=== PATIENT | male | born 1940 | race Caucasian/White ===

== ENCOUNTER 2017-02-25 14:06 | Inpatient (IN) | payer OTHER ==
[~2017-02-25] VITALS: Ht 175.3 cm; Wt 93.0 kg
[~2017-02-25 14:06] MED LIST: ASPCH81X PO; ATOR-24 PO; CHOLTAB3 PO; CLOP1TAB5 PO; COEN100C3 PO; LISI-729 PO; METO25TA3 PO; MULT-55 PO; MULTTAB58 PO; NTRGSL/4 SL; VITA400C15 PO
[2017-02-25 17:00] VITALS: BP 145/78; PULSE 57; TEMP 36.6; O2SAT 95; Ht 175.3 cm; Wt 93.0 kg
[2017-02-25] MEDS ORDERED: ACETAMINOPHEN 325 MG TAB PO PRN (17:00)
[2017-02-25] MEDS ORDERED: NITROGLYCERIN 0.4 MG SL PER TAB CHARGE SL PRN ×2 (17:00→18:45)
[2017-02-25 17:25] LABS: BASO % 0.4 %; BASO ABS # 0.03 K/uL (0-0.2); COMPLETE YES; EOS % 3.4 %; IG% 0.2 %; LYMPH % 29.7 %; LYMPH ABS # 2.39 K/uL (1.2-3.4); MEAN CORPUSCULAR HEMOGLOBIN 29.1 pg (25-34); MEAN CORPUSCULAR HGB CONC 34.3 g/dl (32-36); MEAN PLATELET VOLUME 9.1 fL (7.4-10.4); MONO % 9.1 %; NEUT % 57.2 %; PLATELET COUNT 156 K/uL (130-400); RED BLOOD COUNT 4.94 M/uL (4.7-6.1); WHITE BLOOD COUNT 8.05 K/uL (4.8-10.8)
[2017-02-25 17:51] LABS: ALT/SGPT 28 U/L (12-78); AST/SGOT 39 U/L (15-37); BLOOD UREA NITROGEN 18 mg/dl (7-18); BUN/CREATININE RATIO 22.2 (10-20); CALCIUM 8.3 mg/dl (8.5-10.1); CARBON DIOXIDE 25 mmol/L (21-32); CHLORIDE 109 mmol/L (98-107); CREATININE 0.82 mg/dl (0.60-1.40); GLUCOSE 153 mg/dl (70-99); POTASSIUM 3.5 mmol/L (3.5-5.1); SODIUM 141 mmol/L (136-145)
[2017-02-25 17:55] LABS: PARTIAL THROMBOPLASTIN RATIO 2.2; PROTHROMBIN TIME (PATIENT) 11.1 SECONDS (9.0-12.0)
[2017-02-25 17:58] LABS: ALB/GLOB RATIO 0.8 (0.9-2); ALKALINE PHOSPHATASE 123 U/L (45-117)
[2017-02-25] MEDS ORDERED: NITROGLYCERIN OINT 2% 1GM PACKET EXT SCH (18:15)
[2017-02-25] MEDS ORDERED: HEPARIN 25,000 UNIT/500ML D5W 500 ML IV PRN (19:15)
[2017-02-25 19:16] VITALS: BP 139/71; PULSE 78; TEMP 36.7; O2SAT 98
--- NOTE | 2017-02-25 19:21 | History and Physical ---
History & Physical Date & Time of Service: Feb 25, 2017 at 17:54 Chief Complaint: Chest Pain Primary Care Physician: Nilo Whitley DO . History of Present Illness Source: patient, clinic records, hospital records Pt is 77 y/o M with PMHx CAD, STEMI s/p 2 stents placed to LAD in 2012, HTN, Hyperlipidemia, CVA, presents from transfer from [facility] ER with c/o CP. Pt reports hx anterior chest pressure and tightness x 2 weeks that he would wake up with and lasted approx 2-3 hours. States he would burp a lot and then felt like CP resolved.No prior self treatment attempted. Denies relation CP with eating or worsening CP with exertion. Today he states woke up with the CP again , and later in morning was helping with meals on wheels when pain increased to 6 -7 out of 10 on pain scale and was constant with associated diaphoresis. Reports this CP today feels like his previous PR and He called EMS and was transported to [facility] ER. Was given 4 baby ASA. Pt states during transport pain decreased to 3/10 on pain scale without further intervention. In ER it is reported EKG with ST depression in V2, V3, V4 and elevation in AVR. Negative Troponin. Vitals were stable with BP: 126/89, Pulse: 92, Temp: 98.4F, Resp: 20, Pulse ox:97%. CXR with no acute infiltrate or cardiomegaly. He was started on Heparin drip. Pt follows with [facility] and was transferred here. Upon arrival here pt reports is CP free. Repeat troponin here is 6, EKG NSR rate 63 with 1st degree AV block, no significant ST elevation noted Pt does report 8 days ago started with stuffy nose and productive cough of yellow sputum. Last week tried OTC cold/flu medicine with minimal relief, hasn' t taken for 4 days. Denies fever/chills, SOB, hemoptysis. Pt was given Zithromax 500mg po at the ER. Sputum culture pending. Hx ECHO 05/2016 and EF:60-64%. Hx arterectomy LAD in 1993. Pt with hx bradycardia (HR 40's with 1st degree block) on metoprolol 12.5mg and metoprolol has been held since. Denies N/V/D/C, ADAMS, dizziness, syncope, vision changes, neck pain, neck stiffness, palpitations, sore throat, choking, otalgia, abdominal pain, paresthesias, weakness, extremity weakness, extremity edema, rashes, urinary symptoms. Past Medical/Surgical History Medical Problems: (1) Carotid artery disease Permanent Comment: 01/29/15 carotid US- 50-69% stenosis MYKEL, less than 50% stenosis LICA Status: Chronic (2) Coronary angioplasty Status: Chronic (3) Coronary artery disease Permanent Comment: S/p coronary intervention in 1993 undergoing coronary atherectomy of the left anterior descending. S/p acute coronary intervention for STEMI December 15, 2012, receiving two overlapping bare metal stents to the mid LAD. Moderate residual disease of the coronaries up to 40% left main, distal disease to the circumflex right coronary artery. Status: Chronic (4) Dyslipidemia Status: Chronic (5) History of bradycardia Permanent Comment: Holter monitor 06/16/16- dominant rhythm - sinus rhythm with first-degree AV block. PACs - mild frequency. PVCs - mild in frequency, with 141 isolated premature ventricular contractions, 8 ventricular couplets, 3 episodes of ventricular bigeminy, and 3 ventricular runs. Symptoms - none reported. Sinus bradycardia was noted with rates of 43 to 49 beats per minute during anticipated hours of sleep. No significant pauses were noted. No episodes of high-grade atrioventricular block noted. Status: Chronic (6) History of TIA (transient ischemic attack) Permanent Comment: 1995, negative workup, transient numbness Status: Chronic (7) HTN (hypertension) Status: Chronic Surgical Problems: (1) H/O lithotripsy Status: Chronic (2) S/P coronary artery stent placement Permanent Comment: 12/15/12, [facility], Dr. Shukla, 2 BMS to LAD Status: Chronic (3) S/p ureteral stent Status: Chronic Family History Noncontributory Social History Smoking Status: Former Smoker (Quit 1979, previously smoked 1ppd x 20 years) Smokeless Tobacco Use: Yes (snuff) Alcohol Use: socially (1 glass wine once a month) Drug Use: none Marital Status: Housing status: lives with significant other Occupational Status: retired Immunizations History of Influenza Vaccine: N/A History of Tetanus Vaccine?: Yes History of Pneumococcal: Yes Pneumococcal Date: Jul 23, 2011 History of Hepatitis B Vaccine: No Multi-Drug Resistant Organisms History of MDRO: No Allergies Coded Allergies: Iodine (Verified Allergy, Unknown, 06/22/09) Povidone (Verified Allergy, Unknown, 06/22/09) Home Medications Scheduled Aspirin (Aspirin Chewable), 81 MG PO DAILY Atorvastatin (Lipitor), 40 MG PO QAM Clopidogrel Bisulfate (Plavix), 75 MG PO QAM Coenzyme Q10 (Ubidecarenone) (Co Q-10), 100 MG PO DAILY Ergocalciferol (Vitamin D), 400 INTER.UNIT PO DAILY Lisinopril (Zestril), 5 MG PO QAM Multiple Vitamin (Multivitamin), 1 TABLET PO DAILY Multiple Vitamins W/ Minerals (Vision Vitamins), 1 TABLET PO DAILY Scheduled PRN Nitroglycerin (Nitrostat), 0.4 MG SL UD PRN Review of Systems Constitutional- no weight loss, See HPI Eyes- no acute visual changes ENT- see HPI Pulmonary- see HPI Cardiac- see HPI GI- no melena, no hematochezia, see HPI - no dysuria, no hematuria Musculoskeletal- no arthralgias, no myalgias Derm- no rashes, no new skin lesions Hematologic- no unusual bruising, no unusual bleeding Lymphatics- no adenopathy Endocrine- no polyuria or polydipsia; no heat or cold intolerance Neuro- no headaches, no focal neurologic symptoms Psych- no anxiety, no depression Physical Exam General Appearance: WD/WN, no apparent distress (Pt pleasant and talkative) Head: normocephalic, atraumatic Eyes: normal inspection, PERRL, EOMI, sclerae normal (conjunctivae clear; lids normal) ENT: normal ENT inspection, hearing grossly normal, pharynx normal, + nasal congestion Neck: supple, no adenopathy, thyroid normal, no JVD, trachea midline Respiratory/Chest: chest non-tender, lungs clear, normal breath sounds, no respiratory distress, no accessory muscle use Cardiovascular: regular rate, rhythm, no edema, no murmur, normal peripheral pulses Abdomen/GI: normal bowel sounds, non tender, soft Back: normal inspection Extremities/Musculoskelatal: normal inspection, normal capillary refill, no pedal edema, normal range of motion Neurologic/Psych: 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5-10.1 mg/dl Aspartate Amino Transf (AST/SGOT) 39 15-37 U/L Alanine Aminotransferase (ALT/SGPT) 28 12-78 U/L Albumin 3.3 3.4-5.0 gm/dl White Blood Count 8.05 4.8-10.8 K/uL Red Blood Count 4.94 4.7-6.1 M/uL Hemoglobin 14.4 14.0-18.0 g/dL Hematocrit 42.0 42-52 % Mean Corpuscular Volume 85.0 80-100 fL Mean Corpuscular Hemoglobin 29.1 25-34 pg Mean Corpuscular Hemoglobin Concent 34.3 32-36 g/dl Platelet Count 156 130-400 K/uL Mean Platelet Volume 9.1 7.4-10.4 fL Neutrophils (%) (Auto) 57.2 % Lymphocytes (%) (Auto) 29.7 % Monocytes (%) (Auto) 9.1 % Eosinophils (%) (Auto) 3.4 % Basophils (%) (Auto) 0.4 % Neutrophils # (Auto) 4.61 1.4-6.5 K/uL Lymphocytes # (Auto) 2.39 1.2-3.4 K/uL Monocytes # (Auto) 0.73 0.11-0.59 K/uL Eosinophils # (Auto) 0.27 0-0.5 K/uL Basophils # (Auto) 0.03 0-0.2 K/uL RDW Standard Deviation 42.8 36.4-46.3 fL RDW Coefficient of Variation 13.8 11.5-14.5 % Immature Granulocyte % (Auto) 0.2 % Immature Granulocyte # (Auto) 0.02 0.00-0.02 K/uL Impression Assessment and Plan Pt is 77yo M hx CAD, 2 stents to LAD, HTN, dyslipidemia, CVA presents with 2 week hx intermittent CP with worsening and persistent CP this morning. CHEST PAIN WITH ACS - NSTEMI -Hx CAD s/p 2 bare metal stents placed to LAD in 2012, follows with Dr Galicia -repeat EKG here with sinus rhythm rate 63, 1st degree AV block, no significant ST elevation noted -Troponin elevated to 6, CKMB 21.6 -will add magnesium lab -Nitro prn CP and repeat EKG for CP -Heparin drip continued from [facility] ER -ECHO to r/o wall motion abnormality -continue ASA and plavix -continue Lipitor -Consulted cardiology who recommends nitro paste 1" Q 6 hours. Per pt report he does not tolerate nitro well, as gets diaphoretic, dizzy and pt declines med at this time. -Plan for cardiac cath tomorrow am -Pt with hx bradycardia with beta blockers in past. Cardiology recommends holding at this time. -Will add fasting lipid panel tomorrow am. -Will repeat CBC, CMP, magnesium lab in am -Pt NPO after midnight as plan for cardiac cath tomorrow am POSSIBLE ACUTE BRONCHITIS -sputum culture pending from [facility]. F/U results tomorrow. -CXR at [facility] no acute infiltrate, COPD changes. -Pt given initial dose of Zithromax 500mg po in ER. At this time will hold on further abx as pt afebrile, no leukocytosis. HTN BP stable -continue lisinopril HYPERLIPIDEMIA -LDL was 73 on 06/05/16 -continue lipitor DVT PROPHYLAXIS -Pt on heparin drip DISPOSITION -admit tele -Full code as per discussion with pt -Follows with Dr Nilo Whitley for routine care Pt was seen with Dr Stafford Resuscitation Status FULL RESUSCITATION VTE Prophylaxis VTE Risk Assessment Done? Y/N: Yes Risk Level: Moderate Given or contraindicated: Other Anticoagulation (Heparin Drip) Note ATTENDING ADDENDUM Record reviewed. Patient interviewed and examined. Care coordinated with Grace Chaparro PA-C. Please refer to her documentation for patient's history. Briefly, 77 YO male followed by Dr. Galicia. History of coronary artery disease with PCI's of LAD in 1993 and 2012. Experiencing intermittent nonexertional chest pain over past few weeks. More severe / prolonged chest pain this morning. Took aspirin at home. Did not take NTG due to intolerance in the past. Went to ED at [facility] after about 2-3 hours of CP. Initial troponin was negative. Started on IV heparin. Referred to [facility] for further cardiac evaluation and management. CP-free upon arrival. EXAM: General- no distress VS- as noted HEENT- anicteric Neck- carotids 2/2 Lungs- clear Heart- RRR, I/ sys murmur at base, no gallop or rub Abdomen- + BS, soft, nontender Extremities- no pretibial edema or calf tenderness; radial and pedal pulses intact and symmetric Neuro- alert DATA: Total CPK 144 CPK-MB 22 Troponin I 6.12 Other lab studies as noted. EKG performed at 17:55 reviewed and demonstrated NSR at 63 / minute, first degree AV block, possible age-indeterminate septal infarct, no significant ST elevation or depression. ASSESSMENT AND PLAN: CHEST PAIN Known ischemic heart disease with PCI's LAD x 2. Recent worsening of chest pain, nonexertional. More severe / prolonged chest pain this morning. EKG at [facility] reportedly demonstrated lateral ST depression. EKG's here isoelectric ST segments. Initial troponin at [facility] normal, now 6. Probable non-STEMI. Took four 81 mg aspirin tablets at home. Started on IV heparin at [facility]. History of beta марина intolerance due to bradycardia. History of nitrate intolerance due to near-syncope. Check lipid profile. Continue atorvastatin. Consult Cardiology. NPO for possible cardiac cath tomorrow. COUGH Patient has a cough that is productive, but improving. No infiltrates on chest x-ray at [facility]. Received a dose of azithromycin there. Afebrile. Lungs clear. WBC normal. Antibiotics not indicated at this time. VTE PROPHYLAXIS IV heparin initially. Transition to low-dose enoxaparin after cardiac cath. Please refer to TIGIST Maradiaga's documentation for discussion of other issues. Red Stafford MD . Additional Copies To Nilo Whitley D.O.
[2017-02-25 23:31] VITALS: BP 104/61; PULSE 56; TEMP 36.7; O2SAT 95
[2017-02-26] VITALS (16 sets, daily range): BP systolic 115–159; BP diastolic 65–78; PULSE 47–56; TEMP 36.4–36.6; O2SAT 94–98
[2017-02-26 01:32] LABS: PARTIAL THROMBOPLASTIN RATIO 2.1
[2017-02-26 01:53] LABS: CKMB/CK RATIO 13.3 (0-3.0)
[2017-02-26 05:43] LABS: BASO % 0.6 %; BASO ABS # 0.05 K/uL (0-0.2); COMPLETE YES; EOS % 3.8 %; HEMATOCRIT 40.6 % (42-52); IG% 0.2 %; LYMPH % 31.6 %; LYMPH ABS # 2.72 K/uL (1.2-3.4); MEAN CELL VOLUME 85.5 fL (80-100); MEAN CORPUSCULAR HEMOGLOBIN 29.1 pg (25-34); MEAN PLATELET VOLUME 9.1 fL (7.4-10.4); MONO % 8.9 %; NEUT % 54.9 %; PLATELET COUNT 145 K/uL (130-400); RED BLOOD COUNT 4.75 M/uL (4.7-6.1); WHITE BLOOD COUNT 8.62 K/uL (4.8-10.8)
[2017-02-26 05:55] LABS: PARTIAL THROMBOPLASTIN RATIO 2.2
[2017-02-26 06:05] LABS: BUN/CREATININE RATIO 24.4 (10-20); CALCIUM 8.2 mg/dl (8.5-10.1); CREATININE 0.74 mg/dl (0.60-1.40); MAGNESIUM 2.2 mg/dl (1.8-2.4); POTASSIUM 3.8 mmol/L (3.5-5.1)
[2017-02-26 06:18] LABS: CHOLESTEROL/HDL RATIO 2.7
[2017-02-26] MEDS: ASPIRIN 81 MG ECTAB PO SCH (09:17)
[2017-02-26] MEDS: ATORVASTATIN 40 MG TAB PO SCH (09:17)
[2017-02-26] MEDS: CLOPIDOGREL BISULFATE 75 MG TAB PO SCH (09:19)
[2017-02-26] MEDS: CHOLECALCIFEROL 400 INTER.UNIT TAB PO SCH (09:21)
[2017-02-26] MEDS: LISINOPRIL 5 MG TAB PO SCH (09:22)
[2017-02-26] MEDS ORDERED: DC ALL ANTICOAGULANTS ONE (10:00)
--- NOTE | 2017-02-26 10:32 | Cardiology Consultation ---
Cardiology Consultation Date of Consultation: Feb 26, 2017 Requesting Physician: lizett Attending Farmworker Poultry: sofi History of Present Illness Patient is a 77 year old male with a hx of coronary atherectomy LAD 1993 and stents LAD 2012 presents with a Non-STEMI. Past Medical/Surgical History Problem List: Medical Problems: (1) Carotid artery disease (2) Chest pain (3) Coronary angioplasty (4) Coronary artery disease (5) Dyslipidemia (6) History of bradycardia (7) History of TIA (transient ischemic attack) (8) HTN (hypertension) Surgical Problems: (1) H/O lithotripsy (2) S/P coronary artery stent placement (3) S/p ureteral stent History Past Medical History: Per hx of CC Past Surgical History: Social History: none smoker Family History: noncontributory Review Of Systems General: The patient denies weight change, night sweats, fever, chills. Head: The patient denies headache and prior head trauma. Cardiovascular: The patient denies chest pain or chest discomfort, dyspnea on exertion, palpitations, PND, orthopnea, edema, spontaneous shortness of breath, syncope and near syncope. Pulmonary: The patient denies cough, wheeze, pleurisy, hemoptysis, sputum, and excessive snoring. Gastrointestinal: The patient denies nausea, vomiting, diarrhea, constipation, bloating, hematemesis, hematochezia, and abdominal pain. Skin: The patient denies diaphoresis and rash. Musculoskeletal: The patient denies joint pain, joint swelling, myalgia, back pain, neck pain and prior injuries. Neurological: The patient denies prior stroke and seizures Allergies Coded Allergies: Iodine (Verified Allergy, Unknown, 06/22/09) Povidone (Verified Allergy, Unknown, 06/22/09) Medications Reported Home Medications Medications Dose Route/Sig Max Daily Dose Days Date Category Zestril (Lisinopril) 5 Mg Tab 5 Mg PO QAM 12/17/12 Rx Plavix (Clopidogrel Bisulfate) 75 Mg Tab 75 Mg PO QAM 12/17/12 Rx Lipitor (Atorvastatin Calcium) 40 Mg Tab 40 Mg PO QAM 30 12/17/12 Rx Vitamin D (Ergocalciferol) 400 Inter.unit Tab 400 Inter.unit PO DAILY 12/15/12 Reported Co Q-10 (Coenzyme Q10 (Ubidecarenone)) 100 Mg Cap 100 Mg PO DAILY 12/15/12 Reported Multivitamin (Multiple Vitamin) 1 Tab Tab 1 Tablet PO DAILY 12/15/12 Reported Vision Vitamins (Multiple Vitamins W/ Minerals) 1 Tab Tab 1 Tablet PO DAILY 12/15/12 Reported Aspirin Chewable (Aspirin) 81 Mg Chew 81 Mg PO DAILY 12/15/12 Reported Nitrostat (Nitroglycerin) 0.4 Mg Tab 0.4 Mg SL UD PRN 05/20/06 Reported Physical Exam Vital Signs (Last 8hrs): Last 8 Hrs Date Time Temp Pulse Resp B/P (MAP) Pulse Ox O2 Delivery O2 Flow Rate FiO2 02/26/17 10:18 96 Nasal Cannula 2.0 02/26/17 08:00 Room Air 02/26/17 07:32 36.6 50 16 127/72 (90) 96 Room Air 02/26/17 05:26 36.6 52 18 115/67 98 Room Air 02/26/17 04:16 36.6 52 18 115/67 (83) 98 Room Air 02/26/17 04:00 Room Air General Appearance: Alert and Oriented x3. NAD. Head: Normocephalic Atraumatic. Eyes: PERRLA, EOMI, conjunctiva and sclera clear Neck: Supple. No carotid bruits noted. No JVD. No HJD. Respiratory: Breath sounds clear to auscultation bilaterally. No w/r/r. Cardiovascular: Reg rate and rhythm. S1 and S2 noted. No murmurs, rubs, gallops. PMI non displace. Abdomen: Normal bowel sounds, soft nontender. no abdominal bruits. Extremities: No edema, no clubbing or cyanosis. distal pulses 2/4 bilaterally. Neuro: No focal deficits. Psychiatric: Normal affect. Data Last 24 Hours Test 02/25/17 17:11 02/25/17 17:12 02/26/17 01:04 02/26/17 05:25 Prothrombin Time 11.1 SECONDS Prothromb Time International Ratio 1.0 Activated Partial Thromboplast Time 57.6 SECONDS 54.4 SECONDS 56.1 SECONDS Partial Thromboplastin Ratio 2.2 2.1 2.2 Sodium Level 141 mmol/L 141 mmol/L Potassium Level 3.5 mmol/L 3.8 mmol/L Chloride Level 109 mmol/L 109 mmol/L Carbon Dioxide Level 25 mmol/L 25 mmol/L Anion Gap 7.0 mmol/L 7.0 mmol/L Blood Urea Nitrogen 18 mg/dl 18 mg/dl Creatinine 0.82 mg/dl 0.74 mg/dl Estimated GFR () 100.3 104.6 Estimated GFR (Non- 86.5 90.2 BUN/Creatinine Ratio 22.2 24.4 Random Glucose 153 mg/dl 96 mg/dl Calcium Level 8.3 mg/dl 8.2 mg/dl Magnesium Level 2.3 mg/dl 2.2 mg/dl Total Bilirubin 1.1 mg/dl Aspartate Amino Transf (AST/SGOT) 39 U/L Alanine Aminotransferase (ALT/SGPT) 28 U/L Alkaline Phosphatase 123 U/L Total Creatine Kinase 144 U/L 132 U/L 120 U/L Creatine Kinase MB 21.6 ng/ml 17.6 ng/ml 14.4 ng/ml Creatine Kinase MB Ratio 15.0 13.3 12.0 Troponin I 6.120 ng/ml 6.030 ng/ml 4.040 ng/ml Total Protein 7.2 gm/dl Albumin 3.3 gm/dl Globulin 3.9 gm/dl Albumin/Globulin Ratio 0.8 White Blood Count 8.05 K/uL 8.62 K/uL Red Blood Count 4.94 M/uL 4.75 M/uL Hemoglobin 14.4 g/dL 13.8 g/dL Hematocrit 42.0 % 40.6 % Mean Corpuscular Volume 85.0 fL 85.5 fL Mean Corpuscular Hemoglobin 29.1 pg 29.1 pg Mean Corpuscular Hemoglobin Concent 34.3 g/dl 34.0 g/dl Platelet Count 156 K/uL 145 K/uL Mean Platelet Volume 9.1 fL 9.1 fL Neutrophils (%) (Auto) 57.2 % 54.9 % Lymphocytes (%) (Auto) 29.7 % 31.6 % Monocytes (%) (Auto) 9.1 % 8.9 % Eosinophils (%) (Auto) 3.4 % 3.8 % Basophils (%) (Auto) 0.4 % 0.6 % Neutrophils # (Auto) 4.61 K/uL 4.73 K/uL Lymphocytes # (Auto) 2.39 K/uL 2.72 K/uL Monocytes # (Auto) 0.73 K/uL 0.77 K/uL Eosinophils # (Auto) 0.27 K/uL 0.33 K/uL Basophils # (Auto) 0.03 K/uL 0.05 K/uL RDW Standard Deviation 42.8 fL 42.9 fL RDW Coefficient of Variation 13.8 % 13.7 % Immature Granulocyte % (Auto) 0.2 % 0.2 % Immature Granulocyte # (Auto) 0.02 K/uL 0.02 K/uL Est Creatinine Clear Calc Drug Dose 97.2 ml/min Triglycerides Level 91 mg/dl Cholesterol Level 93 mg/dl HDL Cholesterol 34 mg/dl LDL Cholesterol, Calculated 41 mg/dl VLDL Cholesterol, Calculated 18 mg/dl Cholesterol/HDL Ratio 2.7 Imaging: EKG: Telemetry reviewed: Assessment & Plan Plan for Cath today. Risks, Benefit and Options discussed with patient and is willing to proceed.
[2017-02-26] MEDS ORDERED: SODIUM CHLORIDE 0.9% 1000ML 1,000 ML IV SCH ×2 (11:15→16:15)
[2017-02-26] MEDS ORDERED: MIDAZOLAM HCL 1 MG/ML 2ML VIAL ONE (14:03)
[2017-02-26] MEDS ORDERED: RANITIDINE HCL 25 MG/ML INJ ONE (14:13)
[2017-02-26] MEDS ORDERED: METHYLPREDNISOLONE 125 MG VIAL ONE (14:13)
[2017-02-26] MEDS ORDERED: DiphenhydrAMINE HCL 50 MG/ML VIAL ONE (14:13)
[2017-02-26] MEDS ORDERED: HEPARIN SOD (PORCINE) 1000 UNIT/ML 10 ML VIAL ONE ×2 (14:33→16:04)
[2017-02-26] MEDS ORDERED: NiCARDipine HCL INJ 2.5 MG/ML 10 ML AMP ONE (14:43)
[2017-02-26] MEDS ORDERED: NITROGLYCERIN/D5W 100MCG/ML 20ML SYR ONE (14:44)
--- NOTE | 2017-02-26 14:55 | Cardiac Catheterization ---
Procedure Note Procedure Date Feb 26, 2017. Pre-Procedure Diagnosis Non STEMI AUC Score 9 Post-Procedure Diagnosis Severe CAD Procedure(s) Performed Coronary Angiography Marketing Editor Dr. Harris Plastic Boat Patcher(s) None Estimated Blood Loss None Medication(s) Heparin, Versed, Lidocaine 1%, Diphenhydramine Summary of Findings Severe CAD Hemodynamics Rest Ao: 147/70 Final Ao: 136/81 LV: Valve not crossed Recommendations PCI without planned CABG Specimens None Radiation Exposure (mGy) 1654 Contrast (mls) 78 Procedural Complication(s) None Disposition PCU ACC Data Cardiac Status Clinical evaluation leading to the procedure CAD Presntation: Non STEMI Anginal Classification: CCS III Heart Failure: No Cardiogenic Shock w/in 24Hrs: No Cardiac Arrest w/in 24Hrs: No Imaging studies past 6 months: No Stress studies past 6 months: No Coronary Anatomy Dominant: Right Left Main (% Stenosis): Normal LAD (% Stenosis): Normal (Patent stents) Circumflex (% Stenosis): Ostial (95), Proximal (95) OM1 (% Stenosis): Mid (50) RCA (% Stenosis): Normal Diagnostic Status: Urgent Closure Device Percutaneous Entry Location: Femoral
--- NOTE | 2017-02-26 15:21 | ECHOCARDIOGRAM REPORT ---
*NOTICE TO RECEIVING DEMOCRAT AGENCY This information is strictly Confidential and protected under [place] law. [place] law prohibits you from making any further disclosure of this information unless further disclosure is expressly permitted by the written consent of the person to whom it pertains or is authorized by law. A general authorization for the release of medical or other information is not sufficient for this purpose. Hospital accepts no responsibility if the information is made available to any other person, INCLUDING THE PATIENT. Interpretation Summary * Name: DOMONIQUE RAMOS Study Date: 02/26/2017 06:35 AM BP: 115/67 mmHg * Patient Location: C.2T\S\E218\S\1 HR: 52 * : 1940 (M/d/yyyy) Gender: Male Height: 69 in * Age: 77 yrs Ethnicity: CA Weight: 205 lb * Ordering Physician: Grace Maradiaga * Referring Physician: UNKNOWN * Performed By: Nieves Duvall RCS * * Reason For Study: Chest Pain * BSA: 2.1 m2 * -- Conclusions -- * The left ventricle is normal in size. * Left ventricular systolic function is normal. * Ejection Fraction = 55-60%. * The right ventricular systolic function is normal. * The left atrium is mildly dilated. * The right atrium is mildly dilated. * Aortic valve sclerosis mild, without significant aortic valvular stenosis. Procedure Details * A complete two-dimensional transthoracic echocardiogram was performed (2D, M-mode, Doppler and color flow Doppler). Left Ventricle * The left ventricle is normal in size. * There is normal left ventricular wall thickness. * Left ventricular systolic function is normal. * Ejection Fraction = 55-60%. * The left ventricular wall motion is normal. Right Ventricle * The right ventricle is normal size. * The right ventricular systolic function is normal. Atria * The left atrium is mildly dilated. * The right atrium is mildly dilated. Mitral Valve * The mitral valve is normal in structure and function. Tricuspid Valve * The tricuspid valve is normal in structure and function. Aortic Valve * Aortic valve sclerosis mild, without significant aortic valvular stenosis. * There is no significant aortic regurgitation. Pulmonic Valve * The pulmonic valve is not well visualized. * Mild pulmonic valvular regurgitation. Great Vessels * The aortic root and proximal ascending aorta are normal sized. Pericardium/Pleural * There is no pericardial effusion. MMode 2D Measurements and Calculations IVSd 1.1 cm IVSs 1.4 cm LVIDd 3.9 cm LVIDs 2.8 cm LVPWd 1.0 cm LVPWs 1.4 cm IVS/LVPW 1.1 FS 27.9 % EDV(Teich) 65.9 ml ESV(Teich) 29.8 ml EF(Teich) 54.7 % EDV(cubed) 59.3 ml ESV(cubed) 22.2 ml EF(cubed) 62.5 % % IVS thick 24.9 % % LVPW thick 32.9 % LV mass(C)d 134.6 grams LV mass(C)dI 64.5 grams/m\S\2 LV mass(C)s 125.6 grams LV mass(C)sI 60.2 grams/m\S\2 SV(Teich) 36.1 ml SI(Teich) 17.3 ml/m\S\2 SV(cubed) 37.1 ml SI(cubed) 17.8 ml/m\S\2 Ao root diam 3.7 cm Ao root area 10.5 cm\S\2 ACS 1.7 cm LA dimension 4.3 cm asc Aorta Diam 3.5 cm LA/Ao 1.2 Doppler Measurements and Calculations MV E max glendy 83.7 cm/sec MV A max glendy 49.9 cm/sec MV E/A 1.7 MV P1/2t max glendy 89.3 cm/sec MV P1/2t 66.4 msec MVA(P1/2t) 3.3 cm\S\2 MV dec slope 393.6 cm/sec\S\2 MV dec time 0.23 sec Ao V2 max 156.4 cm/sec Ao max PG 9.8 mmHg Ao max PG (full) 6.7 mmHg LV V1 max PG 3.1 mmHg LV V1 max 88.0 cm/sec PA V2 max 92.9 cm/sec PA max PG 3.5 mmHg PI max glendy 222.4 cm/sec PI max PG 19.8 mmHg PI dec slope 226.3 cm/sec\S\2 PI P1/2t 287.9 msec TR max glendy 234.5 cm/sec
[2017-02-26] MEDS ORDERED: CLOPIDOGREL BISULFATE 300 MG TAB PO ONE (15:55)
--- NOTE | 2017-02-26 16:01 | Procedure Note ---
Post-Mod Sedation Assessment General Date of Moderate Sedation Feb 26, 2017. Vital Signs: Vital Signs Past 12 Hours Date Time Temp Pulse Resp B/P (MAP) Pulse Ox O2 Delivery O2 Flow Rate FiO2 02/26/17 15:52 56 16 153/81 (105) 96 Room Air 02/26/17 12:00 Room Air 02/26/17 11:07 36.5 47 123/75 (91) 98 Nasal Cannula 02/26/17 10:18 96 Nasal Cannula 2.0 02/26/17 08:00 Room Air 02/26/17 07:32 36.6 50 16 127/72 (90) 96 Room Air 02/26/17 05:26 36.6 52 18 115/67 98 Room Air 02/26/17 04:16 36.6 52 18 115/67 (83) 98 Room Air Review - Discharge Criteria Vital Signs Stable: Yes Alert/Oriented/Conversant: Yes Returned to Baseline Mental St: Yes Nausea Absent/Minimal: Yes Pain/Discomfort/Absent/Minimal: Yes Normal/Baseline Respirations: Yes Active Bleeding?: No Pt Received D/C Instructions: N/A Prescriptions Given: Transmitted Specific Proced. D/C Criteria Distal Pulses Present (Cardiac: Yes Groin site assessed-Card Cath: N/A Voided Prior To Discharge: N/A Discharged Patients Adult Escort/Transportation: Yes
[2017-02-26] MEDS ORDERED: NITROGLYCERIN 0.4 MG SL PER TAB CHARGE SL PRN (16:15)
[2017-02-26] MEDS ORDERED: ACETAMINOPHEN 325 MG TAB PO PRN (16:15)
--- NOTE | 2017-02-26 16:17 | Cardiac Catheterization ---
Procedure Note Procedure Date Feb 26, 2017. 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 Harris. Briefly, patient found to have a severe 99% ostial circumflex stenosis. Patent prior LAD bare-metal stents. -- PCI -- Antithrombotic therapy: Heparin, clopidogrel Procedure: LM cannulated with EBU 3.5 guide Prowater wire placed into distal LAD Whisper wire passed across ostial LCx lesion into distal circumflex LCx lesion predilated with 2.5 and 3.0 compliant balloons Noted to have a severe ostial stenosis in large OM1 2nd Whisper wire placed into distal OM1 OM1 ostium predilated with 2.5 balloon 3.5 x 15 Integrity BMS into OM1 back into proximal circumflex. 2nd 3.5 x 12 Integrity BMS placed from ostium overlapping with 1st stent IVUS used to assess LM -- few stent struts noted to be hanging out in left main but IVUS catheter passed without difficulty IVUS of circumflex showed underexpanded stent at the site of original lesion in proximal circumflex Stents post-dilated with 3.5 noncompliant balloon Post procedure LISANDRA 3 flow, stent well expanded with minimal residual stenosis and no apparent cardiac complications. Arterial Closure: Angioseal Summary: 1. Successful PCI of ostial circumflex into 1st OM with 2 overlapping BMS (3.5 x 12, 3.5 x 15 Integrity) Recommendations: To PCU for continued monitoring Reloaded with clopidogrel 300mg tag and label cutter Continue dual-antiplatelet therapy for at least 1 year, likely indefinitely Continue statin, and ASCVD risk factor modification per Dr. Harris Consult cardiac Rehab Hemodynamics Rest Ao: 124/36/72 Final Ao: 159/60/100 LV: -- Recommendations PCI without planned CABG Specimens None Radiation Exposure (mGy) 5910 Contrast (mls) 258 Visi Fluids (cc crystalloids) 136 NS Drains None Anesthesia Moderate Procedural Complication(s) None Disposition PCU ACC Data Cardiac Status Clinical evaluation leading to the procedure CAD Presntation: Non STEMI Anginal Classification: CCS IV Heart Failure: No, NYHA Class: CCS I Diagnostic Physician's Name: Harjeet Harris DO Status: Elective Closure Device Percutaneous Entry Location: Femoral Closure Device: Angio-Seal Recommendations: PCI without planned CABG PCI Indication: PCI for high risk Non-STEMI Lesion Segment Name: Ostial circumflex Culprit Artery: Yes Stenosis Prior to Rx (%): 99 Chronic Total Occlusion: No IVUS: Yes FFR: No Pre-Procedure LISANDRA Flow: 3 Previously Treated Lesion: No Lesion Complexity: High/C Lesion Length (mm): 20 Thrombus Present: No Bifurcation Lesion: Yes Guidewire Across Lesion: Yes Guidewire: Stenosis Post-Procedure (%): 0 Post-Procedure LISANDRA Flow: 3 Device(s) Deployed: Yes Intraprocedure Events Significant Dissection: No Perforation: No
--- NOTE | 2017-02-26 18:16 | Progress Note ---
Medicine Progress Note Date & Time of Visit: Feb 26, 2017 at 09:52. Subjective Pt was seen and examined Lying in bed with no distress Pt said that he feels fine now Denies any chest pain, palpitation, dizziness and SOB Objective Last 8 Hrs Date Time Temp Pulse Resp B/P (MAP) Pulse Ox O2 Delivery O2 Flow Rate FiO2 02/26/17 17:45 56 20 131/70 (90) 96 Room Air 02/26/17 17:15 52 19 126/69 (88) 95 Room Air 02/26/17 17:00 51 15 146/71 (96) 95 Room Air 02/26/17 16:45 52 16 144/77 (99) 96 Room Air 02/26/17 16:30 47 19 159/76 (103) 98 Room Air 02/26/17 16:15 Room Air 02/26/17 16:15 36.6 53 18 152/78 (102) 97 Room Air 02/26/17 16:07 56 16 145/77 (99) 96 Room Air 02/26/17 15:52 56 16 153/81 (105) 96 Room Air 02/26/17 12:00 Room Air 02/26/17 11:07 36.5 47 123/75 (91) 98 Nasal Cannula 02/26/17 10:18 96 Nasal Cannula 2.0 Physical Exam: General- No acute distress Head- atraumatic Eyes- PERRL, EOMI ENT- oropharynx clear Neck- supple, no JVD Lungs- clear to auscultation Heart- regular rhythm Abdomen- normal bowel sounds, soft Extremities- no calf tenderness Neuro- alert, oriented x 3; PERRL, EOMI Skin- warm & dry Laboratory Results: Last 24 Hours Test 02/26/17 01:04 02/26/17 05:25 02/26/17 14:54 02/26/17 15:15 Activated Partial Thromboplast Time 54.4 SECONDS 56.1 SECONDS Partial Thromboplastin Ratio 2.1 2.2 Total Creatine Kinase 132 U/L 120 U/L Creatine Kinase MB 17.6 ng/ml 14.4 ng/ml Creatine Kinase MB Ratio 13.3 12.0 Troponin I 6.030 ng/ml 4.040 ng/ml White Blood Count 8.62 K/uL Red Blood Count 4.75 M/uL Hemoglobin 13.8 g/dL Hematocrit 40.6 % Mean Corpuscular Volume 85.5 fL Mean Corpuscular Hemoglobin 29.1 pg Mean Corpuscular Hemoglobin Concent 34.0 g/dl Platelet Count 145 K/uL Mean Platelet Volume 9.1 fL Neutrophils (%) (Auto) 54.9 % Lymphocytes (%) (Auto) 31.6 % Monocytes (%) (Auto) 8.9 % Eosinophils (%) (Auto) 3.8 % Basophils (%) (Auto) 0.6 % Neutrophils # (Auto) 4.73 K/uL Lymphocytes # (Auto) 2.72 K/uL Monocytes # (Auto) 0.77 K/uL Eosinophils # (Auto) 0.33 K/uL Basophils # (Auto) 0.05 K/uL RDW Standard Deviation 42.9 fL RDW Coefficient of Variation 13.7 % Immature Granulocyte % (Auto) 0.2 % Immature Granulocyte # (Auto) 0.02 K/uL Sodium Level 141 mmol/L Potassium Level 3.8 mmol/L Chloride Level 109 mmol/L Carbon Dioxide Level 25 mmol/L Anion Gap 7.0 mmol/L Blood Urea Nitrogen 18 mg/dl Creatinine 0.74 mg/dl Est Creatinine Clear Calc Drug Dose 97.2 ml/min Estimated GFR () 104.6 Estimated GFR (Non- 90.2 BUN/Creatinine Ratio 24.4 Random Glucose 96 mg/dl Calcium Level 8.2 mg/dl Magnesium Level 2.2 mg/dl Triglycerides Level 91 mg/dl Cholesterol Level 93 mg/dl HDL Cholesterol 34 mg/dl LDL Cholesterol, Calculated 41 mg/dl VLDL Cholesterol, Calculated 18 mg/dl Cholesterol/HDL Ratio 2.7 Kaolin Activated Coagulation Time 241 SECONDS 241 SECONDS Assessment & Plan NSTEMI Hx CAD s/p 2 bare metal stents placed to LAD in 2012, present with chest pain EKG showed no significant ST elevation Troponin on admission was 6.1 trending to 6.03 --> 4.04 On heparin drip Continue asa, plavix, statin No Beta 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 * Left ventricular systolic function is normal. * Ejection Fraction = 55-60%. * The right ventricular systolic function is normal. * The left atrium is mildly dilated. * The right atrium is mildly dilated. * Aortic valve sclerosis mild, without significant aortic valvular stenosis. Cough CXR at [facility] no acute infiltrate Afebrile, no leukocytosis No abx at this time Improved HTN continue lisinopril Monitor BP HYPERLIPIDEMIA LDL 41 on 03/03 Continue lipitor DVT PROPHYLAXIS Heprin drip CODE STATUS FULL CODE DISPOSITION Continue to monitor in telemetry Consultants: Cardiology Procedures: Cardia cath successful PCI Drug Eluting Stent Current Inpatient Medications: Current Inpatient Medications Medications (Trade) Dose Ordered Sig/Lucy Route Start Time Stop Time Status Last Admin Dose Admin Acetaminophen (Tylenol Tab) 650 mg Q4H PRN PO 02/25/17 17:00 03/27/17 16:59 Aspirin (Ecotrin Tab) 81 mg DAILY PO 02/26/17 09:00 03/28/17 08:59 02/26/17 09:17 81 MG Atorvastatin Calcium (Lipitor Tab) 40 mg QAM PO 02/26/17 09:00 03/28/17 08:59 02/26/17 09:17 40 MG Clopidogrel Bisulfate (plAVix TAB) 75 mg QAM PO 02/26/17 09:00 03/28/17 08:59 02/26/17 09:19 75 MG Cholecalciferol (Vitamin D Tab) 400 inter.unit DAILY PO 02/26/17 09:00 03/28/17 08:59 02/26/17 09:21 400 INTER.UNIT Lisinopril (Zestril Tab) 5 mg QAM PO 02/26/17 09:00 03/28/17 08:59 02/26/17 09:22 5 MG Nitroglycerin (Nitrostat Tab) 0.4 mg UD PRN SL 02/25/17 18:45 03/27/17 18:44 Sodium Chloride 1,000 ml @ 100 mls/hr Q10H IV 02/26/17 16:15 02/26/17 21:14 02/26/17 16:32 100 MLS/HR
[2017-02-27] MEDS ORDERED: SODIUM CHLORIDE 0.9% 1000ML 1,000 ML IV SCH
[2017-02-27 03:19] VITALS: BP 124/70; PULSE 49; TEMP 36.5; O2SAT 95
[2017-02-27 07:09] LABS: HEMATOCRIT 40.2 % (42-52); MEAN CELL VOLUME 83.9 fL (80-100); MEAN CORPUSCULAR HEMOGLOBIN 29.9 pg (25-34); MEAN CORPUSCULAR HGB CONC 35.6 g/dl (32-36); MEAN PLATELET VOLUME 9.5 fL (7.4-10.4); PLATELET COUNT 164 K/uL (130-400); RED BLOOD COUNT 4.79 M/uL (4.7-6.1); WHITE BLOOD COUNT 14.66 K/uL (4.8-10.8)
[2017-02-27 07:13] VITALS: BP 147/73; PULSE 54; TEMP 36.5; O2SAT 95
[2017-02-27 07:22] LABS: PARTIAL THROMBOPLASTIN RATIO 0.9
[2017-02-27 07:38] LABS: BUN/CREATININE RATIO 23.5 (10-20); CALCIUM 8.6 mg/dl (8.5-10.1); CREATININE 0.76 mg/dl (0.60-1.40); POTASSIUM 3.7 mmol/L (3.5-5.1)
[2017-02-27] MEDS: ASPIRIN 81 MG ECTAB PO SCH (08:29)
[2017-02-27] MEDS: ATORVASTATIN 40 MG TAB PO SCH (08:29)
[2017-02-27] MEDS: CLOPIDOGREL BISULFATE 75 MG TAB PO SCH (08:29)
[2017-02-27] MEDS: LISINOPRIL 5 MG TAB PO SCH (08:30)
[2017-02-27] MEDS: CHOLECALCIFEROL 400 INTER.UNIT TAB PO SCH (08:30)
[2017-02-27 11:29] VITALS: BP 113/63; PULSE 68; TEMP 36.4; O2SAT 95
--- NOTE | 2017-02-27 11:58 | CARDIOLOGY PROGRESS NOTE ---
DATE: 02/27/2017 FOLLOW-UP VISIT DATE: 02/27/2017 SUBJECTIVE: The patient is a 77-year-old male with history of previous coronary interventions who presented with progressive chest pain. Yesterday he underwent a cardiac catheterization that showed previous stents in his LAD to be patent; however, he had a new proximal stenosis of the left circumflex artery. He received a bare metal stent. His night was unremarkable and he is doing well. He is anxious to return home. OBJECTIVE: VITAL SIGNS: Blood pressure is 140/70, pulse is regular at 54. He is afebrile. HEAD, EYES, EARS, NOSE, AND THROAT: He is normocephalic. Pupils are equal and reactive to light. Extraocular muscles are intact bilaterally. NECK: The neck veins are flat. Carotids have good upstrokes bilaterally without bruits. Thyroid is nonpalpable. RESPIRATORY: Breath sounds equal bilaterally and clear to auscultation. CARDIOVASCULAR: Heart has a regular rhythm. Normal S1, S2. No S3, S4. No cardiac rubs or murmurs. GASTROINTESTINAL: Abdomen is soft, nontender without organomegaly. EXTREMITIES: Free of edema, digit clubbing, or cyanosis. NEUROLOGIC: Grossly intact. SKIN: Warm to touch. LYMPH NODES: Negative to palpation. IMPRESSION: 1. Unstable coronary artery disease. 2. Status post bare metal stent proximal left circumflex artery. RECOMMENDATIONS: The patient is ready for discharge. The catheterization site is without hematoma or bleeding. He has been ambulated. He has a follow-up appointment with Madhuri Plaza next week at our office.
[2017-02-27 12:08] VITALS: BP 113/63; PULSE 68; TEMP 36.4; O2SAT 95
--- NOTE | 2017-02-27 14:16 | Progress Note ---
Medicine Progress Note Date & Time of Visit: Feb 27, 2017 at 14:13. Subjective Pt was seen and examined Lying in bed with no distress pt said that he feels fine right groin area is not tender and no hematoma denies any chest pain, palpitation, dizziness and SOB Objective Last 8 Hrs Date Time Temp Pulse Resp B/P (MAP) Pulse Ox O2 Delivery O2 Flow Rate FiO2 02/27/17 12:08 36.4 68 20 95 Room Air 02/27/17 12:03 Room Air 02/27/17 11:29 36.4 68 20 113/63 (80) 95 Room Air 02/27/17 09:05 Room Air 02/27/17 07:13 36.5 54 21 147/73 (97) 95 Nasal Cannula Physical Exam: General- No acute distress Head- atraumatic Eyes- PERRL, EOMI ENT- oropharynx clear Neck- supple, no JVD Lungs- clear to auscultation Heart- regular rhythm Abdomen- normal bowel sounds, soft Extremities- no calf tenderness Neuro- alert, oriented x 3; PERRL, EOMI Skin- warm & dry Laboratory Results: Last 24 Hours Test 02/26/17 14:54 02/26/17 15:15 02/27/17 06:39 Kaolin Activated Coagulation Time 241 SECONDS 241 SECONDS White Blood Count 14.66 K/uL Red Blood Count 4.79 M/uL Hemoglobin 14.3 g/dL Hematocrit 40.2 % Mean Corpuscular Volume 83.9 fL Mean Corpuscular Hemoglobin 29.9 pg Mean Corpuscular Hemoglobin Concent 35.6 g/dl RDW Standard Deviation 41.1 fL RDW Coefficient of Variation 13.4 % Platelet Count 164 K/uL Mean Platelet Volume 9.5 fL Activated Partial Thromboplast Time 23.6 SECONDS Partial Thromboplastin Ratio 0.9 Sodium Level 139 mmol/L Potassium Level 3.7 mmol/L Chloride Level 107 mmol/L Carbon Dioxide Level 22 mmol/L Anion Gap 10.0 mmol/L Blood Urea Nitrogen 18 mg/dl Creatinine 0.76 mg/dl Est Creatinine Clear Calc Drug Dose 94.6 ml/min Estimated GFR () 103.4 Estimated GFR (Non- 89.2 BUN/Creatinine Ratio 23.5 Random Glucose 128 mg/dl Calcium Level 8.6 mg/dl Assessment & Plan NSTEMI Hx CAD s/p 2 bare metal stents placed to LAD in 2012, present with chest pain EKG showed no significant ST elevation Troponin on admission was 6.1 trending to 6.03 --> 4.04 On heparin drip Continue asa, plavix, statin No Beta 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 * Left ventricular systolic function is normal. * Ejection Fraction = 55-60%. * The right ventricular systolic function is normal. * The left atrium is mildly dilated. * The right atrium is mildly dilated. * Aortic valve sclerosis mild, without significant aortic valvular stenosis. Cough CXR at [facility] no acute infiltrate Afebrile, no leukocytosis No abx at this time Improved HTN continue lisinopril Monitor BP HYPERLIPIDEMIA LDL 41 on 03/03 Continue lipitor DVT PROPHYLAXIS Heprin drip CODE STATUS FULL CODE DISPOSITION discharge home today Consultants: Cardiology Procedures: Cardia cath successful PCI Drug Eluting Stent Current Inpatient Medications: Current Inpatient Medications Medications (Trade) Dose Ordered Sig/Lucy Route Start Time Stop Time Status Last Admin Dose Admin Acetaminophen (Tylenol Tab) 650 mg Q4H PRN PO 02/25/17 17:00 03/27/17 16:59 Aspirin (Ecotrin Tab) 81 mg DAILY PO 02/26/17 09:00 03/28/17 08:59 02/27/17 08:29 81 MG Atorvastatin Calcium (Lipitor Tab) 40 mg QAM PO 02/26/17 09:00 03/28/17 08:59 02/27/17 08:29 40 MG Clopidogrel Bisulfate (plAVix TAB) 75 mg QAM PO 02/26/17 09:00 03/28/17 08:59 02/27/17 08:29 75 MG Cholecalciferol (Vitamin D Tab) 400 inter.unit DAILY PO 02/26/17 09:00 03/28/17 08:59 02/27/17 08:30 400 INTER.UNIT Lisinopril (Zestril Tab) 5 mg QAM PO 02/26/17 09:00 03/28/17 08:59 02/27/17 08:30 5 MG Nitroglycerin (Nitrostat Tab) 0.4 mg UD PRN SL 02/25/17 18:45 03/27/17 18:44
--- NOTE | 2017-02-27 14:35 | Discharge Instructions ---
Discharge Instructions Date of Service Feb 27, 2017. Admission Reason for Admission: Chest Pain Discharge Discharge Diagnosis / Problem: NSTEMI, Cough, Hypertension Discharge Goals Goal(s): Decrease discomfort, Improve function, Improve disease control Activity Recommendations Activity Limitations: resume your previous activity . Instructions / Follow-Up Instructions / Follow-Up Follow up with your new primary care provider Dr. Whitley on 03/02 @ 1:05 pm Follow up appointment with cardiology Madhuri SHEPHERD next (already had appointment schedule) Continue Plavix and aspirin for at least 1 year. Please check the right groin area for any bleeding and swelling. Keep right groin area clean and dry when you are not showering. Do not use creams, lotions or ointment on the wound site. Do not strain during bowel movements for the first 3 to 4 days after the procedure to prevent bleeding from the catheter insertion site. Avoid heavy lifting (more than 10 pounds) and pushing or pulling heavy objects for the first 5 to 7 days after the procedure. Do not participate in strenuous activities for 5 days after the procedure. This includes most sports - jogging, golfing, play tennis, and bowling. You may climb stairs if needed, but walk up and down the stairs more slowly than usual. Gradually increase your activities until you reach your normal activity level within one week after the procedure. Current Hospital Diet Patient's current hospital diet: AHA Diet (Heart Healthy) Discharge Diet Recommended Diet: AHA Diet (Heart Healthy) Pending Studies Studies pending at discharge: no Laboratory Results Lipid Panel Test 02/26/17 05:25 Range/Units Triglycerides Level 91 0-150 mg/dl Cholesterol Level 93 0-200 mg/dl HDL Cholesterol 34 mg/dl Cholesterol/HDL Ratio 2.7 LDL Cholesterol, Calculated 41 mg/dl Medical Emergencies . Who to Call and When: Medical Emergencies: If at any time you feel your situation is an emergency, please call 911 immediately. . Non-Emergent Contact Non-Emergency issues call your: Primary Care Provider, [employer] Call Non-Emergent contact if: wound has increased drainage, wound has increased redness, wound has increased pain, you have any medication questions . . "Provider Documentation" section prepared by Valente Ferrara. . VTE Core Measure Inpt VTE Proph given/why not?: Other Anticoagulation (Heparin Drip)
--- NOTE | 2017-02-28 19:15 | Discharge Summary ---
Discharge Summary Date of Service Feb 28, 2017. Discharge Summary Admission Date: Feb 25, 2017 at 16:46 Discharge Date: Feb 27, 2017 Discharge Disposition: Home Principal Diagnosis: NSTEMI Secondary Diagnoses/Problems: Cough Hypertension Dyslipidemia Procedures: Cardia cath successful PCI Drug Eluting Stent ECHO Interpretation Summary * Name: DOMONIQUE RAMOS Study Date: 02/26/2017 06:35 AM BP: 115/67 mmHg * Patient Location: [facility]\\S\\[facility]\\S\\1 HR: 52 * : 1940 (M/d/yyyy) Gender: Male Height: 69 in * Age: 77 yrs Ethnicity: CA Weight: 205 lb * Ordering Physician: Grace Maradiaga * Referring Physician: UNKNOWN * Performed By: Nieves Duvall RCS * * Reason For Study: Chest Pain * BSA: 2.1 m2 * -- Conclusions -- * The left ventricle is normal in size. * Left ventricular systolic function is normal. * Ejection Fraction = 55-60%. * The right ventricular systolic function is normal. * The left atrium is mildly dilated. * The right atrium is mildly dilated. * Aortic valve sclerosis mild, without significant aortic valvular stenosis. Procedure Details * A complete two-dimensional transthoracic echocardiogram was performed (2D, M- mode, Doppler and color flow Doppler). Left Ventricle * The left ventricle is normal in size. * There is normal left ventricular wall thickness. * Left ventricular systolic function is normal. * Ejection Fraction = 55-60%. * The left ventricular wall motion is normal. Right Ventricle * The right ventricle is normal size. * The right ventricular systolic function is normal. Atria * The left atrium is mildly dilated. * The right atrium is mildly dilated. Mitral Valve * The mitral valve is normal in structure and function. Tricuspid Valve * The tricuspid valve is normal in structure and function. Aortic Valve * Aortic valve sclerosis mild, without significant aortic valvular stenosis. * There is no significant aortic regurgitation. Pulmonic Valve * The pulmonic valve is not well visualized. * Mild pulmonic valvular regurgitation. Great Vessels * The aortic root and proximal ascending aorta are normal sized. Pericardium/Pleural * There is no pericardial effusion. Consultations: Cardiology Medication Reconciliation Continued Medications: Aspirin (Aspirin Chewable) 81 Mg Chew 81 MG PO DAILY, TAB Atorvastatin (Lipitor) 40 Mg Tab 40 MG PO QAM for 30 Days, 6 Refills Clopidogrel Bisulfate (Plavix) 75 Mg Tab 75 MG PO QAM, #30 6 Refills Coenzyme Q10 (Ubidecarenone) (Co Q-10) 100 Mg Cap 100 MG PO DAILY Ergocalciferol (Vitamin D) 400 Inter.unit Tab 400 INTER.UNIT PO DAILY, TAB Lisinopril (Zestril) 5 Mg Tab 5 MG PO QAM, #30 6 Refills Multiple Vitamin (Multivitamin) 1 Tab Tab 1 TABLET PO DAILY, TAB Multiple Vitamins W/ Minerals (Vision Vitamins) 1 Tab Tab 1 TABLET PO DAILY Nitroglycerin (Nitrostat) 0.4 Mg Tab 0.4 MG SL UD PRN Admission Information HPI (per Admitting provider): Pt is 77 y/o M with PMHx CAD, STEMI s/p 2 stents placed to LAD in 2012, HTN, Hyperlipidemia, CVA, presents from transfer from [facility] ER with c/o CP. Pt reports hx anterior chest pressure and tightness x 2 weeks that he would wake up with and lasted approx 2-3 hours. States he would burp a lot and then felt like CP resolved.No prior self treatment attempted. Denies relation CP with eating or worsening CP with exertion. Today he states woke up with the CP again , and later in morning was helping with meals on wheels when pain increased to 6 -7 out of 10 on pain scale and was constant with associated diaphoresis. Reports this CP today feels like his previous MA and He called EMS and was transported to [facility]. Was given 4 baby ASA. Pt states during transport pain decreased to 3/10 on pain scale without further intervention. In ER it is reported EKG with ST depression in V2, V3, V4 and elevation in AVR. Negative Troponin. Vitals were stable with BP: 126/89, Pulse: 92, Temp: 98.4F, Resp: 20, Pulse ox:97%. CXR with no acute infiltrate or cardiomegaly. He was started on Heparin drip. Pt follows with [facility] cardiology group and was transferred here. Upon arrival here pt reports is CP free. Repeat troponin here is 6, EKG NSR rate 63 with 1st degree AV block, no significant ST elevation noted Pt does report 8 days ago started with stuffy nose and productive cough of yellow sputum. Last week tried OTC cold/flu medicine with minimal relief, hasn' t taken for 4 days. Denies fever/chills, SOB, hemoptysis. Pt was given Zithromax 500mg po at the ER. Sputum culture pending. Hx ECHO 05/2016 and EF:60-64%. Hx arterectomy LAD in 1993. Pt with hx bradycardia (HR 40's with 1st degree block) on metoprolol 12.5mg and metoprolol has been held since. Denies N/V/D/C, ADAMS, dizziness, syncope, vision changes, neck pain, neck stiffness, palpitations, sore throat, choking, otalgia, abdominal pain, paresthesias, weakness, extremity weakness, extremity edema, rashes, urinary symptoms. Physical Exam (per Admitting): General Appearance: WD/WN, no apparent distress (Pt pleasant and talkative) Head: normocephalic, atraumatic Eyes: normal inspection, PERRL, EOMI, sclerae normal (conjunctivae clear; lids normal) ENT: normal ENT inspection, hearing grossly normal, pharynx normal, + nasal congestion Neck: supple, no adenopathy, thyroid normal, no JVD, trachea midline Respiratory/Chest: chest non-tender, lungs clear, normal breath sounds, no respiratory distress, no accessory muscle use Cardiovascular: regular rate, rhythm, no edema, no murmur, normal peripheral pulses Abdomen/GI: normal bowel sounds, non tender, soft Back: normal inspection Extremities/Musculoskelatal: normal inspection, normal capillary refill, no pedal edema, normal range of motion Neurologic/Psych: study abroad advisor II-XII nml as tested, alert, normal mood/affect, oriented x 3 Skin: normal color, warm/dry, no rash Hospital Course NSTEMI Hx CAD s/p 2 bare metal stents placed to LAD in 2012, present with chest pain EKG showed no significant ST elevation Troponin on admission was 6.1 trending to 6.03 --> 4.04 On heparin drip Continue asa, plavix, statin No Beta 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 * Left ventricular systolic function is normal. * Ejection Fraction = 55-60%. * The right ventricular systolic function is normal. * The left atrium is mildly dilated. * The right atrium is mildly dilated. * Aortic valve sclerosis mild, without significant aortic valvular stenosis. Cough CXR at [facility] no acute infiltrate Afebrile, no leukocytosis No abx at this time Improved HTN continue lisinopril Monitor BP HYPERLIPIDEMIA LDL 41 on 03/03 Continue lipitor DVT PROPHYLAXIS Heprin drip CODE STATUS FULL CODE DISPOSITION discharge home today Total time spent on discharge = 35 minutes This includes examination of the patient, discharge planning, medication reconciliation, and communication with other providers. Discharge Instructions Discharge Instructions Date of Service Feb 27, 2017. Admission Reason for Admission: Chest Pain Discharge Discharge Diagnosis / Problem: NSTEMI, Cough, Hypertension Discharge Goals Goal(s): Decrease discomfort, Improve function, Improve disease control Activity Recommendations Activity Limitations: resume your previous activity . Instructions / Follow-Up Instructions / Follow-Up Follow up with your new primary care provider Dr. Whitley on 03/02 @ 1:05 pm Follow up appointment with cardiology Madhuri SHEPHERD next (already had appointment schedule) Continue Plavix and aspirin for at least 1 year. Please check the right groin area for any bleeding and swelling. Keep right groin area clean and dry when you are not showering. Do not use creams, lotions or ointment on the wound site. Do not strain during bowel movements for the first 3 to 4 days after the procedure to prevent bleeding from the catheter insertion site. Avoid heavy lifting (more than 10 pounds) and pushing or pulling heavy objects for the first 5 to 7 days after the procedure. Do not participate in strenuous activities for 5 days after the procedure. This includes most sports - jogging, golfing, play tennis, and bowling. You may climb stairs if needed, but walk up and down the stairs more slowly than usual. Gradually increase your activities until you reach your normal activity level within one week after the procedure. Current Hospital Diet Patient's current hospital diet: AHA Diet (Heart Healthy) Discharge Diet Recommended Diet: AHA Diet (Heart Healthy) Pending Studies Studies pending at discharge: no Laboratory Results Lipid Panel Test 02/26/17 05:25 Range/Units Triglycerides Level 91 0-150 mg/dl Cholesterol Level 93 0-200 mg/dl HDL Cholesterol 34 mg/dl Cholesterol/HDL Ratio 2.7 LDL Cholesterol, Calculated 41 mg/dl Medical Emergencies . Who to Call and When: Medical Emergencies: If at any time you feel your situation is an emergency, please call 911 immediately. . Non-Emergent Contact Non-Emergency issues call your: Primary Care Provider, Relay Tester Call Non-Emergent contact if: wound has increased drainage, wound has increased redness, wound has increased pain, you have any medication questions . . "Provider Documentation" section prepared by Valente Ferrara. . VTE Core Measure Inpt VTE Proph given/why not?: Other Anticoagulation (Heparin Drip) Additional Copies To Nilo Whitley D.O.
== END 2017-02-27 15:21 | disposition home or self-care (01) | DRG 247 ==
LOC: C.2T 16:46
PROVIDERS: ADMIT Hospitalist; ATTEND Hospitalist
PROC: B211YZZ Fluoroscopy of Multiple Coronary Arteries using Other Contrast (ICD-10-PCS; 2017-02-26)
PROC: 027035Z Dilation of Coronary Artery, One Artery with Two Drug-eluting Intraluminal Devices, Percutaneous Approach (ICD-10-PCS; principal; 2017-02-26 14:14)
DX: I21.4 Non-ST elevation (NSTEMI) myocardial infarction (principal); I25.10 Atherosclerotic heart disease of native coronary artery without angina pectoris; R05 Cough; I25.2 Old myocardial infarction; I10 Essential (primary) hypertension; E78.5 Hyperlipidemia, unspecified; Z79.02 Long term (current) use of antithrombotics/antiplatelets; Z79.82 Long term (current) use of aspirin; Z79.899 Other long term (current) drug therapy; Z95.5 Presence of coronary angioplasty implant and graft; Z86.73 Personal history of transient ischemic attack (TIA), and cerebral infarction without residual deficits; Z87.891 Personal history of nicotine dependence

== ENCOUNTER 2024-05-02 09:34 | Inpatient (IN) ==
--- NOTE | 2024-05-02 10:00 | Emergency Department Note ---
Impression & Plan Bradycardia, Dysrhythmia, AV heart block, Elevated troponin ED Provider Note NAME: DOMONIQUE RAMOS AGE: 84 SEX: M : 1940 ARRIVES VIA: Ambulance INFORMANT: [Patient] ED PROVIDER(S): [Galdino Herrera MD] CHIEF COMPLAINT: Cardiac assessment HISTORY OF PRESENT ILLNESS: The patient is an 84-year-old male who was at a scheduled cardiology appointment when he was found to be bradycardic. There was concern for conduction disease and he was sent to our hospital by ambulance. Patient admits to feeling fatigued lately but he is not short of breath, there has been no syncope, no chest pain. He does take metoprolol twice a day. Upon arrival, the patient was found to be quite bradycardic. I was called to see the patient in the room. At the time of my assessment, he denied complaints. PMHx/PSHx/Social Hx: See Below PHYSICAL EXAM: GENERAL: Patient is in no acute distress. HEENT: No acute trauma, normocephalic atraumatic, mucous membranes moist, no nasal congestion. NECK: No stridor, no adenopathy, no meningismus, trachea is midline. LUNGS: Clear to auscultation bilaterally, no wheeze, no rhonchi, breath sounds equal. HEART: Bradycardic with a somewhat irregular rhythm. ABDOMEN: Soft, nontender, no peritonitis. EXTREMITIES: No cyanosis, full range of motion of all the joints without pain or difficulty. NEUROLOGIC: Oriented x 3, no acute motor or sensory deficits, no focal weakness. SKIN: No jaundice, no diaphoresis. DIFFERENTIAL DIAGNOSIS: Conduction disease, AR, medication reaction, electrolyte imbalance, among others. EMERGENCY DEPARTMENT PROCEDURES: MEDICAL DECISION MAKING: There is no leukocytosis or concerning anemia. There is a normal platelet count. There is no coagulopathy. There is no significant electrolyte abnormality or renal failure. There were some subtle liver enzyme elevations. No evidence for pancreatitis. Patient appeared to be in a euthyroid state. Lyme disease testing was negative. ECG showed type II second-degree AV block at times and at times, third-degree AV block. There was some ventricular escape noted. Cardiac enzyme testing x 1 is slightly elevated, this could certainly be consistent with cardiac injury. Chest x-ray did not show CHF or pneumonia. On exam, the patient seemed asymptomatic from the bradycardia and heart block. I did speak with cardiology. The patient is being admitted to the hospital for pacemaker placement. Fortunately, the patient did not require pacing here in the ED, he did not require atropine or other measures to combat the lower rate/heart block. I spoke with the patient, he understands the need for a hospital stay. The on- call hospitalist was consulted. I spoke with case management. Prior/Outside records/notes reviewed: Today's outpatient cardiology notes describing his presentation, their concerns and the need for an ER referral. ECG per my interpretation: Indication was bradycardia. ECG shows what appears to be a sinus bradycardia with a type II second-degree AV block. The rate was 28. There was no ST elevation, no PVCs. The QTc was 317. Potential old septal infarct was seen. Repeat ECG per my interpretation: Indication was bradycardia. ECG shows what appears to be third-degree AV block there is a right bundle branch block, presumed ventricular escape. No acute ST elevation, no PVCs. QTc was 389. Compared to the previous ECG, the right bundle branch block is now present, third-degree block is now present. Continuous Cardiac Monitoring per my interpretation: An order was placed for continuous cardiac monitoring. The monitor shows a rate of 30 with third-degree AV block. Imaging/x-ray results per my interpretation: Chest x-ray did not show pneumonia or CHF. Chronic Medical/Social conditions affecting care: Advanced age. Care/Management discussed with: Cardiology-Dr. Palomo. Level of care consideration(s): After review of the information above and other included data: --I believe the patient requires escalation of care to admission Critical Care Note: I have personally spent 49 minutes of critical care time in the direct management of this patient. This includes bedside care, interpretation of diagnostic studies, and testing, discussion with consultants, patient, and family members, and other required patient management activities. This 49 minutes is in excess of all separately billable procedures. 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 PACs - mild frequency. PVCs - mild in frequency, with 141 isolated premature ventricular contractions, 8 ventricular couplets, 3 episodes of ventricular bigeminy, and 3 ventricular runs. Symptoms - none reported. Sinus bradycardia was noted with rates of 43 to 49 beats per minute during anticipated hours of sleep. No significant pauses were noted. No episodes of high-grade atrioventricular block noted." Carotid artery disease (Chronic 12/15/12) "01/29/15 carotid US- 50-69% stenosis MYKEL, less than 50% stenosis LICA" Chest pain Coronary artery disease with exertional angina Dyslipidemia (Chronic) S/P coronary artery stent placement (Chronic) "12/15/12, [facility], Dr. Shukla, 2 BMS to LAD" Medical History Coronary artery disease (12/15/12) "S/p coronary intervention in 1993 undergoing coronary atherectomy of the left anterior descending. S/p acute coronary intervention for STEMI December 15, 2012, receiving two overlapping bare metal stents to the mid LAD. Moderate residual disease of the coronaries up to 40% left main, distal disease to the circumflex right coronary artery. " Surgical History History of coronary artery stent placement Social History Smoking Status: Former smoker Tobacco Type: Cigarettes Second Hand Exposure: No; Do You Dip or Chew Tobacco: No; Tobacco Cessation Education Requested by Patient: No Hx Alcohol Use: No Hx Substance Use: No Preferred Language: Khmer Communication Ability: Effective Partner Integration Planner Required: No Beliefs That Will Affect Care: None Current Living Situation: Spouse Other Information That Helps Us Care for You: No Feels Safe at Home: Yes Safety Concerns: Feels Safe At This Time Allergies Allergies Allergy/AdvReac Type Severity Reaction Status Date / Time iodine Allergy Unknown Unknown Verified 05/02/24 11:02 povidone Allergy Unknown Unknown Verified 05/02/24 11:02 Home Meds Home Medications Medication Instructions Recorded Confirmed aspirin 81 mg chewable tablet 81 mg PO QAM #0 tabs 12/15/12 05/02/24 ascorbic acid (vitamin C) 500 mg 1,000 mg PO QDL 10/17/20 05/02/24 tablet (Vitamin C) atorvastatin 40 mg tablet 40 mg PO QAM 10/18/20 05/02/24 cholecalciferol (vitamin D3) 25 25 mcg PO QDL 10/18/20 05/02/24 mcg (1,000 unit) tablet (Vitamin D3) clopidogrel 75 mg tablet 75 mg PO QAM 10/18/20 05/02/24 coenzyme Q10 100 mg capsule 100 mg PO QDL 10/18/20 05/02/24 (CoQ-10) nitroglycerin 0.4 mg sublingual 0.4 mg sublingual Q5M PRN Chest 10/18/20 05/02/24 tablet Pain lisinopril 10 mg tablet 10 mg PO QAM 05/02/24 05/02/24 metoprolol tartrate 25 mg tablet 25 mg PO BID 05/02/24 05/02/24 vitamin E 268 mg (400 unit) capsule 268 mg PO QDL 05/02/24 05/02/24 vitamins A,C,H-ehbn-qsnzly 4,296 1 cap PO BID 05/02/24 05/02/24 mcg-226 mg-90 mg capsule (PreserVision AREDS) Results & Data (ED) Vital Signs Vital Signs - 24 hr 05/02/24 09:53 05/02/24 09:58 05/02/24 09:58 Temperature 36.9 C Temperature Source Oral Pulse Rate 30 L 60 Pulse Rate [Apical] Respiratory Rate 20 Respiratory Effort / Characteristics Non-Labored Respiratory Depth Normal Blood Pressure 162/84 H Blood Pressure [Right Arm] Blood Pressure Mean 110 Blood Pressure Mean [Right Arm] Blood Pressure Position [Right Arm] Pulse Oximetry 98 100 Oxygen Delivery Method Room Air Room Air Sepsis Recent Fever Within 48 Hours No Sepsis New/Unexplained Change in Mental Status No Sepsis Action Taken by Nursing No Action Required 05/02/24 10:08 05/02/24 10:08 Temperature Temperature Source Pulse Rate Pulse Rate [Apical] 29 L Respiratory Rate 20 Respiratory Effort / Characteristics Non-Labored Respiratory Depth Normal Blood Pressure Blood Pressure [Right Arm] 162/84 H Blood Pressure Mean Blood Pressure Mean [Right Arm] 110 Blood Pressure Position [Right Arm] Sitting Pulse Oximetry 100 96 Oxygen Delivery Method Room Air Room Air Sepsis Recent Fever Within 48 Hours Sepsis New/Unexplained Change in Mental Status Sepsis Action Taken by Longterm Medications Current Medication List: was personally reviewed by me Laboratory Data Attestation: I reviewed the patient's lab results. 05/02/24 09:45 05/02/24 09:45 Lab Results 05/02/24 05/02/24 Range/Units 09:45 09:51 WBC 9.69 (4.8-10.8) K/ul RBC 5.03 (4.70-6.10) M/uL Hgb 14.6 (14.0-18.0) g/dl POC Hgb 14.3 (14.0-18.0) g/dl Hct 43.0 (42.0-52.0) % POC Hct 42 (42-52) % MCV 85.5 (80.0-100.0) fL MCH 29.0 (25.0-34.0) pg MCHC 34.0 (32.0-36.0) g/dL RDW Std Deviation 43.8 (36.4-46.3) fL RDW Coeff of Katelynn 14.2 (11.5-14.5) % Plt Count 164 (130-400) K/uL MPV 10.2 (9.4-12.4) fL Immature Gran % (Auto) 0.4 % Neut % (Auto) 62.0 % Lymph % (Auto) 24.5 % Newberry % (Auto) 9.8 % Eos % (Auto) 2.7 % Baso % (Auto) 0.6 % Neut # (Auto) 6.01 (1.40-6.50) K/uL Lymph # (Auto) 2.37 (1.20-3.40) K/uL Newberry # (Auto) 0.95 H (0.11-0.59) K/uL Eos # (Auto) 0.26 (0.00-0.50) K/uL Baso # (Auto) 0.06 (0.00-0.20) K/uL Immature Gran # (Auto) 0.04 (0.01-0.20) K/uL PT 11.1 (9.0-12.0) Seconds INR 1.0 (0.9-1.1) APTT 23 (21-31) Seconds PTT Ratio 0.9 POC Sodium 141 (135-144) mmol/L Sodium 140 (136-145) mmol/L POC Potassium 3.9 (3.3-5.0) mmol/L Potassium 3.9 (3.5-5.1) mmol/L POC Chloride 108 (101-112) mmol/L Chloride 109 H (98-107) mmol/L Carbon Dioxide 22 (21-32) mmol/L POC Total CO2 21 L (24-31) mmol/L Anion Gap 9 (3-11) POC Anion Gap 17.0 (16-25) mmol/L POC BUN 14 (7-18) mg/dl BUN 15 (6-23) mg/dl Creatinine 0.76 (0.6-1.4) mg/dl POC Creatinine 0.9 (0.6-1.3) mg/dl Est Cr Clr Drug Dosing 79.8 ml/min eGFR 89.74 BUN/Creatinine Ratio 19.7 (10-20) Glucose 95 (70-99(Fasting)) mg/dl POC Glucose (other) 98 (70-99) mg/dl Calcium 9.3 (8.6-10.3) mg/dl POC Ioniz Calcium Shai 1.22 (1.12-1.32) mmol/l Magnesium 2.0 (1.7-2.4) mg/dl Total Bilirubin 1.2 H (0.2-1.0) mg/dl AST 20 (13-39) U/L ALT 13 (7-52) U/L Alkaline Phosphatase 109 H (34-104) U/L Troponin I High Sens 22.2 H (0-20) pg/ml Total Protein 6.8 (6.0-8.3) gm/dl Albumin 3.9 (3.4-5.0) gm/dl Globulin 2.9 (2.5-4.0) gm/dl Albumin/Globulin Ratio 1.3 (0.9-2) Lipase 35 (11-82) U/L TSH 1.798 (0.300-4.500) uIu/ml Lyme Disease Screen Negative (Negative) Administered Medications Sodium Chloride (Nss) 1,000 mls @ 50 mls/hr IV .Q20H ONE Stop: 05/03/24 07:41 Last Admin: 05/02/24 12:26 Dose: 50 mls/hr Documented By: AMAPRO Discontinued Medications Atropine Sulfate (Atropine So4 1 Mg/Ml 1ml Vial) Confirm Administered Dose 1 mg .ROUTE .STK-MED ONE Stop: 05/02/24 09:56 Last Admin: 05/02/24 11:13 Dose: Not Given Documented By: VISH Bupivacaine HCl (Bupivacaine 0.25% Pf 30 Ml Vial) Confirm Administered Dose 30 ml .ROUTE .STK-MED ONE Stop: 05/02/24 15:14 Last Admin: 05/02/24 16:21 Dose: 30 ml Documented By: MARTHA Cefazolin Sodium (Cefazolin 330 Mg/Ml 1 Gm Vial) Confirm Administered Dose 1,980 mg .ROUTE .STK-MED ONE Stop: 05/02/24 15:58 Last Admin: 05/02/24 16:22 Dose: 1,980 mg Documented By: CORI Diphenhydramine HCl (Diphenhydramine 50 Mg/Ml Vial) Confirm Administered Dose 50 mg .ROUTE .STK-MED ONE Stop: 05/02/24 16:04 Last Admin: 05/02/24 16:22 Dose: 50 mg Documented By: CORI Lidocaine HCl (Lidocaine 1% Local 20 Ml Vial) Confirm Administered Dose 20 ml .ROUTE .STK-MED ONE Stop: 05/02/24 15:14 Last Admin: 05/02/24 16:21 Dose: 20 ml Documented By: MARTHA Methylprednisolone (Methylprednisolone 125 Mg/2 Ml Vial) Confirm Administered Dose 125 mg .ROUTE .ST-MED ONE Stop: 05/02/24 16:04 Last Admin: 05/02/24 16:23 Dose: 125 mg Documented By: CORI Potassium Chloride (Potassium Chloride Crtab 20 Meq Tabcr) 20 meq PO ONE ONE Stop: 05/02/24 11:21 Last Admin: 05/02/24 12:26 Dose: 20 meq Documented By: AMPARO Sterile Water (Water, Sterile For Inj 10 Ml Vial) Confirm Administered Dose 10 ml .ROUTE .STK-MED ONE Stop: 05/02/24 15:14 Last Admin: 05/02/24 16:22 Dose: 10 ml Documented By: MARTHA Vancomycin HCl (Vancomycin Hcl 1000mg/20ml Vial) Confirm Administered Dose 50 mg .ROUTE .STinnocutis-MED ONE Stop: 05/02/24 15:14 Last Admin: 05/02/24 16:22 Dose: 50 mg Documented By: MARTHA Imaging Data Radiologist's Impression: Chest X-Ray 05/02/24 10:00 XR chest 1V portable HISTORY: 84 years-old Male Chest pain, nonspecific COMPARISON: 10/18/2020 TECHNIQUE: AP view of the chest FINDINGS: Cardiomediastinal and hilar silhouettes are unchanged. Median sternotomy. Mild chronic interstitial coarsening. No pneumothorax, large pleural effusion or lobar airspace consolidation. Bones appear grossly intact. IMPRESSION: Cardiomegaly without acute process. ACT 112: Negative or not required by law. The above report was generated using voice recognition software. It may contain grammatical, syntax or spelling errors. Electronically signed by: Guanako Rodriguez M.D. 05/02/2024 10:50 AM Discharge Plan Visit Data Chief Complaint: Cardiac Assessment Stated Complaint: CARDIAC ASSESSMENT, BRADYCARDIA ED Provider: Galdino Herrera Discharge Problem: Bradycardia, Dysrhythmia, AV heart block, Elevated troponin Patient Disposition: Admitted As Inpatient Condition: Serious Discharge Instructions Interventions: ED Discharge Assessment Last Done: 05/02/24 11:16 Discharge Problem: Dysrhythmia Qualifiers: Arrhythmia type: unspecified cardiac arrhythmia Qualified Code(s): I49.9 - Cardiac arrhythmia, unspecified
[2024-05-02 10:05] LABS: iSTAT Creatinine 0.9 mg/dl (0.6-1.3); iSTAT Hemoglobin 14.3 g/dl (14.0-18.0); iSTAT Ionized Calcium 1.22 mmol/l (1.12-1.32); iSTAT Potassium 3.9 mmol/L (3.3-5.0)
[2024-05-02 10:35] LABS: Basophils # (auto) 0.06 K/uL (0.00-0.20); Basophils % (auto) 0.6 %; Eosinophils # (auto) 0.26 K/uL (0.00-0.50); Eosinophils % (auto) 2.7 %; Hemoglobin 14.6 g/dl (14.0-18.0); Immature Granulocytes # (auto) 0.04 K/uL (0.01-0.20); Immature Granulocytes % (auto) 0.4 %; Lymphocytes # (auto) 2.37 K/uL (1.20-3.40); Lymphocytes % (auto) 24.5 %; Mean Corpuscular Volume 85.5 fL (80.0-100.0); Mean Platelet Volume 10.2 fL (9.4-12.4); Monocytes # (auto) 0.95 K/uL (0.11-0.59); Monocytes % (auto) 9.8 %; Neutrophils # (auto) 6.01 K/uL (1.40-6.50); Platelet Count 164 K/uL (130-400); RDW Coefficient of Variation 14.2 % (11.5-14.5); RDW Standard Deviation 43.8 fL (36.4-46.3); Red Blood Count 5.03 M/uL (4.70-6.10); White Blood Count 9.69 K/ul (4.8-10.8)
[2024-05-02 10:46] LABS: Albumin Globulin Ratio 1.3 (0.9-2); Albumin Level 3.9 gm/dl (3.4-5.0); BUN Creatinine Ratio 19.7 (10-20); Bilirubin,Total 1.2 mg/dl (0.2-1.0); Calcium 9.3 mg/dl (8.6-10.3); Creatinine Clr Calc Pharmacy 79.8 ml/min; Globulin 2.9 gm/dl (2.5-4.0); Potassium 3.9 mmol/L (3.5-5.1); Total Protein 6.8 gm/dl (6.0-8.3)
[2024-05-02 10:50] LABS: Troponin I High Sensitivity 22.2 pg/ml (0-20)
--- NOTE | 2024-05-02 10:51 | XRay Report ---
XR chest 1V portable HISTORY: 84 years-old Male Chest pain, nonspecific COMPARISON: 10/18/2020 TECHNIQUE: AP view of the chest FINDINGS: Cardiomediastinal and hilar silhouettes are unchanged. Median sternotomy. Mild chronic interstitial c oarsening. No pneumothorax, large pleural effusion or lobar airspace consolidation. Bones appear rosangela sly intact. IMPRESSION: Cardiomegaly without acute process. ACT 112: Negative or not required by law. The above report was generated using voice recognition software. It may contain grammatical, syntax o r spelling errors. Electronically signed by: Guanako Rodriguez M.D. 05/02/2024 10:50 AM
[2024-05-02 10:52] LABS: Partial Thromboplastin Ratio 0.9; Partial Thromboplastin Time 23 Seconds (21-31); Prothrombin Time 11.1 Seconds (9.0-12.0)
[2024-05-02 11:00] LABS: Thyroid Stimulating Hormone 1.798 uIu/ml (0.300-4.500)
[2024-05-02] MEDS: ATROPINE SO4 1 MG/ML 1ML VIAL ONE (11:13)
[2024-05-02] MEDS ORDERED: ACETAMINOPHEN 325 MG TAB PO PRN (11:42)
[2024-05-02] MEDS ORDERED: NITROGLYCERIN SL 0.4 MG/TAB TAB SL PRN (11:42)
[2024-05-02] MEDS ORDERED: POLYETHYLENE (MIRALAX) 17 GM PACK PO PRN (11:42)
[2024-05-02] MEDS ORDERED: PROMETHAZINE 6.25 MG/50.25 ML BAG IV PRN (11:42)
[2024-05-02] MEDS ORDERED: MAGNESIUM HYDROXIDE SUSP 30 ML UDC PO PRN (11:42)
--- NOTE | 2024-05-02 12:24 | History & Physical Report ---
Date of Service May 02, 2024 Assessment & Plan (1) Third degree AV block: (2) Elevated troponin: Plan Gaurav Ocampo is an 84-year-old male with past medical history significant for dyslipidemia, emphysema, HTN, bilateral carotid artery stenosis, cerebrovascular disease, history of CVA on DAPT, CAD s/p CABG x 3 in 2020, history of OR s/p stenting, bradycardia, paroxysmal atrial fibrillation, chewing tobacco use, history of cigarette use and history of renal calculi whom presented to the ED on 05/02/2024 via EMS after he was found to have a third-degree heart block on outpatient EKG with AV dissociation during a routine cardiology visit today with Madhuri Plaza PA-C at [facility]. Patient has been relatively asymptomatic recently except for some mild fatigue and intermittent "brain fog" which has been ongoing since this weekend. Upon arrival to the ED, he was found to be significantly bradycardic with a heart rate in the 20s however he remained completely asymptomatic. Telemetry in the ED revealed possible second-degree type II AV block with intermittent ventricular escape beats per discussion with the ED provider. No atropine was given in the ED; his heart rate slightly remained in the 30s-40s during our conversation in the ED. He denies any recent tick bites. He took his medications this morning, including his metoprolol tartrate 25mg which he takes twice a day. On-call resident in diagnostic radiology, Dr. Palomo, was made aware of this patient by the ED provider. Third-Degree AV Block, Elevated Troponin: History as per above and HPI. CXR unremarkable. Lab work personally reviewed and rather unremarkable except for elevated initial troponin of 22.2 and repeat troponin of 20.4; EKG revealed sinus bradycardia with second-degree AV block with 2:1 AV conduction. Troponin likely elevated secondary to demand ischemia however will continue to trend Q6H - less likely ACS. TSH WNL, Lyme disease screen negative. Cardiology consult pending. Patient made NPO in anticipation for possible cardiac pacemaker placement. Hold home metoprolol tartrate. Check resting echocardiogram. Pacer pads at bedside. Hold home Plavix, continue ASA for now. Can consider adding on PRN IV atropine if patient were to become symptomatic. Monitor closely on telemetry. Other Chronic Medical Conditions: * HTN - BP stable, slightly hypertensive. Can resume home lisinopril for now. * HLD/CAD - Continue atorvastatin, ASA. Plavix on hold for now as per above. DVT Prophylaxis: SCDs/TEDs for now ISO anticipated cardiac pacemaker insertion. Code Status: FULL CODE PCP: Nilo Whitley DO Disposition: Admit to PCU/Telemetry for close cardiac monitoring. Patient seen in collaboration with Dr. Pack. Please see addendum. I spent a total of 55 minutes coordinating, documenting, and providing care for this patient excluding time spent in the performance of separately billed services. This included personally reviewing all current laboratories and imaging studies, medical reconciliation, outpatient chart review and discussion with specialists. This chart was completed in part utilizing Speech Voice Recognition Software. Grammatical errors, random word insertions, pronoun errors, and incomplete sentences are an occasional consequence of this system due to software limitations, ambient noise, and hardware issues. Any formal questions or concerns about the content, text, or information contained within the body of this dictation should be directly addressed to the provider for clarification. Admission and Anticipated Discharge Date Admission Date: May 02, 2024 History of Present Illness Chief Complaint: Referred by Cardiology: 3rd Degree Heart Block Primary Care Provider: Nilo Whitley DO Gaurav Ocampo is an 84-year-old male with past medical history significant for dyslipidemia, emphysema, HTN, bilateral carotid artery stenosis, cerebrovascular disease, history of CVA on Plavix, CAD s/p CABG x 3 in 2020, history of OR s/p stenting, bradycardia, paroxysmal atrial fibrillation, chewing tobacco use, history of cigarette use and history of renal calculi whom presented to the ED on 05/02/2024 via EMS after he was found to have a third degree heart block on outpatient EKG with AV dissociation during a routine cardiology visit with Madhuri Plaza PA-C at [facility]. History obtained from patient, family at bedside and associated chart review. Patient has been relatively asymptomatic recently except for some mild fatigue and intermittent "brain fog" which has been ongoing since this weekend. Denies any recent chest pain, shortness of breath, palpitations or syncopal events. Upon arrival to the ED, he was found to be significantly bradycardic with a heart rate in the 20s however he remained completely asymptomatic. Telemetry in the ED revealed possible second-degree type II AV block with intermittent ventricular escape beats per discussion with the ED provider. His heart rate remained in the 30s to 40s throughout our conversation in the ED and telemetry was consistent with second-degree type II AV block with intermittent ventricular escape beats. He did endorse some occasional dizziness when rising quickly from a stooped position - a symptom he has experienced for most of his life per his . He denies any recent tick bites. He took his medications this morning, including his metoprolol tartrate 25mg which he takes twice a day. He denies any recent cough, fever, chills or increased lower extremity edema. On-call resident in diagnostic radiology, Dr. Palomo, was made aware of this patient by the ED provider. Instructed to keep the patient NPO in anticipation for cardiac pacemaker placement. Allergies Allergy/AdvReac Type Severity Reaction Status Date / Time iodine Allergy Unknown Unknown Verified 05/02/24 11:02 povidone Allergy Unknown Unknown Verified 05/02/24 11:02 Home Medications Medication Instructions Recorded Confirmed Type aspirin 81 mg chewable tablet 81 mg PO QAM #0 tabs 12/15/12 05/02/24 History ascorbic acid (vitamin C) 500 mg 1,000 mg PO QDL 10/17/20 05/02/24 History tablet (Vitamin C) atorvastatin 40 mg tablet 40 mg PO QAM 10/18/20 05/02/24 History cholecalciferol (vitamin D3) 25 25 mcg PO QDL 10/18/20 05/02/24 History mcg (1,000 unit) tablet (Vitamin D3) clopidogrel 75 mg tablet 75 mg PO QAM 10/18/20 05/02/24 History coenzyme Q10 100 mg capsule 100 mg PO QDL 10/18/20 05/02/24 History (CoQ-10) nitroglycerin 0.4 mg sublingual 0.4 mg sublingual Q5M PRN Chest 10/18/20 05/02/24 History tablet Pain lisinopril 10 mg tablet 10 mg PO QAM 05/02/24 05/02/24 History metoprolol tartrate 25 mg tablet 25 mg PO BID 05/02/24 05/02/24 History vitamin E 268 mg (400 unit) capsule 268 mg PO QDL 05/02/24 05/02/24 History vitamins A,C,J-aytx-milmia 4,296 1 cap PO BID 05/02/24 05/02/24 History mcg-226 mg-90 mg capsule (PreserVision AREDS) Past Med/Surg History Problem List Elevated troponin Third degree AV block S/P CABG x 3 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 S/p acute coronary intervention for STEMI December 15, 2012, receiving two overlapping bare metal stents to the mid LAD. Moderate residual disease of the coronaries up to 40% left main, distal disease to the circumflex right coronary artery. " History of TIA (transient ischemic attack) (Chronic) "1995, negative workup, transient numbness" HTN (hypertension) (Chronic) History of bradycardia (Chronic) "Holter monitor 06/16/16- dominant rhythm - sinus rhythm with first-degree AV block. PACs - mild frequency. PVCs - mild in frequency, with 141 isolated premature ventricular contractions, 8 ventricular couplets, 3 episodes of ventricular bigeminy, and 3 ventricular runs. Symptoms - none reported. Sinus bradycardia was noted with rates of 43 to 49 beats per minute during anticipated hours of sleep. No significant pauses were noted. No episodes of high-grade atrioventricular block noted." Carotid artery disease (Chronic 12/15/12) "01/29/15 carotid US- 50-69% stenosis MYKEL, less than 50% stenosis LICA" Chest pain Coronary artery disease with exertional angina Dyslipidemia (Chronic) S/P coronary artery stent placement (Chronic) "12/15/12, [facility], Dr. Shukla, 2 BMS to LAD" Surgical History History of coronary artery stent placement Social History Smoking Status: Former smoker Tobacco Type: Cigarettes Second Hand Exposure: No; Do You Dip or Chew Tobacco: No; Tobacco Cessation Education Requested by Patient: No Hx Alcohol Use: No Hx Substance Use: No Preferred Language: Citizen Of [place] Communication Ability: Effective Knock Up Assembler Required: No Beliefs That Will Affect Care: None Current Living Situation: Spouse Other Information That Helps Us Care for You: No Feels Safe at Home: Yes Safety Concerns: Feels Safe At This Time Review of Systems Review of Systems: At least ten systems reviewed and negative, except as noted in the HPI. Physical Exam Physical Exam: General: WD/WN, vitals as above, NAD, sitting up in bed, pleasant, family at bedside. A+Ox3, euthymic affect. HEENT: Normocephalic, atraumatic. Conjunctivae normal. External ear and nose normal, oropharynx slightly dry. Respiratory: Normal respiratory effort, lungs clear to auscultation, no wheeze/rales/rhonchi. No accessory muscle use. Cardiovascular: Bradycardic rate, somewhat irregular rhythm, normal peripheral pulses, trace BLE edema. Vessels: No JVD. Abdomen/GI: Normal bowel sounds, soft, nondistended, nontender to palpation in all quadrants. Extremities/Musculoskeletal: No cyanosis or clubbing, extremities motor strength intact, moves all extremities. Neurologic: No overt focal deficits, CN's II-XI not formally tested but appear grossly intact bilaterally. Skin: No rashes, normal color, warm/dry. Results & Data Results & Data Vital Signs (Past 12 Hours) Vital Signs Temp Pulse Pulse Resp BP BP Pulse Ox 05/02/24 11:46 36.4 C L 53 L 16 188/82 H 96 05/02/24 11:42 36.4 C L 53 L 15 188/82 H 96 05/02/24 11:16 47 L 20 186/93 H 97 05/02/24 10:53 47 L 20 165/78 H 96 05/02/24 10:53 96 05/02/24 10:08 96 05/02/24 10:08 29 L 20 162/84 H 100 05/02/24 09:58 100 05/02/24 09:58 36.9 C 60 20 162/84 H 98 05/02/24 09:53 30 L O2 Del Method 05/02/24 11:46 Room Air 05/02/24 11:42 Room Air 05/02/24 11:16 Room Air 05/02/24 10:53 Room Air 05/02/24 10:53 Room Air 05/02/24 10:08 Room Air 05/02/24 10:08 Room Air 05/02/24 09:58 Room Air 05/02/24 09:58 Room Air 05/02/24 09:53 Laboratory Results Short CBC 05/02/24 Range/Units 09:45 WBC 9.69 (4.8-10.8) K/ul Hgb 14.6 (14.0-18.0) g/dl Hct 43.0 (42.0-52.0) % Plt Count 164 (130-400) K/uL BMP 05/02/24 09:45 Sodium 140 Potassium 3.9 Chloride 109 H Carbon Dioxide 22 BUN 15 Creatinine 0.76 Glucose 95 Calcium 9.3 Liver Function 05/02/24 Range/Units 09:45 Total Bilirubin 1.2 H (0.2-1.0) mg/dl AST 20 (13-39) U/L ALT 13 (7-52) U/L Alkaline Phosphatase 109 H (34-104) U/L Albumin 3.9 (3.4-5.0) gm/dl Diagnostic Findings Chest X-Ray 05/02/24 10:00 XR chest 1V portable HISTORY: 84 years-old Male Chest pain, nonspecific COMPARISON: 10/18/2020 TECHNIQUE: AP view of the chest FINDINGS: Cardiomediastinal and hilar silhouettes are unchanged. Median sternotomy. Mild chronic interstitial coarsening. No pneumothorax, large pleural effusion or lobar airspace consolidation. Bones appear grossly intact. IMPRESSION: Cardiomegaly without acute process. ACT 112: Negative or not required by law. The above report was generated using voice recognition software. It may contain grammatical, syntax or spelling errors. Electronically signed by: Guanako Rodriguez M.D. 05/02/2024 10:50 AM Medications Administered Sodium Chloride (Nss) 1,000 mls @ 50 mls/hr IV .Q20H ONE Stop: 05/03/24 07:41 Last Admin: 05/02/24 12:26 Dose: 50 mls/hr Documented By: [facility] Discontinued Medications Atropine Sulfate (Atropine So4 1 Mg/Ml 1ml Vial) Confirm Administered Dose 1 mg .ROUTE .STK-MED ONE Stop: 05/02/24 09:56 Last Admin: 05/02/24 11:13 Dose: Not Given Documented By: ES Potassium Chloride (Potassium Chloride Crtab 20 Meq Tabcr) 20 meq PO ONE ONE Stop: 05/02/24 11:21 Last Admin: 05/02/24 12:26 Dose: 20 meq Documented By: [facility] Code Status & VTE Plan Code Status FULL CODE VTE Prophylaxis Plan VTE Prophylaxis will be ordered: Yes Supervising Physician Co-Signing Physician Notes Patient is an 84-year-old male with history of coronary artery disease s/p stent, TIA, hypertension, nephrolithiasis, hyperlipidemia, CVA, S/P CABG, paroxysmal atrial fibrillation and other medical problems presents for evaluation after recommendations from his primary resident in diagnostic radiology for third-degree AV block which was noted on an EKG as outpatient. Patient reports feeling " fogginess" since Thursday but otherwise denies any dyspnea, dizziness, nausea, diaphoresis, chest pain, palpitations, fever, chills, syncopal episode. He also denies recent tick bite, accidental overdosing on his metoprolol. Please review HPI for complete details of presentation. I personally reviewed blood work and imaging studies. Blood work fairly within normal limits. Mild troponin elevation to 0.2. TSH normal. Potassium 3.9, magnesium 2.0. Chest x-ray showed cardiomegaly without acute process. EKG showed sinus bradycardia with high degree AV block. VT 536, QTc 441. Physical Exam: Vitals signs as noted above General Appearance:Moderately built and nourished, no apparent distress Head: normocephalic, Atraumatic Eyes: normal inspection, EOMI Neck: supple, Trachea midline Respiratory/Chest: Normal breath sounds, CTA, No accessory muscle use Cardiovascular: S1, S2, No murmur, bradycardia Abdomen/GI:Soft, Non tender, Bowel sounds present Extremities/Musculoskeletal:normal inspection, trace pedal edema Neurologic/Psych:AAOX3, grossly no focal neurological deficits Skin: normal color, warm Third-degree AV block Lyme screen negative Normal TSH Chest x-ray showed no acute process Mild troponin elevation, less likely ACS Hold metoprolol Check resting echo Avoid AV nacho blocking agents Pacer pads at bedside N.p.o. for now for possible pacemaker placement today Cardiology consulted Consider adding atropine as needed if patient becomes symptomatic Monitor and replete electrolytes as needed Will hold Plavix and continue aspirin for now Monitor on telemetry I personally interviewed and examined at bedside. Patient's care is coordinated with Dunkleberger, Lucy PA-C. I have reviewed the advanced practitioner's documentation, and I agree with plan of care. Please refer to the documentation above for details of patient's presentation and for discussion of other issues. I spent a total [id number] coordinating, documenting, and providing care for this patient excluding time spent in the performance of separately billed services.
[2024-05-02] MEDS: SODIUM CHLORIDE 0.9% 1,000 ML IV ONE (12:26)
[2024-05-02] MEDS: POTASSIUM CHLORIDE CRTAB 20 MEQ TABCR PO ONE (12:26)
--- NOTE | 2024-05-02 12:50 | Cardiology Consultation ---
Date of Consultation May 02, 2024 Assessment & Plan (1) Intermittent complete heart block: (2) Mobitz type 2 second degree atrioventricular block: (3) HTN (hypertension): (4) S/P CABG x 3: Plan 84-year-old male with intermittent complete heart block and A-V dissociation. No significant symptoms reported. Dual-chamber pacemaker implantation indicated. Risk, benefits, alternatives to procedure discussed. Patient agreeable to proceed. Metoprolol discontinued. TSH and Lyme screen within normal limits. Baseline renal function and electrolytes stable. Transcutaneous pacer pads in place. Hypertensive since admission. Will require titration of LATONYA inhibitor and/or addition of calcium channel марина therapy post device implantation. History of Present Illness Reason for Consultation: Complete heart block Requesting Physician: Hannah Ayala PA-C Attending Physician: Aidan Pack MD History of Present Illness 84-year-old male present to the outpatient clinic earlier today for routine follow-up. Bradycardia noted on exam prompting ECG demonstrating complete heart block. Patient referred to the emergency department for further evaluation. Notes mild fatigue "head feeling fuzzy" over the past few weeks. Denies light headedness, dizziness, syncope, or near syncope. Currently resting comfortably. Sinus rhythm first-degree AV block noted on telemetry. Transcutaneous pacer pads in place. Denies chest pain or shortness of breath. No recent orthopnea, PND, or lower extremity edema. Family present at bedside. Offers no additional concerns/complaints. Cardiac history: 1. Coronary artery disease with severe coronary heart disease of the distal left main, proximal LAD and left circumflex. He was subsequently admitted to [facility] and underwent CABG x3 with EGAN to LAD, SVG to OM and PDA on 10/22/2020 2. Paroxysmal atrial fibrillation in the post op setting without recurrence. 3. Hypertension 4. History of CVA on plavix 5. B/L carotid vascular disease - follows with Vascular surgery 6. Dyslipidemia Allergies Allergy/AdvReac Type Severity Reaction Status Date / Time iodine Allergy Unknown Unknown Verified 05/02/24 11:02 povidone Allergy Unknown Unknown Verified 05/02/24 11:02 Home Medications Medication Instructions Recorded Confirmed Type aspirin 81 mg chewable tablet 81 mg PO QAM #0 tabs 12/15/12 05/02/24 History ascorbic acid (vitamin C) 500 mg 1,000 mg PO QDL 10/17/20 05/02/24 History tablet (Vitamin C) atorvastatin 40 mg tablet 40 mg PO QAM 10/18/20 05/02/24 History cholecalciferol (vitamin D3) 25 25 mcg PO QDL 10/18/20 05/02/24 History mcg (1,000 unit) tablet (Vitamin D3) clopidogrel 75 mg tablet 75 mg PO QAM 10/18/20 05/02/24 History coenzyme Q10 100 mg capsule 100 mg PO QDL 10/18/20 05/02/24 History (CoQ-10) nitroglycerin 0.4 mg sublingual 0.4 mg sublingual Q5M PRN Chest 10/18/20 05/02/24 History tablet Pain lisinopril 10 mg tablet 10 mg PO QAM 05/02/24 05/02/24 History metoprolol tartrate 25 mg tablet 25 mg PO BID 05/02/24 05/02/24 History vitamin E 268 mg (400 unit) capsule 268 mg PO QDL 05/02/24 05/02/24 History vitamins A,C,F-osdk-woxmeg 4,296 1 cap PO BID 05/02/24 05/02/24 History mcg-226 mg-90 mg capsule (PreserVision AREDS) Patient History Surgical History History of coronary artery stent placement Social History Smoking Status: Former smoker Tobacco Type: Cigarettes Second Hand Exposure: No; Do You Dip or Chew Tobacco: No; Tobacco Cessation Education Requested by Patient: No Hx Alcohol Use: No Hx Substance Use: No Preferred Language: Macedonian Communication Ability: Effective Sports Development Officer Required: No Beliefs That Will Affect Care: None Current Living Situation: Spouse Other Information That Helps Us Care for You: No Feels Safe at Home: Yes Safety Concerns: Feels Safe At This Time Review of Systems Review of Systems: All systems reviewed & are unremarkable except as noted in Subjective Physical Exam Constitutional: well nourished; no acute distress Respiratory: no respiratory distress, no labored breathing and no retractions Auscultation: lungs clear to auscultation bilaterally; no crackles, no rales, no rhonchi and no wheezes Cardiovascular: Rate/Rhythm: regular rate, regular rhythm and + bradycardic Heart Sounds: normal S1, normal S2 and + murmur (1/6Systolic ejection murmur) Vessels: radial pulses present; no JVD Extremities: no edema Gastrointestinal (Abdomen): Inspection/Auscultation: abdomen normal to inspection and normal bowel sounds; abdomen not distended Percussion/Palpation: abdomen soft; abdomen nontender, no guarding and abdomen not rigid Neurologic: CN's II-XI intact bilaterally and moves all extremities; no focal motor deficits Results & Data Vital Signs (Past 12 Hours) Vital Signs Temp Pulse Pulse Resp BP BP Pulse Ox 05/02/24 11:46 36.4 C L 53 L 16 188/82 H 96 05/02/24 11:42 36.4 C L 53 L 15 188/82 H 96 05/02/24 11:16 47 L 20 186/93 H 97 05/02/24 10:53 47 L 20 165/78 H 96 05/02/24 10:53 96 05/02/24 10:08 96 05/02/24 10:08 29 L 20 162/84 H 100 05/02/24 09:58 100 05/02/24 09:58 36.9 C 60 20 162/84 H 98 05/02/24 09:53 30 L O2 Del Method 05/02/24 11:46 Room Air 05/02/24 11:42 Room Air 05/02/24 11:16 Room Air 05/02/24 10:53 Room Air 05/02/24 10:53 Room Air 05/02/24 10:08 Room Air 05/02/24 10:08 Room Air 05/02/24 09:58 Room Air 05/02/24 09:58 Room Air 05/02/24 09:53 Laboratory Results Cardiac Enzymes 05/02/24 Range/Units 09:45 AST 20 (13-39) U/L Troponin I High Sens 22.2 H (0-20) pg/ml Coagulation 05/02/24 Range/Units 09:45 PT 11.1 (9.0-12.0) Seconds APTT 23 (21-31) Seconds CBC 05/02/24 Range/Units 09:45 WBC 9.69 (4.8-10.8) K/ul RBC 5.03 (4.70-6.10) M/uL Hgb 14.6 (14.0-18.0) g/dl Hct 43.0 (42.0-52.0) % Plt Count 164 (130-400) K/uL Neut # (Auto) 6.01 (1.40-6.50) K/uL Lymph # (Auto) 2.37 (1.20-3.40) K/uL Levy # (Auto) 0.95 H (0.11-0.59) K/uL Eos # (Auto) 0.26 (0.00-0.50) K/uL Baso # (Auto) 0.06 (0.00-0.20) K/uL Comprehensive Metabolic Panel 05/02/24 Range/Units 09:45 Sodium 140 (136-145) mmol/L Potassium 3.9 (3.5-5.1) mmol/L Chloride 109 H (98-107) mmol/L Carbon Dioxide 22 (21-32) mmol/L BUN 15 (6-23) mg/dl Creatinine 0.76 (0.6-1.4) mg/dl Glucose 95 (70-99(Fasting)) mg/dl Calcium 9.3 (8.6-10.3) mg/dl AST 20 (13-39) U/L ALT 13 (7-52) U/L Alkaline Phosphatase 109 H (34-104) U/L Total Protein 6.8 (6.0-8.3) gm/dl Albumin 3.9 (3.4-5.0) gm/dl Intake and Output 05/01/24 05/02/24 05/02/24 22:59 06:59 14:59 Other: Weight 91.626 kg Weight Measurement Method Standing Scale Patient Weight 05/03/24 06:59 Weight 91.626 kg (3) HTN (hypertension) Hypertension type: primary hypertension Qualified Code(s): I10 - Essential (primary) hypertension
--- OUTSIDE RECORDS SUMMARY | 2024-05-02 12:53 | External Medical Summary | Summary of Care ---
Author Name Unknown Organization [facility] Address [address] [place] [address] Phone [phone] Care Team Providers Care Occupational Health Technician Name Role Phone Nilo Whitley DO Primary Care Provider [phone] Reason for Visit * Reason Onset Date Comments Health Maintenance 04/18/2024 Encounter Details Date Type Department Care Team (Late st Contact Info) Description 04/18/2024 Telephone Family Practice [facility] [address] [place] [address] Nilo Whitley DO [address] [place] [address] Health Maintenance Allergies Active Allergy Reactions Criticality Noted Date Comments Iodine Rash Low 08/08/2002 documented as of this encounter (statuses as of 04/18/2024) Medications ASPIRIN EC LOW STRENGTH TBEC 81 MG OR Take 1 Tablet by mouth in the morning. 34 11 3 Active VISION VITAMINS PO TABS 1 TABLET DAILY 0 6 Active VITAMIN D 400 UNITS PO TABS take 1 tablet by mouth daily 3 Active COENZYME Q-10 100 MG PO CAPS 1 tablet daily Active vitamin c (ASCORBIC ACID) 500 MG Tablet Take 2 Tablets by mouth in the morning. Active Nitroglycerin 0.4 MG Sublingual Tablet Sublingual (Nitrostat) Place 1 Tablet under the tongue every 5 minutes as needed for Pain, Chest. 1 Active Cyanocobalamin 500 MCG Oral Tablet Take 1 Tablet by mouth in the morning. 1 Active Vitamin E 45 MG (100 UNIT) Oral Capsule Take by mouth daily . Active Zinc 50 MG Oral Tablet Take 1 Tablet by mouth in the morning. Active Lisinopril 10 MG Oral Tablet (Prinivil)Indicatio ns:HTN, goal below 140/90 take 1 tablet by mouth every morning 90 Tablet 3 4 Active Atorvastatin Calcium 40 MG Oral Tablet (Lipitor)Indication s:ASCVD (arteriosclerotic cardiovascular disease),Dyslipidem ia, goal LDL below 70 take 1 tablet by mouth every morning 90 Tablet 1 4 Active Clopidogrel Bisulfate 75 MG Oral Tablet (pLAVix)Indications :Cerebrovascular disease, arteriosclerotic, post-stroke,S/P coronary artery stent placement take 1 tablet by mouth every morning 90 Tablet 1 4 Active Metoprolol Tartrate 25 MG Oral Tablet (Lopressor)Indicati ons:HTN, goal below 140/90,ASCVD (arteriosclerotic cardiovascular disease),S/P coronary artery stent placement,S/P CABG x 3,Paroxysmal atrial fibrillation (HCC) take 1 tablet by mouth every 12 hours 180 Tablet 4 Active documented as of this encounter (statuses as of 04/18/2024) Active Problems Problem Noted Date Diagnosed Date Atherosclerosis of [place] co ronary artery of [place] heart without angina pectoris 06/29/2023 Paroxysmal atrial fibrillation 11/01/2021 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 CEREBROVASCULAR DZ, POST-STROKE 12/14/2008 Overview (12/14/2008): Modified per CVA protocol #8. ministroke negative workup, transient numbness CAROTID STENOSIS, NON-SYMPTOMATIC 11/02/2008 Overview (11/02/2008): Modified per Carotid Stenosis protocol #10 HTN, goal below 140/90 08/06/2002 documented as of this encounter (statuses as of 04/18/2024) Resolved Problems Problem Noted Date Diagnosed Date Resolved Date COPD, group A, by GOLD 2017 classification 01/28/2021 06/29/2023 Overview: Per COPD GOLD Classification Multiple vessel coronary artery disease 10/18/2020 11/01/2021 Unstable angina 10/18/2020 05/13/2022 Chronic obstructive pulmonary disease 06/18/2018 12/16/2018 NSTEMI (non-ST elevation billy cardial infarction) 03/05/2017 12/11/2017 Acute conjunctivitis 05/14/2013 018 Stomatitis 05/14/2013 12/11/2017 Viral infection 05/14/2013 12/11/2017 CEREBROVASCULAR DZ, POST-STROKE 11/02/2008 12/14/2008 Overview (12/14/2008): Modified per CVA protocol #8. ministroke negative workup, transient numbness Carotid Stenosis, non-symptomatic 07/12/2008 11/02/2008 Overview (11/02/2008): Modified per Carotid Stenosis protocol #10 ADVANCE DIRECTIVE INFORMATION 09/24/2004 03/21/2024 Overview (09/24/2004): No, Advance Directive brochure given to patient at prior appointment. CAD (coronary artery disease) 08/06/2002 10/30/2021 Overview (10/30/2021): More specified condition noted on pl with angina Mixed dyslipidemia 08/06/2002 Overview (04/26/2009): Per Lipid Taxonomy. Cerebrovascular event, ill-d efined, within last 8 weeks 07/14/1995 11/02/2008 Overview (11/02/2008): Modified per CVA protocol #8 Calculus of kidney 0 documented as of this encounter (statuses as of 04/18/2024) Immunizations Name Administration Dates Next Due COVID-19 mRNA, LNP-s, No Pre serve, 2-Dose Series (Moderna) 09/12/2020,08/15/2020 COVID-19, mRNA, LNP-s, PF, B ooster, 100mcg/0.5mg (Moderna) 04/23/2021 Pneumococcal Conjugate Vacc, 13 Valent (Prevnar) 06/08/2017 Pneumococcal Polysaccharide PPV23 (Pneumovax) TD, Preservative Free 07/06/2008 TDAP (age 10 and older)(Boostrix) 06/18/2018 documented as of this encounter Social History Tobacco Use Types Packs/Day Years Used Date Smoking Tobacco: Former Cigarettes 1 20 0 05/18/1959 - 05/18/1979 Smokeless Tobacco: Current Snuff Comments:01/13/2024 1 1/2 can s per week declined pamphlet Alcohol Use Standard Drinks/Week Comments No 0 (1 standard drink = 0.6 oz pur e alcohol) PHQ-2 Answer Date Recorded PHQ Adult Total Score 0 02/24/2022 Hunger Vital Sign Answer Date Recorded Within the past 12 months, y ou worried that your food would run out before you got the money to buy more. Never true 01/09/20 24 Within the past 12 months, t he food you bought just didn't last and you didn't have money to get more. Never true 01/09/2024 Childcare Answer Date Recorded Do you feel overwhelmed with taking care of a child, family member or friend? No 01/09/2024 Does your family need help f inding childcare? (Household - for ages 0-17 years) Not on file 01/09/2024 Clothing Answer Date Recorded Have you been unable to get clothing when it was really needed? No 01/09/2024 Is your family able to get c lothes or diapers when needed? (Household - for ages 0-17 years) Not on file 01/09/2024 Personal Safety Answer Date Recorded Do you feel unsafe or have concerns for your saf ety? No 01/09/2024 Do you have concerns for you r family's safety? (Household - for ages 0-17 years) Not on file 01/09/2024 Utilities Answer Date Recorded Do you have trouble paying y our heating, water, or electric bill? No 01/09/2024 Is your family able to pay t he heat, water, or electric bill? (Household - for ages 0-17 years) Not on file 01/09/2024 Does your family have access to good internet? (Household - for ages 0-17 years) Not on file 01/09/2024 Employment Status Answer Date Recorded Are you unemployed or without regular income? No 01/09/2024 Does the household have a re gular source of income? (Household - for ages 0-17 years) Not on file 01/09/2024 Social Connections Answer Date Recorded How often do you feel lonely or isolated from th ose around you? Never 01/09/2024 Financial Resource Strain Answer Date R ecorded Do you have any trouble payi ng for your medications, or do you think you might in the future? No 01/09/2024 Does your family have troubl e paying for medicine? (Household - for ages 0-17 years) Not on file 01/09/2024 Transportation Needs Answer Date Record ed Do you have trouble getting a ride to medical visits or work? (Adult - for ages 18 years and over) Not on file 01/09/2024 Does your family have a hard time getting a ride to doctors visits? (Household - for ages 0-17 years) Not on file 01/09/2024 Has lack of transportation k ept you from medical appointments, meetings, work, or from getting things needed for daily living? Check all that apply. No 01/09/2024 Do you (or your family) have trouble finding or paying for a ride (transportation)? (Household - for ages 0-17 years) Not on file 01/09/2024 Housing Stability Answer Date Recorded Do you currently live in a s helter or have no steady place to sleep at night? No 01/09/2024 Do you think you are at risk of becoming homeless? (Adult - for ages 18 years and over) Not on file 01/09/2024 Does your family worry about paying for your home or becoming homeless? (Household - for ages 0-17 years) Not on file 0 01/09/2024 Are you homeless or worried that you might be in the future? No 01/09/2024 Are you (or your family) neha eless or worried that you might be in the future? (Household - for ages 0-17 years) Not on file Food Insecurity Answer Date Recorded Do you need food for this week? No 01/09/2024 Are you able to get enough f ood for your family? (Household - for ages 0-17 years) Not on file 01/09/2024 Does your family need food t his week? (Household - for ages 0-17 years) Not on file 01/09/2024 Do you always have enough fo od for your family? 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 Answer Date of Assessment Author No 10/18/2020 6:57 PM EDT Clyde Lopez RN * Are you blind or do you have serious difficulty seeing, even when wearing glasses? Answer Date of Assessment Author No 10/18/2020 6:57 PM PRUDENCIOT Clyde Lopez RN * Do you have serious difficulty walking or climbing stairs? (5 years old or older) Answer Date of Assessment Author Yes 10/18/2020 6:57 PM PRUDENCIOT Clyde Lopez RN * Do you have difficulty dressing or bathing? (5 years old or older) Answer Date of Assessment Author No 10/18/2020 6:57 PM EDT Clyde Lopez RN * Because of a physical, mental, or emotional condition, do you have difficulty doing errands alone such as visiting a doctors office or shopping? (15 years old or older) Answer Date of Assessment Author No 10/18/2020 6:57 PM Clyde Reaves RN documented as of this encounter Mental Status * Because of a physical, mental, or emotional condition, do you have serious difficulty concentrating, remembering, or making decisions? (5 years old or older) Answer Entry Date Author No 10/18/2020 6:57 PM Clyde Reaves RN documented in this encounter Miscellaneous Notes * Telephone Encounter - Mikayla Fregoso LPN - 04/18/2024 2:54 PM EST Care Gaps Comprehensive Care Outreach Last Office/Telemedicine Visit: 2024 (in office), 09/22/2019 (telemedicine) Next Office Visit: 07/26/2024 Hemoglobin AIC Results: Lab Results Component Value Date/Time HEMOGLOBIN A1C - [facility] 5.8 (H) 10/19/2020 07:45 AM HEMOGLOBIN A1C - [facility] 5.8 (H) 10/18/2020 07:04 PM HEMOGLOBIN A1C - [facility] 5.6 06/03/2005 08:14 AM HEMOGLOBIN A1C - [facility] 5.1 12/23/1999 08:43 AM BP Readings from Last 1 Encounters: 01/15/24 146/80 Reviewed Health Maintenance below: Health Maintenance Topic Date Due Alpha-1 Antitrypsin Never done Zoster Vaccines (1 of 2) Never done Depression Screening 02/24/2023 Adult Wellness Visit 02/24/2023 Influenza Vaccine (FLU shot) (1) 01/17/2024 COVID-19 Vaccine ( season) 2024 awv Care Gap Outreach Action Taken: [employer] message sent documented in this encounter Plan of Treatment Upcoming Encounters Date Type Department Care Team (Late st Contact Info) Description 05/02/2024 8:00 AM EST Office Visit Cardiology, [address] [place] [address] [address] PA-C [address] [place] [address] 07/26/2024 3:20 PM EDT Office Visit Family Practice [facility] [address] [place] [address] Nilo Whitley DO [address] [place] [address] Scheduled Procedures Name Priority Associated Diagnoses Date/Ti me COLONOSCOPY FLEXIBLE PROXIMA L DIAGNOSTIC Recall History of colonic polyps Health Maintenance Due Date Last Done Comments Alpha-1 Antitrypsin 01/16/1960 Zoster Vaccines (1 of 2) 01/16/1992 Adult Wellness Visit 02/24/2023 02/24/2022, 01/26/20 21 Depression Screening 02/24/2023 02/24/2022 COVID-19 Vaccine ( season) 2024 04/23/2021, 09/12/2020, 08/15/2020 Influenza Vaccine (FLU shot) (#1) 2024 03/14/2003 GFR 01/14/2025 2024, 05/18, 05/05/2022, Additional history exists O2 ASSESSMENT COMPLETED IN PAST YEAR FOR COPD 01/14/2025 2024 Albumin/Creatinine Ratio 06/04/2026 06/04/2023, 04/17 DTap/Tdap Vaccines (2 - Td or Tdap) 06/18/2028 06/18/2018, 07/06/2008 Pneumococcal Vaccine: 65+ Years Completed 06/08/2017, 08/09/2008 Colonoscopy Discontinued 01/26/2019, 01/16, 08/03/2008 RETIRED - COLONOSCOPY-EVERY 5 YRS AGES 18-100 Discontinued 01/26/2019, 01/26/2019, 08/03/2008 HPV (Gardasil) Vaccine Aged Out No lo nger eligible based on patient's age to complete this topic Hepatitis B Vaccine Aged Out No longe r eligible based on patient's age to complete this topic MENINGOCOCCAL (MENACTRA/MENVEO) Aged Out No longer eligible based on patient's age to complete this topic documented as of this encounter Medical Devices Implanted Type Area Baseball Glove Stuffer Device Identifier Shelf Expiration Date Model / Serial / Lot Suture Steel 6 B&[id number] [id number] - [id number] Implanted:Qty: 7 on 10/22/2020 by Harjeet Coeloh MD at OR [facility] [place] N/A: Sternum JNJ : [employer] 05/17/2025 [id number] / / [id number] documented as of this encounter Advance Directives * Full Code (Latest Code Status on File) Date Activated Date Inactivated Comments 10/22/2020 11:24 AM 10/28/2020 6:20 PM This order r eflects the patients wishes and were consensually agreed upon. * Full Code Date Activated Date Inactivated Comments 10/18/2020 7:10 PM 10/22/2020 6:29 AM This order ref lects the patients wishes and were consensually agreed upon. Care Teams Occupational Health Technician Relationship Specialty Start Date End Date Nilo Whitley DO [address] [place] [address] PCP - General Family Medicine 02/27/17 documented as of this encounter
--- OUTSIDE RECORDS SUMMARY | 2024-05-02 12:54 | External Medical Summary ---
Author Name Unknown Address Unknown Organization [id number]:[facility] [facility] [address] [place] [id number] Laboratory Report Ordering Provider Test Date Status CHRISTALJUWAN 2024 14:05:24 Final Observation Date Value Abnormality Reference (Units ) Status Mallard light chains, Free, Serum 2024 14:05:24 27.46 Above high normal 3.30-19.40 (mg/L) Final Lambda light chains, free, Serum 2024 14:05:24 20.91 5.71-26.30 (mg/L) Final KAPPA LAMBDA [facility] RATIO 2024 14:05:24 1.31 0.26-1.65 Final Performing Location [facility] [place] - [address] [place] [address]
--- OUTSIDE RECORDS SUMMARY | 2024-05-02 12:54 | External Medical Summary | Summary of Care ---
Author Name Unknown Organization [facility] Address [address] [address] Phone [phone] Care Team Providers Care Business Data Analyst Name Role Phone Christal Echeverria DO Primary Care Provider [phone] Reason for Visit * Reason Comments eRx-Medication Refill Encounter Details Date Type Department Care Team (Late st Contact Info) Description 12/03/2023 Refill Family Practice [facility] [place] [address] [facility] [place] [id number] Christal Echeverria DO [address] [facility] [place] [address] ATHEROSCLEROTIC CORONARY DISEASE; Dyslipidemia, goal LDL below 70 Allergies Active Allergy Reactions Criticality Noted Date Comments Iodine Rash Low 08/08/2002 documented as of this encounter (statuses as of 12/03/2023) Medications Medication Sig Dispensed Refills Start Date End Date Status ASPIRIN EC LOW STRENGTH TBEC 81 MG OR Take 1 Tablet by mouth in the morning. 34 11 08/08/2002 Active VISION VITAMINS PO TABS 1 TABLET DAILY 0 05/27/2005 Active VITAMIN D 400 UNITS PO TABS take 1 tablet by mouth daily 12/17/2012 Active COENZYME Q-10 100 MG PO CAPS 1 tablet daily Active vitamin c (ASCORBIC ACID) 500 MG Tablet Take 2 Tablets by mouth in the morning. Active Nitroglycerin 0.4 MG Sublingual Tablet Sublingual (Nitrostat) Place 1 Tablet under the tongue every 5 minutes as needed for Pain, Chest. 10/18/2020 Active Cyanocobalamin 500 MCG Oral Tablet Take 1 Tablet by mouth in the morning. 10/18/2020 Active Vitamin E 45 MG (100 UNIT) Oral Capsule Take by mouth daily . Active Zinc 50 MG Oral Tablet Take 1 Tablet by mouth in the morning. Active Metoprolol Tartrate 25 MG Oral Tablet (Lopressor)Indicatio ns:HTN, goal below 140/90,ASCVD (arteriosclerotic cardiovascular disease),S/P coronary artery stent placement,S/P CABG x 3,Paroxysmal atrial fibrillation (HCC) take 1 tablet by mouth every 12 hours 180 Tablet 3 04/20/2023 Active Lisinopril 10 MG Oral Tablet (Prinivil)Indication s:HTN, goal below 140/90 take 1 tablet by mouth every morning 90 Tablet 3 05/28/2023 Active Clopidogrel Bisulfate 75 MG Oral Tablet (pLAVix)Indications: Cerebrovascular disease, arteriosclerotic, post-stroke,S/P coronary artery stent placement take 1 tablet by mouth every morning 90 Tablet 1 07/03/2023 Active Atorvastatin Calcium 40 MG Oral Tablet (Lipitor)Indications :ASCVD (arteriosclerotic cardiovascular disease),Dyslipidemi a, goal LDL below 70 take 1 tablet by mouth every morning 90 Tablet 1 12/03/2023 Active Atorvastatin Calcium 40 MG Oral Tablet (Lipitor)Indications :ASCVD (arteriosclerotic cardiovascular disease),Dyslipidemi a, goal LDL below 70 take 1 tablet by mouth every morning 90 Tablet 1 06/08/2023 Discontinued documented as of this encounter (statuses as of 12/03/2023) Active Problems Problem Noted Date Diagnosed Date Atherosclerosis of [place] co ronary artery of [place] heart without angina pectoris 06/29/2023 Paroxysmal atrial fibrillation 11/01/2021 Coronary artery disease invo lving [place] coronary artery with angina pectoris 11/06/2020 Emphysema lung 11/06/2020 Unspecified atrial fibrillation 11/06/2020 S/P CABG x 3 10/28/2020 Asymptomatic stenosis of right carotid artery History of RI (myocardial infarction) 12/11/2017 Obesity, Class I, BMI 30.0-34.9 (see actual BMI) 12/11/2017 Family history of malignant neoplasm of prostate 06/08/2017 S/P coronary artery stent placement 03/05/2017 Bradycardia 09/22/2016 Chews tobacco 05/14/2013 Dyslipidemia, goal LDL below 70 04/26/2009 Overview: Per Lipid Taxonomy. CEREBROVASCULAR DZ, POST-STROKE 12/14/2008 Overview: Modified per CVA protocol #8. ministroke negative workup, transient numbness CAROTID STENOSIS, NON-SYMPTOMATIC 11/02/2008 Overview: Modified per Carotid Stenosis protocol #10 ADVANCE DIRECTIVE INFORMATION 09/24/2004 Overview: No, Advance Directive brochure given to patient at prior appointment. HTN, goal below 140/90 08/06/2002 documented as of this encounter (statuses as of 12/03/2023) Resolved Problems Problem Noted Date Diagnosed Date [...] 05/14/2013 12/11/2017 CEREBROVASCULAR DZ, POST-STROKE 11/02/2008 12/14/2008 Overview: Modified per CVA protocol #8. ministroke negative workup, transient numbness Carotid Stenosis, non-symptomatic 07/12/2008 11/02/2008 Overview: Modified per Carotid Stenosis protocol #10 CAD (coronary artery disease) 08/06/2002 10/30/2021 Overview: More specified condition noted on pl with angina Mixed dyslipidemia 08/06/2002 9 Overview: Per Lipid Taxonomy. Cerebrovascular event, ill-d efined, within last 8 weeks 07/14/1995 11/02/2008 Overview: Modified per CVA protocol #8 Calculus of kidney 0 documented as of this encounter (statuses as of 12/03/2023) Immunizations Name Administration Dates Next Due COVID-19 [...] 05/18/1959 - 05/18/1979 Smokeless Tobacco: Current Snuff Comments:1 1/2 cans per week . Alcohol Use Standard Drinks/Week Comments No 0 (1 standard drink = 0.6 oz pur e alcohol) PHQ-2 Answer Date Recorded PHQ Adult Total Score 0 02/24/2022 Hunger Vital Sign Answer Date Recorded Within the past 12 months, y ou worried that your food would run out before you got the money to buy more. Never true 11/13/19 23 Within the past 12 months, t he food you bought just didn't last and you didn't have money to get more. Never true 11/12/2022 Childcare Answer Date Recorded Do you feel overwhelmed with taking care of a child, family member or friend? No 11/12/2022 Does your family need help f inding childcare? (Household - for ages 0-17 years) Not on file 11/12/2022 Clothing Answer Date Recorded Have you been unable to get clothing when it was really needed? No 11/12/2022 Is your family able to get c lothes or diapers when needed? (Household - for ages 0-17 years) Not on file 11/12/2022 Personal Safety Answer Date Recorded Do you feel unsafe or have concerns for your saf ety? No 11/12/2022 Do you have concerns for you r family's safety? (Household - for ages 0-17 years) Not on file 11/12/2022 Utilities Answer Date Recorded Do you have trouble paying y our heating, water, or electric bill? (Adult - for ages 18 years and over) Not on file 11/16/2023 Is your family able to pay t he heat, water, or electric bill? (Household - for ages 0-17 years) Not on file 11/16/2023 Does your family have access to good internet? (Household - for ages 0-17 years) Not on file 11/16/2023 Employment Status Answer Date Recorded Are you unemployed or without regular income? No 11/12/2022 Does the household have a re gular source of income? (Household - for ages 0-17 years) Not on file 11/12/2022 Social Connections Answer Date Recorded How often do you feel lonely or isolated from those around you? (Adult - for ages 18 years and over) Not on file 11/16/2023 Financial Resource Strain Answer Date R ecorded Do you have any trouble payi ng for your medications, or do you think you might in the future? No 11/12/2022 Does your family have troubl e paying for medicine? (Household - for ages 0-17 years) Not on file 11/12/2022 Transportation Needs Answer Date Record ed READ ONLY Do you have troubl e getting a ride to medical visits or work? Never True 11/12/2022 Does your family have a hard time getting a ride to doctors visits? (Household - for ages 0-17 years) Not on file 11/12/2022 Has lack of transportation k ept you from medical appointments, meetings, work, or from getting things needed for daily living? Check all that apply. (Adult - for ages 18 years and over) Not on file 11/12/2022 Do you (or your family) have trouble finding or paying for a ride (transportation)? (Household - for ages 0-17 years) Not on file 11/12/2022 Housing Stability Answer Date Recorded Do you currently live in a s helter or have no steady place to sleep at night? No 11/12/2022 READ ONLY Do you think you a re at risk of becoming homeless? No 11/12/2022 Does your family worry about paying for your home or becoming homeless? (Household - for ages 0-17 years) Not on file 0 11/12/2022 Are you homeless or worried that you might be in the future? (Adult - for ages 18 years and over) Not on file Are you (or your family) neha eless or worried that you might be in the future? (Household - for ages 0-17 years) Not on file Food Insecurity Answer Date Recorded Do you need food for this week? No 11/12/2022 Are you able to get enough f ood for your family? (Household - for ages 0-17 years) Not on file 11/12/2022 Does your family need food t his week? (Household - for ages 0-17 years) Not on file 11/12/2022 Do you always have enough fo od for your family? (Household - for ages 0-17 years) Not on file 11/12/2022 Sex and Gender Information Value Date Recorded Sex Assigned at Male 10/30/2021 7:44 AM EDT Gender Identity Male 10/30/2021 7:44 AM EDT Sexual Orientation Straight 10/30/2021 7: 44 AM EDT Job Start Date Occupation Industry Not on file Not on file Not on file documented as of this encounter Functional Status Functional Status Response Date of Assess ment Are you deaf or do you have serious difficulty h earing? No 10/18/2020 Are you blind or do you have serious difficulty seeing, even when wearing glasses? No 10/18/2020 Do you have serious difficul ty walking or climbing stairs? (5 years old or older) Yes 10/18/2020 Do you have difficulty dress ing or bathing? (5 years old or older) No 10/18/2020 Because of a physical, menta l, or emotional condition, do you have difficulty doing errands alone such as visiting a doctor s office or shopping? (15 years old or older) No 10/19/19 Cognitive Status Response Date of Assessm ent Because of a physical, menta l, or emotional condition, do you have serious difficulty concentrating, remembering, or making decisions? (5 years old or older) No 10/18/2020 documented as of this encounter Miscellaneous Notes * Telephone Encounter - Gail Patel RPh - 12/03/2023 5:31 PM EDT * Telephone Encounter - Gail Patel RPh - 12/03/2023 5:31 PM EDTSigned Prescriptions: Disp Refills Atorvastatin Calcium 40 MG Oral Tablet (Li*90 Tab*1 Sig: take 1 tablet by mouth every morning Authorizing Provider: CHRISTAL ECHEVERRIA Ordering User: GAIL PATEL documented in this encounter Plan of Treatment Upcoming Encounters Date Type Department Care Team (Late st Contact Info) Description 01/06/2024 10:30 AM EDT Imaging Vascular Lab, [facility] 2nd [facility] [address] [place] [address] 01/13/2024 10:30 AM EDT Office Visit Vascular Surgery, [facility] [address] [facility] [place] [address] Tacho John MD [address], [place] [id number] 2024 1:00 PM EDT Office [facility] [address] [place] [address] Christal Echeverria, [address] [place] [address] Scheduled Procedures Name Priority Associated Diagnoses Date/Ti me COLONOSCOPY FLEXIBLE PROXIMA L DIAGNOSTIC Recall History of colonic polyps Health Maintenance Due Date Last Done Comments Alpha-1 Antitrypsin 01/16/1960 Zoster Vaccines (1 of 2) 01/16/1992 COVID-19 Vaccine ( season) 2023 04/23/2021, 09/12/2020, 08/15/2020 Depression Screening 02/24/2023 02/24/2022 Influenza Vaccine (FLU shot) (#1) 2024 03/14/2003 Colonoscopy 01/27/2024 01/26/2019, 01/16, 08/03/2008 GFR 06/04/2024 06/04/2023, 04/17, 04/16/2021, Additional history exists O2 ASSESSMENT COMPLETED IN PAST YEAR FOR COPD 06/29/2024 06/29/2023 Albumin/Creatinine Ratio 06/04/2026 06/04/2023, 04/17 DTaP,Tdap,and Td Vaccines (2 - Td or Tdap) 06/18/2028 06/18/2018, 07/06/2008 Pneumococcal Vaccine: 65+ Years Completed 06/08/2017, 08/09/2008 RETIRED - COLONOSCOPY-EVERY 5 YRS AGES 18-100 [...] this encounter Medical Devices Implanted Type Area Bioinformatics Programmer Device Identifier Shelf Expiration Date Model / Serial / Lot Suture Steel 6 [id number] - [id number] Implanted:Qty: 7 on 10/22/2020 by [place]jeet [place] [facility] [place] Sternum [place] : [employer] 05/17/2025 [id number] / / [id number] documented as of this encounter Visit Diagnoses Diagnosis ATHEROSCLEROTIC CORONARY DISEASE Unspecified cardiovascular disease Dyslipidemia, goal LDL below 70 Other and unspecified hyperlipidemia documented in this encounter Advance Directives * Full Code (Latest Code Status on File) Date Activated Date Inactivated Comments 10/22/2020 11:24 AM 10/28/2020 6:20 PM This order r eflects the patients wishes and were consensually agreed upon. * Full Code Date Activated Date Inactivated Comments 10/18/2020 7:10 PM 10/22/2020 6:29 AM This order ref lects the patients wishes and were consensually agreed upon. Care Teams Business Data Analyst Relationship Specialty Start Date End Date Christal Echeverria DO [address] [place] [address] PCP - General Family Medicine 02/27/17 documented as of this encounter
--- OUTSIDE RECORDS SUMMARY | 2024-05-02 12:54 | External Medical Summary ---
Author Name Unknown Address Unknown Organization [id number]:[facility] [place] [address] Laboratory Report Ordering Provider Test Date Status CHRISTALJUWAN 2024 14:02:25 Final Warfarin Therapy
INR: 2 .0-3.0 conventional anticoagulation
INR: 2.5- 3.5 high intensity anticoagulation Observation Date Value Abnormality Reference (Units ) Status PT 2024 14:02:25 14.0 11.6-15.2 (seconds) Final INR 2024 14:02:25 1.1 0.8-1.2 Final Performing Location [facility] [place] [address]
--- OUTSIDE RECORDS SUMMARY | 2024-05-02 12:54 | External Medical Summary ---
Author Name Unknown Address Unknown Organization [id number]:[facility] [place] [address] [place] [address] Laboratory Report Ordering Provider Test Date Status JWUAN SIEGEL 2024 14:02:25 Final Anticoagulation may affect t esting. Refer to [facility] Test Catalog for a list of effects. Observation Date Value Abnormality Reference (Units ) Status aPTT panel - Platelet poor plasma 2024 14:02:25 28 21-38 (seconds) Final Performing Location [facility] [place] [address] [place] [address]
--- OUTSIDE RECORDS SUMMARY | 2024-05-02 12:54 | External Medical Summary ---
Author Name Unknown Address Unknown Organization [id number]:[facility] [place] - [address] [place] [id number] Laboratory Report Ordering Provider Test Date Status JUWAN SIEGEL 2024 14:05:24 Final Observation Date Value Abnormality Reference (Units) Status PARAPROTEIN NORMAL/ABNORMAL 2024 14:05:24 Normal Normal Final Immunofixation for Serum or Plasma 2024 14:05:24 No monoclonal gammopathy detected. Final Performing Location [facility] [place] - [address] [place] [id number]
--- OUTSIDE RECORDS SUMMARY | 2024-05-02 12:54 | External Medical Summary | Summary of Care ---
Author Name Unknown Organization [facility] Address [address] [address] Phone [phone] Care Team Providers Care Public Improvement Inspector Name Role Phone Nilo Whitley DO Primary Care Provider [phone] Reason for Referral * Evaluate & Treat - Unlimited Visits (Within 30 days (routine)) - Authorized Specialty Diagnoses / Procedures Referred By Contac t Referred To Contact Cardiovascular Medicine / Cardiology Diagnoses HTN, goal below 140/90 S/P coronary artery stent placement Coronary artery disease involving [place] coronary artery of [place] heart with angina pectoris (HCC) Paroxysmal atrial fibrillation (HCC) Nilo Whitley DO [address] [place] [id number] Referral ID Status Reason Start Date Expiration Date Visits Requested Visits Authorized [id number] Authorized Specialty Services Required 2024 999 999 Question Answer Referral Priority Within 30 days (routine) Where should this appointment be scheduled? [facility] To which of the following clinics are you referring your patient? General Cardiology Clinic Reason for Visit * Reason Comments Follow Up Encounter Details Date Type Department Care Team (Late st Contact Info) Description 2024 1:00 PM EDT Office Visit Family Practice [facility] Le[facility] [address] [place] [id number] Nilo Whitley DO [address] [place] [address] Easy bruising*; Pulmonary emphysema, unspecified emphysema type (HCC); HTN, goal below 140/90; S/P coronary artery stent placement; Coronary artery disease involving [place] coronary artery of [place] heart with angina pectoris (HCC); Paroxysmal atrial fibrillation (HCC) Allergies Active Allergy Reactions Criticality Noted Date Comments Iodine Rash Low 08/08/2002 documented as of this encounter (statuses as of 2024) Medications Medication Sig Dispensed Refills Start Date [...] Active Metoprolol Tartrate 25 MG Oral Tablet (Lopressor)Indications :HTN, goal below 140/90,ASCVD (arteriosclerotic cardiovascular disease),S/P coronary artery stent placement,S/P CABG x 3,Paroxysmal atrial fibrillation (HCC) take 1 tablet by mouth every 12 hours 180 Tablet 3 04/20/2023 Active Lisinopril 10 MG Oral Tablet (Prinivil)Indications: HTN, goal below 140/90 take 1 tablet by mouth every morning 90 Tablet 3 05/28/2023 Active Clopidogrel Bisulfate 75 MG Oral Tablet (pLAVix)Indications:Ce rebrovascular disease, arteriosclerotic, post-stroke,S/P coronary artery stent placement take 1 tablet by mouth every morning 90 Tablet 1 07/03/2023 Active Atorvastatin Calcium 40 MG Oral Tablet (Lipitor)Indications:A SCVD (arteriosclerotic cardiovascular disease),Dyslipidemia, goal LDL below 70 take 1 tablet by mouth every morning 90 Tablet 1 12/03/2023 Active documented as of this encounter (statuses as of 2024) Active Problems Problem Noted Date Diagnosed Date Atherosclerosis of [place] co ronary artery of [place] heart without angina pectoris 06/29/2023 Paroxysmal atrial fibrillation 11/01/2021 Coronary artery disease invo lving [place] coronary artery with angina pectoris 11/06/2020 Emphysema lung 11/06/2020 Unspecified atrial fibrillation 11/06/2020 S/P CABG x 3 10/28/2020 Asymptomatic stenosis of right carotid artery History of [place] (myocardial infarction) 12/11/2017 Obesity, Class I, BMI [...] as of this encounter (statuses as of 2024) Resolved Problems Problem Noted Date Diagnosed Date [...] on pl with angina Mixed dyslipidemia 08/06/2002 Overview: Per Lipid Taxonomy. Cerebrovascular event, ill-d efined, within last 8 weeks 07/14/1995 11/02/2008 Overview: Modified per CVA protocol #8 Calculus of kidney 0 documented as of this encounter (statuses as of 2024) Immunizations Name Administration Dates Next Due COVID-19 [...] money to buy more. Never true 01/09/20 Within the past 12 months, t he [...] on file documented as of this encounter Last Filed Vital Signs Vital Sign Reading Time Taken Comments Blood Pressure 146/80 2024 1:01 PM EDT Pulse 50 2024 1:01 PM EDT Temperature 36.4 C (97.6 F) 2024 1:01 PM ED T Respiratory Rate - - Oxygen Saturation 98% 2024 1:01 PM EDT Inhaled Oxygen Concentration - - Weight 91.7 kg (202 lb 3.2 oz) 2024 1:01 P M EDT Height - - Body Mass Index 31.15 06/29/2023 9:52 AM EST documented in this encounter Functional Status Functional Status Response [...] No 10/18/2020 documented as of this encounter Progress Notes * Nilo Whitley, DO - 2024 1:22 PM EDT Subjective: Gaurav Ocampo is a 83 year old male. Chief Complaint Patient presents with Follow Up HPI: Pt here in follow-up. 84nd birthday tomorrow. Feeling pretty good. He had his vascular visit earlier this week. They discussed his bruising. It is always his left arm and not his R. Also on his L leg. Has a knot there. We discussed any possible cause at home or with acitivity. Muscle tear from a few years ago passed. He has had extra bruising since May. Does not bother him much but interested in seeing if thereis a reason why. Told before he may have bleeding issues. Does not need a colonoscopy anymore. We talked about his records. 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 34 11 VISION VITAMINS PO TABS 1 TABLET DAILY 0 VITAMIN D 400 UNITS PO TABS take 1 tablet by mouth daily COENZYME Q-10 100 MG PO CAPS 1 tablet daily vitamin c (ASCORBIC ACID) 500 MG Tablet Take 2 Tablets by mouth in the morning. Nitroglycerin 0.4 MG Sublingual Tablet Sublingual (Nitrostat) Place 1 Tablet under the tongue every5 minutes as needed for Pain, Chest. Cyanocobalamin 500 MCG Oral Tablet Take 1 Tablet by mouth in the morning. Vitamin E 45 MG (100 UNIT) Oral Capsule Take by mouth daily . Zinc 50 MG Oral Tablet Take 1 Tablet by mouth in the morning. Metoprolol Tartrate 25 MG Oral Tablet (Lopressor) take 1 tablet by mouth every 12 hours 180 Tablet 3 Lisinopril 10 MG Oral Tablet (Prinivil) take 1 tablet by mouth every morning 90 Tablet 3 Clopidogrel Bisulfate 75 MG Oral Tablet (pLAVix) take 1 tablet by mouth every morning 90 Tablet 1 Atorvastatin Calcium 40 MG Oral Tablet (Lipitor) take 1 tablet by mouth every morning 90 Tablet 1 No current facility-administered medications for this visit. Review of patient's allergies indicates: Allergen Reactions Iodine Rash OBJECTIVE: BP 146/80 | Pulse 50 | Temp 36.4 C (97.6 F) | Wt 91.7 kg (202 lb 3.2 oz) | SpO2 98% | BMI 31.15kg/m | BSA 2.09 m Estimated body mass index is 31.15 kg/m as calculated from the following: Height as of 06/29/23: 1.716 m (5' 7.56"). Weight as of this encounter: 91.7 kg (202 lb 3.2 oz). BP Readings from Last 3 Encounters: 01/15/24 146/80 01/13/24 180/92 06/29/23 124/70 Wt Readings from Last 3 Encounters: 01/15/24 91.7 kg (202 lb 3.2 oz) 01/13/24 92.2 kg (203 lb 4.8 oz) 06/29/23 93.4 kg (206 lb) ROS: Negative except for above PHYSICAL EXAM: General: alert, healthy, and no distress Head: Normocephalic, No masses, lesions, tenderness or abnormalities Heart: regular rate & rhythm, no murmur, and no gallops Lungs: chest symmetric with normal AP diameter, no chest deformities noted, no chest wall tenderness, lungs clear to auscultation Extremities: less than 2 second capillary refill, no joint deformities, effusion, or inflammation Bruises on his L arm and leg. Nothing on the R. ASSESSMENT/Plan Easy bruising (Primary) - CBC; Future; Expected date: 2024 - PT INR; Future; Expected date: 2024 - APTT; Future; Expected date: 2024 - MONOCLONAL GAMMOPATHIES SCREENING PANEL; Future; Expected date: 2024 - COMPREHENSIVE METABOLIC PANEL; Future; Expected date: 2024 Pulmonary emphysema, unspecified emphysema type (HCC) HTN, goal below 140/90 - CARDIOLOGY REFERRAL OP S/P coronary artery stent placement - CARDIOLOGY REFERRAL OP Coronary artery disease involving [place] coronary artery of [place] heart with angina pectoris (HCC) - CARDIOLOGY REFERRAL OP Paroxysmal atrial fibrillation (HCC) - CARDIOLOGY REFERRAL OP I spent a total of 40 minutes on the date of service in preparation, delivery, and documentation ofthe care provided to this patient, excluding any time spent on the performance of any procedure or separately billable services. Will do blood work for easy bruising. May just be blood thinners. The above was discussed and understanding was expressed. Nilo Whitley DO documented in this encounter Nursing Notes * Maki Heredia CMA - 2024 12:59 PM EDT Gaurav Ocampo presents for 6 month recheck. Medications & HM reviewed. He would like to discuss bruising on mostly his left side. Currently has unknown bruising on his left arm, previously had arandom bruise on his left thigh and does not result from any injury. He denies any pain. documented in this encounter Plan of Treatment Upcoming Encounters Date Type Department Care Team (Late st Contact Info) Description 05/02/2024 8:00 AM EST Office Visit Cardiology, [facility] [address] [place] [address] [address] PA-C [address] [address] 07/26/2024 3:20 PM EDT Office Visit Family Practice [facility] [address] [facility] [place] [address] Nilo Whitley DO [address] [facility] [place] [id number] Pending Results Name Type Priority Associated Diagnoses Date /Time PT INR Lab Routine Easy bruising 2024 2:02 PM EDT APTT Lab Routine Easy bruising 2024 2:02 PM EDT MONOCLONAL GAMMOPATHIES SCREENING PANEL Lab Routine Easy bruising 2024 2:05 PM EDT COMPREHENSIVE METABOLIC PANEL Lab Routine Easy bruising 2024 2:02 PM EDT Scheduled Orders Name Type Priority Associated Diagnoses Orde r Schedule PT INR Lab Routine Easy bruising Expected: 2024 (Approximate), Expires: 01/14/2025 APTT Lab Routine Easy bruising Expected: 2024 (Approximate), Expires: 01/14/2025 MONOCLONAL GAMMOPATHIES SCREENING PANEL Lab Routine Easy bruising Expected: 2024, Expires: 01/14/2025 COMPREHENSIVE METABOLIC PANEL Lab Routine Easy bruising Expected: 2024 (Approximate), Expires: 01/14/2025 Scheduled Procedures Name Priority Associated Diagnoses Date/Ti me COLONOSCOPY FLEXIBLE PROXIMA L DIAGNOSTIC Recall History of colonic polyps Scheduled Referrals Name Type Priority Associated Diagnoses Orde r Schedule CARDIOLOGY REFERRAL OP Referral Within 30 days (routine) HTN, goal below 140/90 S/P coronary artery stent placement Coronary artery disease involving [place] coronary artery of [place] heart with angina pectoris (HCC) Paroxysmal atrial fibrillation (HCC) Ordered: 2024 Health Maintenance Due Date Last Done Comments Alpha-1 Antitrypsin 01/16/1960 Zoster Vaccines (1 of 2) 01/16/1992 COVID-19 Vaccine ( season) 2023 04/23/2021, 09/12/2020, 08/15/2020 Adult Wellness Visit 02/24/2023 02/24/2022, 01/26/20 21 Depression Screening 02/24/2023 02/24/2022 Influenza Vaccine (FLU shot) (#1) 2024 03/14/2003 GFR 06/04/2024 06/04/2023, 04/17, 04/16/2021, Additional history [...] this encounter Medical Devices Implanted Type Area Weight Count Operator Device Identifier Shelf Expiration Date Model / Serial / Lot Suture Steel 6 B&S19 [id number] - [id number] Implanted:Qty: 7 on 10/22/2020 by Harjeet Coelho MD at [place] [facility] [place] N/A: Sternum JNJ : [employer] 05/17/2025 [id number] / / [id number] documented as of this encounter Visit Diagnoses Diagnosis Easy bruising- Primary Other symptoms involving skin and integumentary tissues Pulmonary emphysema, unspecified emphysema type (HCC) HTN, goal below 140/90 Unspecified essential hypertension S/P coronary artery stent placement Postsurgical percutaneous transluminal coronary angioplasty status Coronary artery disease involving [place] coronary artery of [place] heart with angina pectoris (HCC) Paroxysmal atrial fibrillation (HCC) Atrial fibrillation documented in this encounter Advance Directives * [...] and were consensually agreed upon. Care Teams Public Improvement Inspector Relationship Specialty Start Date End Date Nilo Whitley DO [address] [place] [address] PCP - General Family Medicine 02/27/17 documented as of this encounter
--- OUTSIDE RECORDS SUMMARY | 2024-05-02 12:54 | External Medical Summary ---
Author Name Unknown Address Unknown Organization [id number]:[facility] [place] [facility] [place] [address] [facility] [address] Laboratory Report Ordering Provider Test Date Status JUWAN SIEGEL 2024 14:05:24 Final Observation Date Value Abnormality Reference (Units) Status PARAPROTEIN NORMAL/ABNORMAL 2024 14:05:24 Normal Normal Final Protein 2024 14:05:24 7.0 6.0-8.3 (g/dL) Final Albumin/Protein.total [Pure mass fraction] in Serum or Plasma by Electrophoresis 2024 14:05:24 3.82 3.30-4.40 (g/dL) Final Alpha 1 globulin/Protein.tota l [Pure mass fraction] in Serum or Plasma by Electrophoresis 2024 14:05:24 0.18 0.10-0.30 (g/dL) Final Alpha 2 globulin/Protein.tota l [Pure mass fraction] in Serum or Plasma by Electrophoresis 2024 14:05:24 0.83 0.60-1.00 (g/dL) Final Beta globulin/Protein.tota l [Pure mass fraction] in Serum or Plasma by Electrophoresis 2024 14:05:24 0.85 0.80-1.30 (g/dL) Final Gamma globulin/Protein.tota l [Pure mass fraction] in Serum or Plasma by Electrophoresis 2024 14:05:24 1.32 0.70-1.70 (g/dL) Final Protein Fractions [Interpretation] in Serum or Plasma by Electrophoresis Narrative 2024 14:05:24 Normal serum protein electrophoretic pattern. Final Performing Location [facility] [place] [address] [place] [address]
--- OUTSIDE RECORDS SUMMARY | 2024-05-02 12:54 | External Medical Summary | Summary of Care ---
Author Name Unknown Organization [facility] Address [address] [address] Phone [phone] Care Team Providers Care Stewardesses Teacher Name Role Phone Malachi Whitleye Elizabeth PAREDES Primary Care Provider [phone] Reason for Visit * Reason Comments Outpatient Testing Encounter Details Date Type Department Care Team (Late st Contact Info) Description 2024 2:00 PM EDT Laboratory Laboratory [facility] [address] [id number] [facility] [address] [facility] [place] [address] S/P coronary artery stent placement; Encounter for long-term (current) use of medications; Easy bruising Allergies Active Allergy Reactions Criticality Noted Date [...] Problem Noted Date Diagnosed Date Atherosclerosis of [place] co ronary artery of [place] heart without angina pectoris 06/29/2023 Paroxysmal atrial fibrillation 11/01/2021 Coronary artery disease invo lving [place] coronary artery with angina pectoris 11/06/2020 Emphysema lung 11/06/2020 Unspecified atrial fibrillation 11/06/2020 S/P CABG x 3 10/28/2020 Asymptomatic stenosis of right carotid artery History of [place] (myocardial infarction) 12/11/2017 Obesity, Class I, BMI [...] Valent (Prevnar) 06/08/2017 Pneumococcal Polysaccharide PPV23 (Pneumovax) Seasonal Influenza, Trivalen t, (IIV3), with Preserv, (Fluzone) 03/14/2003 TD, Preservative Free 07/06/2008 TDAP (age 10 [...] No 01/09/2024 Does the household have a [facility] source of income? (Household - for ages [...] No 10/18/2020 documented as of this encounter Plan of Treatment Upcoming Encounters Date Type Department Care Team (Late st Contact Info) Description 05/02/2024 8:00 AM EST Office Visit Cardiology, [facility] [address] [place] [address] [address] PA-C [address] [place] [address] 07/26/2024 3:20 PM EDT Office Visit Family Practice [facility] [address] [facility] [place] [address] Nilo Whitley DO [address] [facility] [place] [address] Pending Results Name Type Priority Associated Diagnoses Date /Time CBC Lab Routine S/P coronary artery stent placement Encounter for long-term (current) use of medications 2024 2:02 PM EDT PT INR Lab Routine Easy bruising 2024 2:02 PM EDT APTT Lab Routine Easy bruising 2024 2:02 PM EDT COMPREHENSIVE METABOLIC PANEL Lab Routine Easy bruising 2024 2:02 PM EDT MONOCLONAL GAMMOPATHIES SCREENING PANEL Lab Routine Easy bruising 2024 2:05 PM EDT SERUM PROTEIN ELECTROPHORESIS REFLEX PROFILE Lab Routine Easy bruising 2024 2:05 PM EDT SERUM FREE LIGHT CHAINS Lab Routine Easy bruising 2024 2:05 PM EDT SERUM IMMUNOFIXATION Lab Routine Easy bruising 2024 2:05 PM EDT Scheduled Orders Name Type Priority Associated Diagnoses Orde r Schedule URINE IMMUNOFIXATION, BENCE SHAFFER PROTEIN, RANDOM URINE Lab Routine Easy bruising Ordered: 2024 Scheduled Procedures Name Priority Associated Diagnoses Date/Ti [...] this encounter Medical Devices Implanted Type Area Mortgage Loan Underwriter Device Identifier Shelf Expiration Date Model / Serial / Lot Suture Steel 6 B&S19 M654g - [id number] Implanted:Qty: 7 on 10/22/2020 by Harjeet Coelho MD at OR [facility] [place] N/A: Sternum JNJ : [employer] 05/17/2025 [id number] / / RABBTJ documented as of this encounter Visit Diagnoses Diagnosis S/P coronary artery stent placement Postsurgical percutaneous transluminal coronary angioplasty status Encounter for long-term (current) use of medications Encounter for long-term (current) use of other medications Easy bruising Other symptoms involving skin and integumentary tissues documented in this encounter Advance Directives * [...] and were consensually agreed upon. Care Teams Stewardesses Teacher Relationship Specialty Start Date End Date Nilo Whitley DO [address] [place] [address] PCP - General Family Medicine 02/27/17 documented as of this encounter
--- OUTSIDE RECORDS SUMMARY | 2024-05-02 12:54 | External Medical Summary | Summary of Care ---
Author Name Unknown Organization [facility] Address [address] [place] [address] Phone [phone] Care Team Providers Care Iron Carrier Name Role Phone Angi Nilo Elizabeth PAREDES Primary Care Provider [phone] Reason for Visit * Reason Comments eRx-Medication Refill Encounter Details Date Type Department Care Team (Late st Contact Info) Description 04/06/2024 Refill Cardiology, [facility] [address] [place] [address] Tacho Huynh DO [address] [place] [address] HTN, goal below 140/90; ASCVD (arteriosclerotic cardiovascular disease); S/P coronary artery stent placement; S/P CABG x 3; Paroxysmal atrial fibrillation (HCC) Allergies Active Allergy Reactions Criticality Noted Date Comments Iodine Rash Low 08/08/2002 documented as of this encounter (statuses as of 04/07/2024) Medications ASPIRIN EC LOW STRENGTH TBEC 81 MG OR Take 1 Tablet by mouth in the morning. 34 11 08/09/19 03 Active VISION VITAMINS PO TABS 1 TABLET DAILY 0 05/27/19 06 Active VITAMIN D 400 UNITS PO TABS take 1 tablet by mouth daily 12/18/19 13 Active COENZYME Q-10 100 MG PO CAPS 1 tablet daily Active vitamin c (ASCORBIC ACID) 500 MG Tablet Take 2 Tablets by mouth in the morning. Active Nitroglycerin 0.4 MG Sublingual Tablet Sublingual (Nitrostat) Place 1 Tablet under the tongue every 5 minutes as needed for Pain, Chest. 10/19/19 Active Cyanocobalamin 500 MCG Oral Tablet Take 1 Tablet by mouth in the morning. 10/19/19 21 Active Vitamin E 45 MG (100 UNIT) Oral Capsule Take by mouth daily . Active Zinc 50 MG Oral Tablet Take 1 Tablet by mouth in the morning. Active Lisinopril 10 MG Oral Tablet (Prinivil)Indicati ons:HTN, goal below 140/90 take 1 tablet by mouth every morning 90 Tablet 3 05/28/19 24 Active Atorvastatin Calcium 40 MG Oral Tablet (Lipitor)Indicatio ns:ASCVD (arteriosclerotic cardiovascular disease),Dyslipide ayesha, goal LDL below 70 take 1 tablet by mouth every morning 90 Tablet 1 12/03/19 24 Active Clopidogrel Bisulfate 75 MG Oral Tablet (pLAVix)Indication s:Cerebrovascular disease, arteriosclerotic, post-stroke,S/P coronary artery stent placement take 1 tablet by mouth every morning 90 Tablet 1 03/01/20 24 Active Metoprolol Tartrate 25 MG Oral Tablet (Lopressor)Indicat ions:HTN, goal below 140/90,ASCVD (arteriosclerotic cardiovascular disease),S/P coronary artery stent placement,S/P CABG x 3,Paroxysmal atrial fibrillation (HCC) take 1 tablet by mouth every 12 hours 180 Tablet 04/07/20 24 Active Metoprolol Tartrate 25 MG Oral Tablet (Lopressor)Indicat ions:HTN, goal below 140/90,ASCVD (arteriosclerotic cardiovascular disease),S/P coronary artery stent placement,S/P CABG x 3,Paroxysmal atrial fibrillation (HCC) take 1 tablet by mouth every 12 hours 180 Tablet 3 04/20/20 23 024 Discontinued documented as of this encounter (statuses as of 04/07/2024) Active Problems Problem Noted Date Diagnosed Date Atherosclerosis of [place] co ronary artery of [place] heart without angina pectoris 06/29/2023 Paroxysmal atrial fibrillation 11/01/2021 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 Cerebrovascular event, ill-d efined, within last 8 weeks 07/14/1995 11/02/2008 Overview (11/02/2008): Modified per CVA protocol #8 Calculus of kidney 0 documented as of this encounter (statuses as of 04/07/2024) Immunizations Name Administration Dates Next Due COVID-19 [...] the money to buy more. 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 Answer Date of Assessment Author No 10/18/2020 6:57 PM EDT John, Clyde H, RN * Are you blind or do you have serious difficulty seeing, even when wearing glasses? Answer Date of Assessment Author No 10/18/2020 6:57 PM EDT Clyde Lopez RN * Do you have [...] encounter Miscellaneous Notes * Telephone Encounter - Anne-Marie Ibrahim RPh - 04/07/2024 8:37 AM ESTSigned Prescriptions: Disp Refills Metoprolol Tartrate 25 MG Oral Tablet (Lop*180 Ta*0 Sig: take 1tablet by mouth every 12 hoursAuthorizing Provider: ANGÉLICA CASTAÑEDA User: ANNE-MARIE IBRAHIM * Telephone Encounter - Anne-Marie Ibrahim RPh - 04/07/2024 8:32 AM EST BP on 01/13/24 was elevated at vascular surgery appt. Note states pt checks at home and it is well controlled. Otherwise BP readings are mostly at goal. RX authorized. Zero refills given until upcoming appt. 05/02/2024. Pt was to follow up in 6 months from last visit. Anne-Marie Ibrahim, Pharm.D. Clinical Pharmacist [facility] 04/07/2024, 8:36 AM [phone] documented in this encounter Plan of Treatment Upcoming Encounters Date Type Department Care Team (Late st Contact Info) Description 05/02/2024 8:00 AM EST Office Visit Cardiology, [facility] [address] [place] [address] Angélica Castañeda, JOAO [address] [place] [address] 07/26/2024 3:20 PM EDT Office Visit Family Practice [facility] [address] [facility] [place] [address] Nilo Whitley, DO [address] [facility] [place] [address] Scheduled Procedures Name Priority Associated Diagnoses Date/Ti [...] this encounter Medical Devices Implanted Type Area Silver Wrapper Device Identifier Shelf Expiration Date Model / Serial / Lot Suture Steel 6 B&S19 M654g - [id number] Implanted:Qty: 7 on 10/22/2020 by Harjeet Coelho MD at OR [facility] N/A: Sternum JNJ : [employer] 05/17/2025 [id number] / / RABBTJ documented as of this encounter Visit Diagnoses Diagnosis HTN, goal below 140/90 Unspecified essential hypertension ASCVD (arteriosclerotic cardiovascular disease) Unspecified cardiovascular disease S/P coronary artery stent placement Postsurgical percutaneous transluminal coronary angioplasty status S/P CABG x 3 Postsurgical aortocoronary bypass status Paroxysmal atrial fibrillation (HCC) Atrial fibrillation documented [...] and were consensually agreed upon. Care Teams Iron Carrier Relationship Specialty Start Date End Date Nilo Whitley DO [address] [place] [address], [place] [address] PCP - General Family Medicine 02/27/17 documented as of this encounter
--- OUTSIDE RECORDS SUMMARY | 2024-05-02 12:54 | External Medical Summary ---
Author Name Unknown Address Unknown Organization K09[facility] [place] [address] Laboratory Report Ordering Provider Test Date Status NASEEM STEIN 2024 14:02:25 Final Observation Date Value Abnormality Reference (Units ) Status WBC, Total 2024 14:02:25 7.75 4.00-10.8 0 (K/uL) Final RBC 2024 14:02:25 5.08 4.50-5.25 (M/uL) Final Hemoglobin 2024 14:02:25 15.3 14.0-16.8 (g/dL) Final HCT 2024 14:02:25 45.2 40.0-48.4 (%) Final MCV 2024 14:02:25 89.0 82.0-99.5 (fL) Final MCH 2024 14:02:25 30.1 27.0-34.0 (pg) Final MCHC 2024 14:02:25 33.8 32.0-36.0 (g/dL) Final RDW 2024 14:02:25 14.8 11.5-15.5 (%) Final Platelets 2024 14:02:25 151 140-400 (K /uL) Final MPV 2024 14:02:25 9.9 6.6-11.1 ( fL) Final Performing Location [facility] [place] [address]
--- OUTSIDE RECORDS SUMMARY | 2024-05-02 12:54 | External Medical Summary ---
Author Name Unknown Address Unknown Organization K09[facility] [address] [place] [address] Laboratory Report Ordering Provider Test Date Status JUWAN SIEGEL 2024 14:02:25 Final Observation Date Value Abnormality Reference (Units ) Status BUN 2024 14:02:25 20 6-20 (mg/dL) Final Creatinine 2024 14:02:25 1.1 0.6-1.2 (mg/dL) Final Glomerular filtration rate/1.73 sq M.predicted [Volume Rate/Area] in Serum, Plasma or Blood by Creatinine-based formula (CKD-EPI) 2024 14:02:25 69 >=60 (mL/min) Final eGFR is calculated based on the CKD-EPI 2020 equation. Sodium 2024 14:02:25 144 135-146 (m mol/L) Final Potassium 2024 14:02:25 4.4 3.5-5.1 (m mol/L) Final Cl 2024 14:02:25 107 98-107 (mm ol/L) Final CO2 2024 14:02:25 21 Below low normal 22- 32 (mmol/L) Final Anion gap 2024 14:02:25 16 Above high normal 7- 15 (mmol/L) Final Glucose 2024 14:02:25 100 70-120 (mg /dL) Final Albumin 2024 14:02:25 4.3 3.8-5.0 (g /dL) Final AST (Aspartate aminotransferase) 2024 14:02:25 27 10-50 (U/L) Fin al Alk Phos 2024 14:02:25 139 Above high normal 35 -130 (U/L) Final Bilirubin, Total 2024 14:02:25 1.4 Above high no rmal <=1.2 (mg/dL) Final Calcium 2024 14:02:25 9.5 8.4-10.2 ( mg/dL) Final Protein 2024 14:02:25 7.0 6.0-8.3 (g /dL) Final ALT (Alanine aminotransferase) 2024 14:02:25 18 10-50 (U/L) Anastacio preston Performing Location [facility] [address] [place] [address]
--- OUTSIDE RECORDS SUMMARY | 2024-05-02 12:54 | External Medical Summary | Summary of Care ---
Author Name Unknown Organization [facility] Address [address] [address] Phone [phone] Care Team Providers Care Seafood Technology Specialist Name Role Phone Malachi Whitleye Elizabeth PAERDES Primary Care Provider [phone] Reason for Visit * Reason Comments Outpatient Testing Encounter Details Date Type Department Care Team (Late st Contact Info) Description 2024 2:00 PM EDT Laboratory Laboratory [facility] [address] [place] [phone] [facility] 200 [facility] [place] [address] S/P coronary artery stent placement; Encounter for [...] Problem Noted Date Diagnosed Date Atherosclerosis of [place] co ronary artery of [place] heart without angina pectoris 06/29/2023 Paroxysmal atrial fibrillation 11/01/2021 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 (Household - [...] 05/02/2024 8:00 AM EST Office Visit Cardiology, [facility] [address] [place] [address] [address] PA-C [address] [place] [address] 07/26/2024 3:20 PM EDT Office Visit Family Practice [facility] [address] [facility] [place] [address] Nilo Whitley DO [address] [facility] [place] [address] Pending Results Name Type Priority Associated Diagnoses [...] Routine Easy bruising 2024 2:05 PM EDT URINE IMMUNOFIXATION, BENCE SHAFFER PROTEIN, RANDOM URINE Lab Routine Easy bruising 2024 2:05 PM EDT Scheduled Procedures Name Priority Associated Diagnoses Date/Ti [...] this encounter Medical Devices Implanted Type Area Curator Of Collections Device Identifier Shelf Expiration Date Model / Serial / Lot Suture Steel 6 B&S19 M654g - [id number] Implanted:Qty: 7 on 10/22/2020 by Harjeet Coelho MD at OR [facility] [place] N/A: Sternum JNJ : [employer] 05/17/2025 M654G / / [id number] documented as of this encounter Procedures Procedure Name Priority Date/Time Associated Diagnosis Comments CBC Routine 2024 2:02 PM EDT S/P coronary artery stent placement Encounter for long-term (current) use of medications documented in this encounter Results * CBC (2024 2:02 PM EDT) WBC 7.75 4.00 - 10.80 K/uL 2024 2:14 PM EDT [facility] [place] [facility] RBC 5.08 4.50 - 5.25 M/uL 2024 2:14 PM EDT [facility] [place] [facility] HGB 15.3 14.0 - 16.8 g/dL 2024 2:14 PM EDT [facility] 56 HCT 45.2 40.0 - 48.4 % 2024 2:14 PM EDT [facility] 56 MCV 89.0 82.0 - 99.5 fL 2024 2:14 PM EDT [facility] 56 MCH 30.1 27.0 - 34.0 pg 2024 2:14 PM EDT [facility] 56 MCHC 33.8 32.0 - 36.0 g/dL 2024 2:14 PM EDT [facility] 56 RDW 14.8 11.5 - 15.5 % 2024 2:14 PM EDT [facility] 56 PLT 151 140 - 400 K/uL 2024 2:14 PM EDT [facility] 56 MPV 9.9 6.6 - 11.1 fL 2024 2:14 PM EDT [facility] 56 Blood Venous blood specimen / Unknown Venipuncture / Unknown 2024 2:02 PM EDT 2024 2:02 PM EDT Nikhil Lopez [facility] LAB BLOOD ORDE NANCY [facility] Organization Address City/State/ZIP Co de Phone Number [facility] [address] [place] [phone] documented in this encounter Visit Diagnoses Diagnosis S/P coronary [...] and were consensually agreed upon. Care Teams Seafood Technology Specialist Relationship Specialty Start Date End Date Nilo Whitley DO [address] [place] [address] PCP - General Family Medicine 02/27/17 documented as of this encounter
--- OUTSIDE RECORDS SUMMARY | 2024-05-02 12:54 | External Medical Summary | Summary of Care ---
Author Name Unknown Organization [facility] Address [address] [address] Phone [phone] Care Team Providers Care Riding Double Name Role Phone Christal Echeverria DO Primary Care Provider [phone] Reason for Visit * Reason Comments eRx-Medication Refill Encounter Details Date Type Department Care Team (Late st Contact Info) Description 02/28/2024 Refill Family Practice [facility] [address] [facility] [place] [address] Christal [facility]ria [facility] [address] CEREBROVASCULAR DZ, POST-STROKE; S/P coronary artery stent placement Allergies Active Allergy Reactions Criticality Noted Date Comments Iodine Rash Low 08/08/2002 documented as of this encounter (statuses as of 03/01/2024) Medications Medication Sig Dispensed Refills Start Date [...] every morning 90 Tablet 3 05/28/2023 Active Atorvastatin Calcium 40 MG Oral Tablet (Lipitor)Indications :ASCVD (arteriosclerotic cardiovascular disease),Dyslipidemi a, goal LDL below 70 take 1 tablet by mouth every morning 90 Tablet 1 12/03/2023 Active Clopidogrel Bisulfate 75 MG Oral Tablet (pLAVix)Indications: Cerebrovascular disease, arteriosclerotic, post-stroke,S/P coronary artery stent placement take 1 tablet by mouth every morning 90 Tablet 1 03/01/2024 Active Clopidogrel Bisulfate 75 MG Oral Tablet (pLAVix)Indications: Cerebrovascular disease, arteriosclerotic, post-stroke,S/P coronary artery stent placement take 1 tablet by mouth every morning 90 Tablet 1 07/03/2023 Discontinued documented as of this encounter (statuses as of 03/01/2024) Active Problems Problem Noted Date Diagnosed Date Atherosclerosis of [place] co ronary artery of [place] heart without angina pectoris 06/29/2023 Paroxysmal atrial fibrillation 11/01/2021 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 (Household - for ages [...] encounter Miscellaneous Notes * Telephone Encounter - Fab Ja[facility] - 03/01/2024 8:57 AM EDT Signed Prescriptions: Disp Refills Clopidogrel Bisulfate 75 MG Oral Tablet (p*90 Tab*1 Sig: take 1 tablet by mouth every morningAuthorizing Provider: CHRISTAL ECHEVERRIA User: FAB JAIME documented in this encounter Plan of Treatment Upcoming Encounters Date Type Department Care Team (Late st Contact Info) Description 05/02/2024 8:00 AM EST Office Visit Cardiology, [facility] [address] [place] [address] [address] PA-C [address] [place] [address] 07/26/2024 3:20 PM EDT Office Visit Family Practice [facility] 200 [place] [address] Christal Echeverria DO 200 [place] [address] Scheduled Procedures Name Priority Associated Diagnoses Date/Ti [...] this encounter Medical Devices Implanted Type Area Welder Shielded Metal Arc Device Identifier Shelf Expiration Date Model / Serial / Lot Suture Steel 6 B&S19 M654g - [id number] Implanted:Qty: 7 on 10/22/2020 by Harjeet Coelho MD at OR [facility] [place] N/A: Sternum JN[employer] : [employer] 05/17/2025 [id number] / / [id number] documented as of this encounter Visit Diagnoses Diagnosis CEREBROVASCULAR DZ, POST-STROKE Cerebral atherosclerosis S/P coronary artery stent placement Postsurgical percutaneous transluminal coronary angioplasty status documented in this encounter Advance Directives * [...] and were consensually agreed upon. Care Teams Riding Double Relationship Specialty Start Date End Date Newhouser, Christal D, DO [address] [place], [place] [address] PCP - General Family Medicine 02/27/17 documented as of this encounter
--- OUTSIDE RECORDS SUMMARY | 2024-05-02 12:54 | External Medical Summary | Summary of Care ---
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 Name Role Phone SandroNilo williamson Primary Care Provider [phone] Reason for Visit * Reason Comments Follow Up Encounter Details Date Type Department Care Team (Late st Contact Info) Description 01/13/2024 10:30 AM EDT Office Visit Vascular Surgery, [facility] [address] [place] [address] Tacho John MD [address] [place] [address] Asymptomatic stenosis of right carotid artery* Allergies Active Allergy Reactions Criticality Noted Date Comments Iodine Rash Low 08/08/2002 documented as of this encounter (statuses as of 01/13/2024) Medications Medication Sig Dispensed Refills Start Date [...] as of this encounter (statuses as of 01/13/2024) Active Problems Problem Noted Date Diagnosed Date Atherosclerosis of [place] co ronary artery of [place] heart without angina pectoris 06/29/2023 Paroxysmal atrial fibrillation 11/01/2021 Coronary artery disease invo lving [place] coronary artery with angina pectoris 11/06/2020 Emphysema lung 11/06/2020 Unspecified atrial fibrillation 11/06/2020 S/P CABG x 3 10/28/2020 Asymptomatic stenosis of right carotid artery History of UT (myocardial infarction) 12/11/2017 Obesity, Class I, BMI [...] as of this encounter (statuses as of 01/13/2024) Resolved Problems Problem Noted Date Diagnosed Date [...] as of this encounter (statuses as of 01/13/2024) Immunizations Name Administration Dates Next Due COVID-19 [...] 05/18/1959 - 05/18/1979 Smokeless Tobacco: Current Snuff Tobacco Cessation:Ready to Q uit: Not Asked; Counseling Given: No Comments:01/13/2024 1 1/2 cans per week declined pamphlet Alcohol Use Standard [...] Sign Reading Time Taken Comments Blood Pressure 180/92 01/13/2024 10:24 AM EDT Pulse 57 01/13/2024 10:24 AM EDT Temperature 36.4 C (97.5 F) 01/13/2024 10:24 AM E DT Respiratory Rate - - Oxygen Saturation - - Inhaled Oxygen Concentration - - Weight 92.2 kg (203 lb 4.8 oz) 01/13/2024 10:24 AM EDT Height - - Body Mass Index 31.32 06/29/2023 9:52 AM EST documented in this [...] (15 years old or older) No 10/19/19 21 Cognitive Status Response Date of Assessm ent Because of a physical, menta l, or emotional condition, do you have serious difficulty concentrating, remembering, or making decisions? (5 years old or older) No 10/18/2020 documented as of this encounter Progress Notes * Harjeet Salguero PA-C - 01/13/2024 10:30 AM EDT Gaurav Ocampo is a 83 year old male. Referring Physician: Nilo Whitley DO Chief Complaint: 2 yr return, carotid stenosis. He has remained asymptomatic from his carotid disease Checks BPs @ home, well controlled High today, due to drive from home, coming in from parking lot Turning 84 this weekend Still plays golf, uses cart HPI: Former smoker with CAD, HTN, and dyslipidemia. TIA 1996 manifested by facial droop and left hand weakness, lasting about 1 hour. Symptoms resolvedby the time he reached the hospital. No residual and no recurrence. Patient referred to [facility] in 2013 with 50-69% R carotid stenosis and <50% L carotidstenosis. CAROTID DISEASE: Patient denies recent TIA, recent stroke and recent amaurosis fugax. Carotid duplex exam at [facility] identified the right internal carotid with 50- 69% and the left internal carotid with less than 50% stenosis. Current Outpatient Medications Medication Sig Dispense Refill [...] patient's allergies indicates: Allergen Reactions Iodine Rash Patient Active Problem List Diagnosis HTN, goal below 140/90 ADVANCE DIRECTIVE INFORMATION CAROTID STENOSIS, NON-SYMPTOMATIC CEREBROVASCULAR DZ, POST-STROKE Dyslipidemia, goal LDL below 70 Chews tobacco Bradycardia S/P coronary artery stent placement Family history of malignant neoplasm of prostate History of UT (myocardial infarction) Obesity, Class I, BMI 30.0-34.9 (see actual BMI) Asymptomatic stenosis of right carotid artery S/P CABG x 3 Coronary artery disease involving [place] coronary artery with angina pectoris (HCC) Emphysema lung (HCC) Unspecified atrial fibrillation (HCC) Paroxysmal atrial fibrillation (HCC) Atherosclerosis of [place] coronary artery of [place] heart without angina pectoris Past Medical History: Diagnosis Date ATHEROSCLEROTIC CORONARY DISEASE 08/08/1993 athere[place] [facility] [place] Calculus of kidney 1996 Carotid stenosis, non-symptomatic 11/02/2008 Modified per Carotid Stenosis protocol #10 Cerebrovascular event, ill-defined, within last 8 weeks 07/14/1995 ministroke negative workup, transient numbness HTN, goal below 140/90 08/06/2002 Mixed dyslipidemia 08/06/2002 NSTEMI (non-ST elevation myocardial infarction) ([facility]) 03/05/2017 Past Surgical History: Procedure Laterality Date CABG, ARTERIAL, SINGLE N/A 10/22/2020 CORONARY ARTERY BYPASS GRAFT USING ARTERY 1 GRAFT performed by Harjeet Coelho MD [place] [facility] CARDIAC STENT PLACEMENT, PERCUTANEOUS, 1 VESSEL 12/15/[address] [facility] [address] Shukla, BMS LAD, residual L main, cx and RCA disease COLONOSCOPY W/ BIOPSY (RECTUM) 08/03/08 rectal biopsy benign, repeat in 10 years COLONOSCOPY, DIAGNOSTIC (RECTUM) 01/26/2019 diverticulosis sigmoid colon/multiple small polyps transverse colon, biopsies show adenomatous polyps/recall 5 years health permitting/COLONOSCOPY FLEXIBLE PROXIMAL DIAGNOSTIC performed by Rony Bell MD at ENDOSCOPY [facility] CYSTOSCOPY/REMOVE OBJECT, SIMPLE 06/05/06 stent CYSTOURETERO W/LITHOTRIPSY 05/27/06 right ENDO,VIDEO ASSIST HARVEST RAKEL N/A 10/22/2020 ENDOSCOPY VIDEO ASSISTED HARVEST VEIN performed by Harjeet Coelho MD at [place] [facility] INSERT URETERAL SUPPORT 05-27-06 Ureteral Stent Placement RIGHT SIGMOIDOSCOPY, DIAGNOSTIC Family History Problem Relation Name Age of Onset Other (Other) Other Denies FmHx of AAA Stroke Mother Stroke Father Heart attack Father Stroke Sister Stroke Brother Heart attack Brother Stroke Sister Social History Socioeconomic History Marital status: Spouse name: Kassandra Number of children: Not on file Years of education: Not on file Highest education level: Not on file Occupational History 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 Employer: [employer] Tobacco Use Smoking status: Former Current packs/day: 0.00 Average packs/day: 1 pack/day for 20.0 years (20.0 ttl pk-yrs) Types: Cigarettes Start date: 05/18/1959 Quit date: 05/18/1979 Years since quittin.6 Smokeless tobacco: Current Types: Snuff Tobacco comments: 01/13/2024 1 1/2 cans per week declined pamphlet Vaping Use Vaping status: Never Used Substance and Sexual Activity Alcohol use: No Alcohol/week: 0.0 standard drinks of alcohol Drug use: No Sexual activity: Not on file Other Topics Concern Service Yes Comment: [employer] Blood Transfusions No Caffeine Concern Not Asked Occupational Exposure Not Asked Hobby Hazards Not Asked Sleep Concern Not Asked Stress Concern Not Asked Weight Concern Not Asked Special Diet Not Asked Back Care Not Asked Exercise Not Asked Bike Helmet Not Asked Seat Belt Not Asked Self-Exams Not Asked Social History Narrative Born [place], [place] Life long resident PT has 2 kids, 10 grand kids and 9.5 great grand kids Social Determinants of Health Financial Resource Strain: Low Risk (01/09/2024) Financial Resource Strain Do you have any trouble paying for your medications, or do you think you might in the future? (Adult - for ages 18 years and over): No Does your family have trouble paying for medicine? (Household - for ages 0-17 years): Not on file Food Insecurity: No Food Insecurity (01/09/2024) Food Insecurity Do you need food for this week? (Adult - for ages 18 years and over): No Are you able to get enough food for your family? (Household - for ages 0-17 years): Not on file Does your family need food this week? (Household - for ages 0-17 years): Not on file Do you always have enough food for your family? (Household - for ages 0-17 years): Not on file Transportation Needs: No Transportation Needs (01/09/2024) Transportation Needs Do you have trouble getting a ride to medical visits or work? (Adult - for ages 18 years and over):Not on file Does your family have a hard time getting a ride to doctors visits? (Household - for ages 0-17 years): Not on file Has lack of transportation kept you from medical appointments, meetings, work, or from getting things needed for daily living? Check all that apply. (Adult - for ages 18 years and over): No Do you (or your family) have trouble finding or paying for a ride (transportation)? (Household - for ages 0-17 years): Not on file Social Connections: Socially Integrated (01/09/2024) Social Connections How often do you feel lonely or isolated from those around you? (Adult - for ages 18 years and over): Never Housing Stability: Low Risk (01/09/2024) Housing Stability Do you currently live in a group home or have no steady place to sleep at night? (Adult - for ages 18 years and over): No Do you think you are at risk of becoming homeless? (Adult - for ages 18 years and over): Not on file Does your family worry about paying for your home or becoming homeless? (Household - for ages 0-17 years): Not on file Are you homeless or worried that you might be in the future? (Adult - for ages 18 years and over): No Are you (or your family) homeless or worried that you might be in the future? (Household - for ages0-17 years): Not on file REVIEW OF SYSTEMS: Constitutional: Denies fever, Denies shaking chills. Eyes: Denies amaurosis fugax. Ear, Nose, Throat and Mouth: Denies epistaxis. Cardiovascular: Denies chest pains, reports UT, reports coronary stent Respiratory: Denies shortness of breath, denies FAIR. Gastrointestinal: Denies bright red blood per rectum, denies post prandial abdominal pain. Genitourinary: Denies hematuria. Musculoskeletal: Reports arthritis. Skin: Denies ulcers. Neurological: Denies CVA, reports TIA in 1995. Psychiatric: Denies psychiatric hospitalization. Endocrine: Denies DM, reports hyperlipidemia. Hematologic: Denies blood clotting problems. GENERAL MULTI-SYSTEM PHYSICAL EXAM: VITAL SIGNS: BP 180/92 (BP Site: Left Arm, BP Position: Sitting, BP Cuff Size: Regular) | Pulse 57 | Temp 36.4 C (97.5 F) (Tympanic) | Wt 92.2 kg (203 lb 4.8 oz) | BMI 31.32 kg/m | BSA 2.1 m GENERAL MULTI-SYSTEM PHYSICAL EXAM: GENERAL: Normal grooming habits, no acute distress and appears stated age. NECK: No masses. RESPIRATORY: Respiratory effort normal and breath sounds normal. CARDIOVASCULAR: Systolic heart murmurs, no edema and no varicosities. GASTROINTESTINAL: no tenderness, protuberant and abdominal aorta not palpable. LYMPHATIC: cervical lymph nodes normal and inguinial lymph nodes normal. SKIN: no ulcers, no rash, no induration, capillary refill normal and no dependent rubor. PSYCHIATRIC: orientation to time, place and person normal and recent and remote memory normal. EYES: conjunctivae normal, eye lids normal, and irises normal. NEUROLOGIC: CN and motor function grossly intact PULSE SCALE: Carotid Right:----Bruit: No Left:----Bruit: Transmitted Radial Right: 3 Left: 3 Femoral Right: 3 Left: 3 Popliteal Right: 3 Left: 3 Dorsalis Pedis Right: 3 Left: 3 Posterial Tibial Right: 3 Left: 3 PULSE SCALE: 4=Aneurysmal; 3=Normal; 2=Diminished; 1=Barely Palpable; 0=Absent DIAGNOSTIC STUDIES: 01/06/24 Carotid Duplex: MYKEL 215/15, LICA 95/18, ante verts The above diagnostic images were directly visualized and independently interpreted by me on 01/13/2024 with results as above 01/01/22 Carotid Duplex: MYKEL 219/37, LICA 103/24 11/21/19: Carotid Duplex: MYKEL 180/28, LICA 106/26 04/08/17: Carotid Duplex: MYKEL 210/33, LICA 101/28 04/08/17: AAA Screen: No AAA 01/29/15 Carotid Duplex MYKEL 224/49 and LICA 68/25. 01/06/14: Carotid Duplex: MYKEL 240/50, LICA 106/37 05/09/13: Carotid Duplex: MYKEL 227/49, LICA 99/31 12/30/07: Carotid Duplex: MYKEL 171/37, LICA 81/31 IMPRESSIONS: Asymptomatic 50-69% MYKEL stenosis. Asymptomatic <50% LICA stenosis. TIA 1995. No AAA, per 2017 screening duplex. CAD. PTCI 1993, 2012, and 2016. Cardiac murmur. 2021 TTe showed moderate aortic sclerosis (calcification), without stenosis. LVEF 63% HTN. Dyslipidemia, on a statin Former smoker. PLAN: The patient was counseled regarding the pathophysiology and natural history of carotid disease, as well as the symptoms of CVA/TIA/amaurosis fugax. Continue plavix 75 mg for coronary stent. Continue aspirin 81 mg daily for antiplatelet therapy. Continue statin Lipitor 40 mg daily for treatment of dyslipidemia RTC in 2 years with carotid duplex prior at [facility]. The patient was seen and examined with Tacho John MD. Harjeet Salguero PA-C I have reviewed the advanced practitioner's documentation on the date of service referenced in note, and I agree with, and take responsibility for the plan of care. He feels great 2 year f/u carotid disease Carotid duplex unchanged for over 10 years F/u 2 yrs Tacho John MD Section of Vascular [place] [address] [phone] documented in this encounter Nursing Notes * Cayla Blackman CMA - 01/13/2024 10:27 AM EDT Reviewed the option of transferring scripts to [facility] pharmacy with patient and / or family. Cayla Blackman CMA documented in this encounter Plan of Treatment Upcoming Encounters Date Type Department Care Team (Late st Contact Info) Description 2024 1:00 PM EDT Office Visit Family Practice [facility] [address] [facility] [place] [address] Nilo Whitley DO [address] [place] [address] Scheduled Orders Name Type Priority Associated Diagnoses Orde r Schedule VASC DUPLEX CAROTID BILAT Medical Imaging Routine Asymptomatic stenosis of right carotid artery Ordered: 01/13/2024 Scheduled Procedures Name Priority Associated Diagnoses Date/Ti [...] 06/29/2024 06/29/2023 Albumin/Creatinine Ratio 06/04/2026 06/04/2023, 04/17 DTap/Tdap Vaccines [...] this encounter Medical Devices Implanted Type Area Veterinary Technician Device Identifier Shelf Expiration Date Model / Serial / Lot Suture Steel 6 [id number] - [id number] Implanted:Qty: 7 on 10/22/2020 by Harjeet Coelho [place] [facility] N/A: Sternum JN[place] : [employer] 05/17/2025 [id number] / / [id number] documented as of this encounter Visit Diagnoses Diagnosis Asymptomatic stenosis of right carotid artery- Primary documented in this encounter Advance Directives * [...] and were consensually agreed upon. Care Teams Petroleum Refining Firer Relationship Specialty Start Date End Date Nilo Whitley DO [address] [place] [address] PCP - General Family Medicine 02/27/17 documented as of this encounter"
--- OUTSIDE RECORDS SUMMARY | 2024-05-02 12:54 | External Medical Summary ---
Author Name Unknown Address Unknown Organization K01:[facility] [place] [address] [place] [id number] Laboratory Report Ordering Provider Test Date Status CHRISTALJUWAN 2024 14:05:24 Final Observation Date Value Abnormality Reference (Units) Status PARAPROTEIN NORMAL/ABNORMAL 2024 14:05:24 Normal Normal Final Protein, Urine 2024 14:05:24 14 (mg/dL) Final Immunofixation for Urine Narrative 2024 14:05:24 No monoclonal free light chains present (Bence Shaffer protein). Final Performing Location [facility] - [address] [place] [id number]
--- NOTE | 2024-05-02 16:00 | History & Physical Bridge Note ---
Date of Service May 02, 2024 History & Physical Bridge Note I have examined the patient, reviewed the History & Physical and in the interval since the performance of the History & Physical I have noted the following changes of clinical significance: pt with CHB for a dual chamber pacemaker; discussed the procedure and potential risks with the patient and family they expressed an understanding and consents signed.
--- NOTE | 2024-05-02 16:01 | Pre Anesthesia Assessment ---
Date of Service May 02, 2024 Pre Sedation Assessment Vital Signs Temp Pulse Pulse Resp BP BP Pulse Ox 05/02/24 15:27 48 L 18 171/91 H 99 05/02/24 15:00 31 L 15 190/68 H 97 05/02/24 14:00 24 L 16 188/82 H 96 05/02/24 11:46 36.4 C L 53 L 16 188/82 H 96 05/02/24 11:42 36.4 C L 53 L 15 188/82 H 96 05/02/24 11:16 47 L 20 186/93 H 97 05/02/24 10:53 47 L 20 165/78 H 96 05/02/24 10:53 96 05/02/24 10:08 96 05/02/24 10:08 29 L 20 162/84 H 100 05/02/24 09:58 100 05/02/24 09:58 36.9 C 60 20 162/84 H 98 05/02/24 09:53 30 L O2 Del Method 05/02/24 15:27 Room Air 05/02/24 15:00 Room Air 05/02/24 14:00 Room Air 05/02/24 11:46 Room Air 05/02/24 11:42 Room Air 05/02/24 11:16 Room Air 05/02/24 10:53 Room Air 05/02/24 10:53 Room Air 05/02/24 10:08 Room Air 05/02/24 10:08 Room Air 05/02/24 09:58 Room Air 05/02/24 09:58 Room Air 05/02/24 09:53 Cardiovascular + bradycardic Respiratory normal respiratory effort, lungs clear to auscultation Pre-Sedation Airway Assessment Smoking Status: Former smoker Hx Sleep Apnea: No Short, Thick Neck: No Thyromental Distance: > or= 3.5 Finger Breadths Oral Cavity: + Dentures Mallampati Class: III ASA: ASA3 NPO Status Date of Last Intake of Fluids: 05/02/24 Time of Last Intake of Fluids: 06:00 Date of Last Intake of Solid Food: 05/02/24 Time of Last Intake of Solid Foods: 06:00 Procedure Planning Contraindications for Sedation: none Current Medications Reviewed: Yes Notes The planned sedation has been discussed with the patient. Informed Consent was obtained. I have identified the patient, determined the appropriateness of sedation and have assessed the patient immediately prior to the procedure. All medicine(s) and interventions are by my order.
[2024-05-02] MEDS: LIDOCAINE 1% LOCAL 20 ML VIAL ONE (16:21)
[2024-05-02] MEDS: BUPIVACAINE 0.25% PF 30 ML VIAL ONE (16:21)
[2024-05-02] MEDS: WATER, STERILE FOR INJ 10 ML VIAL ONE (16:22)
[2024-05-02] MEDS: diphenhydrAMINE 50 MG/ML VIAL ONE (16:22)
[2024-05-02] MEDS: VANCOMYCIN HCL 1000MG/20ML VIAL ONE (16:22)
[2024-05-02] MEDS: ceFAZolin 330 MG/ML 1 GM VIAL ONE (16:22)
[2024-05-02] MEDS: methylPREDNISolone 125 MG/2 ML VIAL ONE (16:23)
[2024-05-02] MEDS: MIDAZOLAM HCL 5 MG/ML 1 ML VIAL ONE (17:48)
[2024-05-02] MEDS: ENALAPRILAT 2.5 MG/2 ML 2ML VIAL IV ONE (17:49)
[2024-05-02] MEDS: fentaNYL citrate PF 100 MCG/2 ML VIAL ONE (17:49)
--- NOTE | 2024-05-02 18:05 | Post Anesthesia Assessment ---
Date of Service May 02, 2024 Post Sedation Assessment Vital Signs Temp Pulse Pulse Resp BP BP Pulse Ox 05/02/24 15:27 48 L 18 171/91 H 99 05/02/24 15:00 31 L 15 190/68 H 97 05/02/24 14:00 24 L 16 188/82 H 96 05/02/24 11:46 36.4 C L 53 L 16 188/82 H 96 05/02/24 11:42 36.4 C L 53 L 15 188/82 H 96 05/02/24 11:16 47 L 20 186/93 H 97 05/02/24 10:53 47 L 20 165/78 H 96 05/02/24 10:53 96 05/02/24 10:08 96 05/02/24 10:08 29 L 20 162/84 H 100 05/02/24 09:58 100 05/02/24 09:58 36.9 C 60 20 162/84 H 98 05/02/24 09:53 30 L O2 Del Method 05/02/24 15:27 Room Air 05/02/24 15:00 Room Air 05/02/24 14:00 Room Air 05/02/24 11:46 Room Air 05/02/24 11:42 Room Air 05/02/24 11:16 Room Air 05/02/24 10:53 Room Air 05/02/24 10:53 Room Air 05/02/24 10:08 Room Air 05/02/24 10:08 Room Air 05/02/24 09:58 Room Air 05/02/24 09:58 Room Air 05/02/24 09:53 Recovery Score Activity: Moves 4 extremities Respiration: Deep Breath/Cough Circulation: +/-20% PreAnes Value Consciousness: Fully Awake Oxygen Saturation: > 92% On Room Air Discharge Sedation Level of Care: Fast Track Phase II Post Sedation Plan On clinical assessment, the patient appears to have tolerated the sedation without complications. Patient is recovering as anticipated. Patient will continue to be monitored by nursing and may be discharged when sedation discharge criteria are met per below protocol. Upon Completions of procedure up to 15 minutes continue every 5 minute vital signs and the P.A.R. score; then discharge to a Phase I or Fast Track to Phase II per the following guidelines: * Discharge Patient to appropriate Phase II area if PAR is 8 or greater or return to pre- procedure baseline. The post - procedure orders will be as directed. * If PAR score is less than 8 or not return to pre-procedure baseline then patient will follow Phase I monitoring till PAR is reached for Phase II. The Phase I may be done in procedure room or may call to secure a Phase I area. * If naloxone or flumazenil are used for reversal, hold in Phase I for continued monitoring from when last reversal dose was given for a minimum of 60 minutes or longer pending the nurse and/or physician discretion of patient condition before discharge to Phase II. Please call the Sedation Physician to re-evaluate and complete post-note for discharge to Phase II area. Do NOT discharge from procedure sedation or Phase 1 until post- sedation evaluation note is complete by procedure /sedation MD Sedation Discharge Instructions to be given to the patient at discharge to home.
--- NOTE | 2024-05-02 22:01 | XRay Report ---
Exam(s): XR CXR 1 VIEW EXAM: XR Chest, 1 View CLINICAL HISTORY: Reason for exam: s/p ppm ensure no PTX. TECHNIQUE: Frontal view of the chest. COMPARISON: Prior chest x-ray from May 02, 2024 FINDINGS: There is a new cardiac pacemaker in the left chest wall distal lead in the right atrium and right ventricle. Lungs: Unremarkable. No consolidation. Pleural space: Unremarkable. No pneumothorax. Heart: Unremarkable. No cardiomegaly. Mediastinum: Unremarkable. Normal mediastinal contour. Bones/joints: Status post median sternotomy with sternal wires intact. No acute fracture. IMPRESSION: Status post cardiac pacemaker placement in the left chest wall with distal leads in the right atrium and right ventricle. No evidence of pneumothorax. Electronically signed by: Bianca Wallace MD 05/02/24 22:00 PM
--- NOTE | 2024-05-03 05:31 | Electrocardiogram Report ---
Test Reason : Blood Pressure : */* mmHG Vent. Rate : 58 BPM Atrial Rate : 58 BPM P-R Int : 536 ms QRS Dur : 100 ms QT Int : 450 ms P-R-T Axes : 36 -13 263 degrees QTcB Int : 441 ms Sinus bradycardia with 1st degree A-V block Left ventricular hypertrophy with repolarization abnormality ( R in aVL , [place] product ) Cannot rule out Septal infarct , age undetermined Abnormal ECG When compared with ECG of 18-Oct-2020 10:08, Minimal criteria for Septal infarct are now Present Confirmed by Robbie Cruz ([id number]) on 05/03/2024 5:30:53 AM Referred By: REFERRED SELF Confirmed By: Robbie Cruz
--- NOTE | 2024-05-03 05:34 | Electrocardiogram Report ---
Test Reason : Blood Pressure : */* mmHG Vent. Rate : 35 BPM Atrial Rate : 53 BPM P-R Int : * ms QRS Dur : 96 ms QT Int : 476 ms P-R-T Axes : -10 -13 79 degrees QTcB Int : 363 ms Sinus bradycardia with 2nd degree A-V block ([place] I) and 2:1 AV conduction Left ventricular hypertrophy with repolarization abnormality ( R in aVL , [place] product ) Cannot rule out Septal infarct (cited on or before 02-May-2024) Abnormal ECG When compared with ECG of 02-May-2024 09:39, Sinus rhythm is now with 2nd degree A-V block Vent. rate has decreased by 23 bpm QT has shortened Reconfirmed by Robbie Cruz ([id number]) on 05/03/2024 5:37:45 AM Referred By: REFERRED SELF Confirmed By: Robbie Cruz
--- NOTE | 2024-05-03 05:37 | Electrocardiogram Report ---
Test Reason : Blood Pressure : */* mmHG Vent. Rate : 28 BPM Atrial Rate : 54 BPM P-R Int : * ms QRS Dur : 104 ms QT Int : 466 ms P-R-T Axes : -6 -20 56 degrees QTcB Int : 317 ms Sinus bradycardia with 2nd degree A-V block with 2:1 A-V conduction Moderate voltage criteria for LVH, may be normal variant ( R in aVL , [place] product ) Septal infarct (cited on or before 02-May-2024) Abnormal ECG When compared with ECG of 02-May-2024 09:46, 2:1 AV block is now present Confirmed by Robbie Cruz ([id number]) on 05/03/2024 5:37:26 AM Referred By: REFERRED SELF Confirmed By: Robbie Cruz
--- NOTE | 2024-05-03 05:39 | Electrocardiogram Report ---
Test Reason : Blood Pressure : */* mmHG Vent. Rate : 31 BPM Atrial Rate : 56 BPM P-R Int : * ms QRS Dur : 188 ms QT Int : 542 ms P-R-T Axes : 10 242 41 degrees QTcB Int : 389 ms Sinus bradycardia with complete heart block and Idioventricular rhythm Right bundle branch block Abnormal ECG When compared with ECG of 02-May-2024 09:48, Idioventricular rhythm is now Present Complete heart block is now present Confirmed by Robbie Cruz ([id number]) on 05/03/2024 5:38:43 AM Referred By: REFERRED SELF Confirmed By: Robbie Cruz
--- NOTE | 2024-05-03 05:41 | Electrocardiogram Report ---
Test Reason : Blood Pressure : */* mmHG Vent. Rate : 33 BPM Atrial Rate : 58 BPM P-R Int : * ms QRS Dur : 96 ms QT Int : 494 ms P-R-T Axes : 22 -8 -75 degrees QTcB Int : 365 ms Sinus bradycardia with 2nd degree A-V block (Mobitz I) Left ventricular hypertrophy with repolarization abnormality Abnormal ECG When compared with ECG of 02-May-2024 14:06, (unconfirmed) Sinus rhythm is now with 2nd degree A-V block (Mobitz I) Confirmed by Robbie Cruz ([id number]) on 05/03/2024 5:41:08 AM Referred By: REFERRED SELF Confirmed By: Robbie Cruz
--- NOTE | 2024-05-03 05:41 | Electrocardiogram Report ---
Test Reason : Blood Pressure : */* mmHG Vent. Rate : 24 BPM Atrial Rate : 32 BPM P-R Int : * ms QRS Dur : 96 ms QT Int : 516 ms P-R-T Axes : * -13 -80 degrees QTcB Int : 325 ms Sinus bradycardia with 2:1 A-V conduction Left ventricular hypertrophy with repolarization abnormality Abnormal ECG When compared with ECG of 02-May-2024 09:50, 2:1 AV block has replaced complete heart block Confirmed by Robbie Cruz ([id number]) on 05/03/2024 5:40:30 AM Referred By: REFERRED SELF Confirmed By: Robbie Cruz
--- NOTE | 2024-05-03 05:42 | Electrocardiogram Report ---
Test Reason : Blood Pressure : */* mmHG Vent. Rate : 46 BPM Atrial Rate : 46 BPM P-R Int : 544 ms QRS Dur : 100 ms QT Int : 538 ms P-R-T Axes : 16 -7 -19 degrees QTcB Int : 470 ms Sinus bradycardia with 1st degree A-V block Left ventricular hypertrophy with repolarization abnormality Abnormal ECG When compared with ECG of 02-May-2024 14:07, Sinus rhythm is no longer with 2nd degree A-V block (Mobitz I) Confirmed by Robbie Cruz ([id number]) on 05/03/2024 5:41:32 AM Referred By: REFERRED SELF Confirmed By: Robbie Cruz
[2024-05-03 07:21] LABS: Hematocrit (blood only) 41.9 % (42.0-52.0); Hemoglobin 13.9 g/dl (14.0-18.0); Mean Corpuscular Hemoglobin 28.5 pg (25.0-34.0); Mean Corpuscular Hgb Conc 33.2 g/dL (32.0-36.0); Mean Corpuscular Volume 85.9 fL (80.0-100.0); Mean Platelet Volume 9.9 fL (9.4-12.4); Platelet Count 154 K/uL (130-400); RDW Standard Deviation 43.8 fL (36.4-46.3); Red Blood Count 4.88 M/uL (4.70-6.10)
[2024-05-03 07:38] LABS: Albumin Globulin Ratio 1.2 (0.9-2); Albumin Level 3.6 gm/dl (3.4-5.0); BUN Creatinine Ratio 24.4 (10-20); Bilirubin,Total 1.4 mg/dl (0.2-1.0); Calcium 8.7 mg/dl (8.6-10.3); Creatinine Clr Calc Pharmacy 66.1 ml/min; Magnesium 1.8 mg/dl (1.7-2.4); Phosphorus 3.7 mg/dl (2.5-4.9); Potassium 3.9 mmol/L (3.5-5.1); Total Protein 6.6 gm/dl (6.0-8.3)
[2024-05-03] MEDS: ASPIRIN 81 MG ECTAB PO SCH (08:01)
[2024-05-03] MEDS: lisinopril 10 MG TAB PO SCH (08:01)
[2024-05-03] MEDS: ATORVASTATIN 40 MG TAB PO SCH (08:01)
--- NOTE | 2024-05-03 09:53 | Cardiology Progress Note ---
Date of Service May 03, 2024 Assessment & Plan (1) Intermittent complete heart block: (2) Mobitz type 2 second degree atrioventricular block: (3) HTN (hypertension): (4) S/P CABG x 3: Plan Intermittent complete heart block with A-V dissociation. Status post May 02, 2024 dual-chamber [place] pacemaker implantation without complication. Device interrogated by [employer] technical services representative this AM and found to be functioning appropriately; remote monitor paired and provided. Hypertension, uncontrolled. Resume metoprolol tartrate 25 mg twice per day. Continue lisinopril 10 mg/day. Patient may require low-dose loop diuretic a few days per week as discussed. ASCVD. Status post CABG on October 22, 2020, receiving a EGAN to the LAD, SVG to the obtuse marginal, and SVG to the PDA. History of postoperative paroxysmal atrial fibrillation, without reoccurrence. Resume metoprolol as above. Continue antiplatelet therapy, chronically prescribed both aspirin 81 mg/day and clopidogrel 75 mg/day noting history of CVA and bilateral internal carotid artery disease. Continue statin and latonya inhibition. Dyslipidemia. LDL cholesterol 57 mg/dL on June 04, 2023. Continue moderate intensity statin therapy with atorvastatin 40 mg/day. Okay for discharge from cardiac standpoint. Follow-up with the [facility] for a wound check and device interrogation in 7-10 days; office is aware and will call patient with a date and time. General Cardiology follow-up with Dr. Huynh and/or Madhuri Plaza PA-C in 2-3 months, or as needed. Admission and Anticipated Discharge Date Admission Date: May 02, 2024 Supervising Physician Co-Signing Physician Notes I have personally performed a history and physical examination on the patient. I have reviewed the advance practitioner's documentation, and I agree with, and take responsibility for the plan of care. 84-year-old male presents with complete heart block status post dual-chamber pacemaker implantation 05/02/2024. Blood pressure mildly elevated. Recommend restart beta-марина therapy. Continue LATONYA inhibitor. Post-PPM implant activity restrictions reviewed[facility]10 [facility]. Outpatient cardiology follow-up in 2 to 3 months. Kev Palomo DO, [facility] Subjective Patient seen and examined. Chart, medications, telemetry reviewed. Patient initially presented to outpatient clinic for routine cardiology follow- up intermittent symptomatic complete heart block with A-V dissociation. No reversible etiology observed. Patient status post dual-chamber permanent left subclavian pacemaker implantation by Dr. Cleaning, implanting an W4 MRI 2272 pacemaker on May 02, 2024 at [facility] without overt complications. Review of Systems Review of Systems: Complete Review of Systems is as stated above, negative, or noncontributory. Physical Exam Physical Exam: General: A&Ox3. NAD. HENT: Normocephalic. Atraumatic. Eyes: PER. Conjunctiva pink, sclera clear. Neck: No carotid bruits. No JVD. No HJR. Chest: Left subclavian pacemaker dressing with minimal bleeding over incision, inferolateral ecchymosis over anterior axillary area, no significant hematoma Heart: Regular, paced. No rub. Grade I-II/ systolic murmur. Lungs: Diminished however clear to auscultation. Abdomen: +BS. Soft. Nontender. No masses or organomegaly. Extremities: Mild distal bilateral lower extremity peripheral edema. No clubbing. No cyanosis. Limited neurological examination is without focal deficits. Pulses: Posterior tibial=1/4. Results & Data Vital Signs (Past 12 Hours) Vital Signs Temp Pulse Resp BP Pulse Ox O2 Del Method 05/03/24 07:45 36.4 C L 83 18 166/95 H 96 Room Air 05/03/24 03:07 36.8 C 90 17 151/83 H 94 Room Air 05/02/24 23:12 36.4 C L 65 16 150/84 H 93 Room Air 05/02/24 22:09 61 18 156/80 H 94 Room Air Laboratory Results Cardiac Enzymes 05/02/24 05/02/24 05/02/24 Range/Units 09:45 12:13 18:36 AST 20 (13-39) U/L Troponin I High Sens 22.2 H 20.4 H 5566.9 H* D (0-20) pg/ml 05/03/24 05/03/24 Range/Units 00:14 06:40 AST 28 (13-39) U/L Troponin I High Sens 3667.9 H* D 1977.4 H* D (0-20) pg/ml Coagulation 05/02/24 Range/Units 09:45 PT 11.1 (9.0-12.0) Seconds APTT 23 (21-31) Seconds CBC 05/02/24 05/03/24 Range/Units 09:45 06:40 WBC 9.69 12.50 H (4.8-10.8) K/ul RBC 5.03 4.88 (4.70-6.10) M/uL Hgb 14.6 13.9 L (14.0-18.0) g/dl Hct 43.0 41.9 L (42.0-52.0) % Plt Count 164 154 (130-400) K/uL Neut # (Auto) 6.01 (1.40-6.50) K/uL Lymph # (Auto) 2.37 (1.20-3.40) K/uL [place] # (Auto) 0.95 H (0.11-0.59) K/uL Eos # (Auto) 0.26 (0.00-0.50) K/uL Baso # (Auto) 0.06 (0.00-0.20) K/uL Comprehensive Metabolic Panel 05/02/24 05/03/24 Range/Units 09:45 06:40 Sodium 140 138 (136-145) mmol/L Potassium 3.9 3.9 (3.5-5.1) mmol/L Chloride 109 H 108 H (98-107) mmol/L Carbon Dioxide 22 21 (21-32) mmol/L BUN 15 19 (6-23) mg/dl Creatinine 0.76 0.78 (0.6-1.4) mg/dl Glucose 95 145 H (70-99(Fasting)) mg/dl Calcium 9.3 8.7 (8.6-10.3) mg/dl AST 20 28 (13-39) U/L ALT 13 12 (7-52) U/L Alkaline Phosphatase 109 H 105 H (34-104) U/L Total Protein 6.8 6.6 (6.0-8.3) gm/dl Albumin 3.9 3.6 (3.4-5.0) gm/dl Intake and Output 05/02/24 05/03/24 05/03/24 22:59 06:59 14:59 Intake Total 150 / 150 981.667 / 981.667 Output Total 500 / 1100 600 / 1100 1 / 1 Balance -500 / -950 -450 / -950 980.667 / 980.667 Intake: IV 981.667 / 981.667 Sodium Chloride 0.9% 1,000 ml @ 981.667 / 981.667 50 mls/hr IV .Q20H ONE Rx#: [id number] Oral 150 / 150 Output: Urine 500 / 1100 600 / 1100 # Bowel Movements 1 / Other: # Unmeasured Voids 1 Weight 64 kg Weight Measurement Method Built in [facility] (3) HTN (hypertension) Hypertension type: primary hypertension Qualified Code(s): I10 - Essential (primary) hypertension
[2024-05-03] MEDS: METOPROLOL TARTRATE 25 MG TAB PO SCH (10:47)
--- NOTE | 2024-05-03 10:55 | Discharge Summary ---
Discharge Summary Date of Service May 03, 2024 Principal Dx & Hospital Course #1 = Principal Diagnosis (1) Third degree AV block: (2) Mobitz type 2 second degree atrioventricular block: (3) Intermittent complete heart block: (4) Demand ischemia of myocardium: (5) Symptomatic bradycardia: (6) Hypertension, uncontrolled: (7) Coronary artery disease: Plan Patient presented to the emergency room from the sink maker office with EKG readings of second-degree Mobitz type II heart block and at times complete third-degree heart block. Patient was slightly symptomatic with some dizziness. Laboratory studies showed evidence of demand ischemia due to his bradycardia. Patient was admitted to the hospital. He was placed on temporary pacemaker pads. He was immediately evaluated by cardiology. Cardiology recommended pacemaker insertion. Electrophysiology cardiology consultation was placed. Patient underwent dual-chamber pacemaker placement on 05/02/2024. His postprocedure course was uneventful. With the pacemaker functioning appropriately his beta-марина was resumed for blood pressure control. Pacer interrogation on the day of discharge showed that it was functioning appropriately. The patient was feeling well. Vital signs are stable laboratory studies were stable. He was given instructions on limited motion of his left arm. He will be discharged home to follow-up with his PCP and cardiology out patient. Notes For Next Care Provider Follow-up with cardiology as coordinated through their office Medication Changes From Visit None Admission HPI Per Admitting Provider Gaurav Ocampo is an 84-year-old male with past medical history significant for dyslipidemia, emphysema, HTN, bilateral carotid artery stenosis, cerebrovascular disease, history of CVA on Plavix, CAD s/p CABG x 3 in 2020, history of [place] s/p stenting, bradycardia, paroxysmal atrial fibrillation, chewing tobacco use, history of cigarette use and history of renal calculi whom presented to the ED on 05/02/2024 via EMS after he was found to have a third degree heart block on outpatient EKG with AV dissociation during a routine cardiology visit with Madhuri Plaza PA-C at [facility]. History obtained from patient, family at bedside and associated chart review. Patient has been relatively asymptomatic recently except for some mild fatigue and intermittent "brain fog" which has been ongoing since this weekend. Denies any recent chest pain, shortness of breath, palpitations or syncopal events. Upon arrival to the ED, he was found to be significantly bradycardic with a heart rate in the 20s however he remained completely asymptomatic. Telemetry in the ED revealed possible second-degree type II AV block with intermittent ventricular escape beats per discussion with the ED provider. His heart rate remained in the 30s to 40s throughout our conversation in the ED and telemetry was consistent with second-degree type II AV block with intermittent ventricular escape beats. He did endorse some occasional dizziness when rising quickly from a stooped position - a symptom he has experienced for most of his life per his . He denies any recent tick bites. He took his medications this morning, including his metoprolol tartrate 25mg which he takes twice a day. He denies any recent cough, fever, chills or increased lower extremity edema. On-call sink maker, Dr. Palomo, was made aware of this patient by the ED provider. Instructed to keep the patient NPO in anticipation for cardiac pacemaker placement. Admission Exam Per Admitting Provider See H&P Discharge Exam Constitutional: Alert, nontoxic, no acute distress, sitting in chair HEENT: Mucous membranes moist. Lungs: Clear to auscultation, decreased, no wheezes rales or rhonchi CV: S1-S2, regular, systolic murmur Chest: Dressing over pacemaker site dry. Some expected ecchymosis around pacemaker pocket. Incision clean Abdomen: Soft, nontender, nondistended Extremities: No significant edema Neuro: No focal deficits Psych: Cooperative, normal mood Updated Medication List Medication Instructions Recorded Confirmed Type aspirin 81 mg chewable tablet 81 mg PO QAM #0 tabs 12/15/12 05/02/24 History ascorbic acid (vitamin C) 500 mg 1,000 mg PO QDL 10/17/20 05/02/24 History tablet (Vitamin C) atorvastatin 40 mg tablet 40 mg PO QAM 10/18/20 05/02/24 History cholecalciferol (vitamin D3) 25 25 mcg PO QDL 10/18/20 05/02/24 History mcg (1,000 unit) tablet (Vitamin D3) clopidogrel 75 mg tablet 75 mg PO QAM 10/18/20 05/02/24 History coenzyme Q10 100 mg capsule 100 mg PO QDL 10/18/20 05/02/24 History (CoQ-10) nitroglycerin 0.4 mg sublingual 0.4 mg sublingual Q5M PRN Chest 10/18/20 05/02/24 History tablet Pain lisinopril 10 mg tablet 10 mg PO QAM 05/02/24 05/02/24 History metoprolol tartrate 25 mg tablet 25 mg PO BID 05/02/24 05/02/24 History vitamin E 268 mg (400 unit) capsule 268 mg PO QDL 05/02/24 05/02/24 History vitamins A,C,T-hteh-fjvexb 4,296 1 cap PO BID 05/02/24 05/02/24 History mcg-226 mg-90 mg capsule (PreserVision AREDS) Hospital Stay Data Consultations 05/02/24 10:38 ED Decision to Admit Stat 05/02/24 10:46 Consult Cardiology Routine Procedures Performed Operation Date: 05/02/24 16:00 Actual Procedures p Pacer with A/V Leads (Dual) - Martina Cleaning DO s Venogram, Unilateral - Martina Cleaning DO Diagnostic Imagining Performed 05/02/24 16:15 EP Lab Images for PACS ONCE Reviewed imaging, laboratory and diagnostic studies. Pertinent findings as below. Personally reviewed EKG post pacemaker, paced rhythm Troponins peaked at 5566, trended down to 1977 Creatinine 0.78 Electrolytes stable WBCs 12.5 Hemoglobin 13.9 Pending Results Patient Have Any Pending Studies at Discharge: No Discharge Instructions Given to Patient (Per Discharging Provider) Device and wound check at [facility] in 10 days-someone will call you a time and day Total Time Total Time Spent Total Time Spent (In Minutes): 33
[2024-05-03 11:47] VITALS: BP 157/79; PULSE 70; RESP 17; TEMP 98.6; O2SAT 95
== END 2024-05-03 13:07 | disposition home or self-care (01) | DRG 243 ==
LOC: ED 09:34 → SUATTDRO 10:46 → 2S 10:46